=== PATIENT | female | born 1955 | race Caucasian/White ===

== ENCOUNTER 2017-07-15 13:05 | Inpatient (IN) | payer MEDICARE, MEDICAID ==
[2017-07-15] MEDS ORDERED: Metoclopramide 10 MG/2 ML SDV IVPUSH ONE ×2 (13:09→14:57)
[2017-07-15] MEDS ORDERED: HYDROmorphone 1 MG/ML Syringe IVPUSH ONE ×3 (13:13→18:26)
[2017-07-15] MEDS ORDERED: Sodium Chloride 0.9% 1,000 ML IV ONE (13:14)
--- NOTE | 2017-07-15 13:20 | EDM.PDOC ---
ED HPI GENERAL MEDICAL PROBLEM - General Chief Complaint: Abdominal Pain Stated Complaint: ABDOMINAL PAIN Time Seen by Provider: 07/15/17 13:05 Source of Information: Reports: Patient, EMS, Old Records History Limitations: Reports: No Limitations - History of Present Illness INITIAL COMMENTS - FREE TEXT/NARRATIVE: 61 yo female with a pHx of multiple bowel surgeries and who currently has a colostomy presents with acute onset about 0430h today of abdominal pain and vomiting. Feels some new bulges in her abdomen that weren't there before. No fever. No bleeding. Her last stool was a little on the hard side. Here via EMS. 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 gentamicin [Gentamicin] Allergy Severe anaphylaxis, Verified 07/15/17 13:42 resp. distress vancomycin Allergy Severe anaphylaxis Verified 07/15/17 13:42 amoxicillin [Amoxicillin] Allergy Intermediate generalized Verified 07/15/17 13: 42 rash ciprofloxacin Allergy Intermediate rash and Verified 07/15/17 13:42 swelling clarithromycin [From Biaxin] Allergy Intermediate generalized Verified 07/15/17 13:42 rash erythromycin base Allergy Intermediate Hives Verified 07/15/17 13:42 [Erythromycin Base] penicillin V [Penicillin V] Allergy Intermediate patchy-swollen Verified 13:42 skin pentazocine lactate Allergy Intermediate Hives Verified 07/15/17 13:42 [From Talwin] hyoscyamine sulfate Allergy Unknown Cannot Verified 07/15/17 13:42 [From Levsin] Remember Sulfa (Sulfonamide Allergy Unknown Cannot Verified 07/15/17 13:42 Antibiotics) Remember cyclobenzaprine HCl Allergy Cannot Verified 07/15/17 13:42 [From Flexeril] Remember ondansetron HCl Allergy Cannot Verified 07/15/17 13:42 [From Zofran (as Remember hydrochloride)] morphine AdvReac Intermediate Vomiting Verified 07/15/17 13:42 Home Meds: Home Meds Gabapentin [Neurontin] 1,200 mg PO BEDTIME 02/08/14 [History] Melatonin 20 mg PO BEDTIME PRN 02/08/14 [History] Ezetimibe [Zetia] 10 mg PO DAILY 12/21/14 [History] Sertraline HCl [Zoloft] 100 mg PO QPM 12/25/14 [History] Metoprolol Succinate 50 mg PO DAILY 02/16/15 [History] SitaGLIPtin [Januvia] 100 mg PO DAILY #30 tab 02/19/15 [Rx] Nitroglycerin [Nitrostat] 1 tab SL ASDIRECTED PRN 03/07/15 [History] Hydrocodone/Acetaminophen [Hydrocodon-Acetaminophn 10-325] 1 tab PO Q6HR PRN 11/04 [History] *Rapatha 1 injection IM ASDIRECTED 07/15/17 [History] Docusate Sodium 100 mg PO BID 07/15/17 [History] Hydroxychloroquine Sulfate 200 mg PO DAILY 07/15/17 [History] Pantoprazole Sodium 40 mg PO DAILY 07/15/17 [History] traZODone HCl [Trazodone HCl] 100 mg PO BEDTIME 07/15/17 [History] Past Medical History HEENT History: Reports: Impaired Vision Cardiovascular History: Reports: Afib, Angina, Arrhythmia, Blood Clots/VTE/DVT, CAD, High Cholesterol, Hypertension, GA, Other (See Below) Other Cardiovascular History: DVT cardiac arrest Mitral valve prolapse [place] TransiuminL ANGIOPLASTY Respiratory History: Reports: Asthma, Bronchitis, Recurrent, COPD, Intubation, Previous, Pneumothorax, SOB, Other (See Below) Other Respiratory History: pleursey Gastrointestinal History: Reports: Bowel Obstruction, Chronic Diarrhea, GI Bleed , Hemorrhoids, Hiatal Hernia, Jaundice, Other (See Below) Other Gastrointestinal History: chrohns disease, polyps Genitourinary History: Reports: Renal Calculus Other Genitourinary History: iliostomy 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: Reports: Dysfunctional Uterine Bleeding, Fibroids, , Spontaneous Musculoskeletal History: Reports: Back Pain, Chronic, Fracture, Fibromyalgia, Osteoarthritis, Osteoporosis, Other (See Below) Other Musculoskeletal History: bone spurs on feet Neurological History: Reports: Concussion, Headaches, Chronic, Head Trauma, Migraines, Seizure Psychiatric History: Reports: Anxiety, Depression, Panic Attack, PTSD Endocrine/Metabolic History: Reports: Diabetes, Type II, Obesity/BMI 30+, Osteoporosis Hematologic History: Reports: Anemia Oncologic (Cancer) History: Reports: Colon Dermatologic History: Reports: Cellulitis - Infectious Disease History Infectious Disease History: Reports: Chicken Pox - Past Surgical History GI Surgical History: Reports: Appendectomy, Colon, Colonoscopy, Colostomy, EGD, Hernia, Abdominal, Hernia, Inguinal, Hernia Repair/Other, Other (See Below) Female Surgical History: Reports: D&C, Hysterectomy, Other (See Below) Neurological Surgical History: Reports: Lumbar Spine Musculoskeletal Surgical History: Reports: Arthroscopic Knee, Shoulder Surgery, Other (See Below) Oncologic Surgical History: Reports: Other (See Below) Social & Family History - Family History Family Medical History: Unobtainable - Tobacco Use Smoking Status *Q: Current Every Day Smoker Years of Tobacco use: 40 Packs/Tins Daily: 0.5 Used Tobacco, but Quit: No Month/Year Tobacco Last Used: 02/11 Second Hand Smoke Exposure: Yes - Alcohol Use Days Per Week of Alcohol Use: 0 - Recreational Drug Use Recreational Drug Use: No ED ROS GENERAL - Review of Systems Review Of Systems: See Below Constitutional: Reports: No Symptoms HEENT: Reports: No Symptoms Respiratory: Reports: No Symptoms Cardiovascular: Reports: No Symptoms GI/Abdominal: Reports: Abdominal Pain, Decreased Appetite, Nausea, Vomiting. Denies: Black Stool, Bloody Stool, Diarrhea : Reports: No Symptoms Musculoskeletal: Reports: No Symptoms Skin: Reports: No Symptoms Neurological: Reports: No Symptoms ED EXAM, GI/ABD - Physical Exam Exam: See Below Exam Limited By: No Limitations General Appearance: Alert, WD/WN, Mild Distress Eyes: Bilateral: Normal Appearance Ears: Normal External Exam, Normal Canal, Hearing Grossly Normal, Normal TMs Nose: Normal Inspection, Normal Mucosa, No Blood Throat/Mouth: Normal Inspection, Normal Lips, Normal Oropharynx, Normal Voice, No Airway Compromise Head: Atraumatic, Normocephalic Neck: Normal Inspection, Supple, Non-Tender Respiratory/Chest: No Respiratory Distress, Lungs Clear, Normal Breath Sounds, No Accessory Muscle Use Cardiovascular: Regular Rate, Rhythm GI/Abdominal Exam: Distended, Guarding, Tender. No: Rigid, Rebound Back Exam: Normal Inspection. No: CVA Tenderness (R), CVA Tenderness (L) Extremities: Normal Inspection, Normal Range of Motion, Non-Tender, No Pedal Edema Neurological: Alert, Oriented, CN II-XII Intact, Normal Cognition, No Motor/ Sensory Deficits Psychiatric: Normal Affect, Normal Mood Skin Exam: Warm, Dry, Intact, Normal Color, No Rash Lymphatic: No Adenopathy Course - Vital Signs Text/Narrative:: Dr. Ward called @ 1451, will see in ER Partial relief with Dilaudid 2 mg IV and Reglan 10 mg IV Last Recorded V/S: Last Vital Signs Temp 36 C 07/15/17 14:48 Pulse 64 07/15/17 14:48 Resp 16 07/15/17 14:48 BP 171/74 H 07/15/17 14:48 Pulse Ox 97 07/15/17 14:48 - Orders/Labs/Meds Orders: Active Orders 24 hr Category Date Time Status UA W/MICROSCOPIC [URIN] Stat Lab 07/15/17 14:11 Ordered Iopamidol [Isovue-300 (61%)] Med 07/15/17 14:13 Active 100 ml IV . DIRECTED PRN Metoclopramide [Reglan] Med 07/15/17 14:57 Once 5 mg IVPUSH ONETIME ONE Sodium Chloride 0.9% [Normal Saline] 75 ml Med 07/15/17 14:15 Active IV ASDIRECTED Medication Orders Sodium Chloride (Normal Saline) 75 mls @ 3.2 mls/sec IV ASDIRECTED MARYBETH Last Admin: 07/15/17 14:32 Dose: 3 mls/sec Iopamidol (Isovue-300 (61%)) 100 ml IV . DIRECTED PRN PRN Reason: RADIOLOGY EXAM Stop: 07/16/17 14:14 Last Admin: 07/15/17 14:32 Dose: 100 ml Labs: Laboratory Tests 07/15/17 07/15/17 07/15/17 Range/Units 13:25 13:25 13:25 WBC 9.4 (4.5-11.0) K/uL RBC 4.97 (3.30-5.50) M/uL Hgb 15.0 (12.0-15.0) g/dL Hct 44.6 (36.0-48.0) % MCV 90 (80-98) fL MCH 30 (27-31) pg MCHC 34 (32-36) % Plt Count 290 (150-400) K/uL Sodium 142 (140-148) mmol/L Potassium 4.2 (3.6-5.2) mmol/L Chloride 102 (100-108) mmol/L Carbon Dioxide 31 (21-32) mmol/L Anion Gap 9.2 (5.0-14.0) mmol/L BUN 7 D (7-18) mg/dL Creatinine 0.8 (0.6-1.0) mg/dL Est Cr Clr Drug Dosing 72.72 mL/min Estimated GFR (MDRD) > 60 (>60) Glucose 197 H (74-106) mg/dL Calcium 9.5 (8.5-10.1) mg/dL Lipase 72 L (73-393) U/L Urine Color Urine Appearance Urine pH (4.5-8.0) Ur Specific [place] (1.008-1.030) Urine Protein (NEGATIVE) mg/dL Urine Glucose (UA) (NEGATIVE) mg/dL Urine Ketones (NEGATIVE) mg/dL Urine Occult Blood (NEGATIVE) Urine Nitrite (NEGATIVE) Urine Bilirubin (NEGATIVE) Urine Urobilinogen (NORMAL) mg/dL Ur Leukocyte Esterase (NEGATIVE) Urine RBC (0-5) Urine WBC (0-5) Ur Epithelial Cells Amorphous Sediment Urine Bacteria Urine Mucus 07/15/17 Range/Units 14:11 WBC (4.5-11.0) K/uL RBC (3.30-5.50) M/uL Hgb (12.0-15.0) g/dL Hct (36.0-48.0) % MCV (80-98) fL MCH (27-31) pg MCHC (32-36) % Plt Count (150-400) K/uL Sodium (140-148) mmol/L Potassium (3.6-5.2) mmol/L Chloride (100-108) mmol/L Carbon Dioxide (21-32) mmol/L Anion Gap (5.0-14.0) mmol/L BUN (7-18) mg/dL Creatinine (0.6-1.0) mg/dL Est Cr Clr Drug Dosing mL/min Estimated GFR (MDRD) (>60) Glucose (74-106) mg/dL Calcium (8.5-10.1) mg/dL Lipase (73-393) U/L Urine Color Yellow Urine Appearance Clear Urine pH 8.0 (4.5-8.0) Ur Specific [place] 1.015 (1.008-1.030) Urine Protein Negative (NEGATIVE) mg/dL Urine Glucose (UA) Normal (NEGATIVE) mg/dL Urine Ketones Negative (NEGATIVE) mg/dL Urine Occult Blood Negative (NEGATIVE) Urine Nitrite Negative (NEGATIVE) Urine Bilirubin Negative (NEGATIVE) Urine Urobilinogen Normal (NORMAL) mg/dL Ur Leukocyte Esterase Negative (NEGATIVE) Urine RBC 0-5 (0-5) Urine WBC 0-5 (0-5) Ur Epithelial Cells Not seen Amorphous Sediment Few Urine Bacteria Not seen Urine Mucus Not seen Meds: Medications Generic Name Dose Route Start Last Admin Trade Name Freq PRN Reason Stop Dose Admin Sodium Chloride 75 mls @ 3.2 mls/sec 07/15/17 14:15 07/15/17 14:32 Normal Saline IV 3 mls/sec ASDIRECTED MARYBETH Administration Iopamidol 100 ml 07/15/17 14:13 07/15/17 14:32 Isovue-300 (61%) IV 07/16/17 14:14 100 ml . DIRECTED PRN Administration RADIOLOGY EXAM Discontinued Medications Generic Name Dose Route Start Last Admin Trade Name [place] PRN Reason Stop Dose Admin Hydromorphone HCl 1 mg 07/15/17 13:13 07/15/17 13:32 Dilaudid IVPUSH 07/15/17 13:14 1 mg ONETIME ONE Administration Hydromorphone HCl 1 mg 07/15/17 13:29 07/15/17 13:39 Dilaudid IVPUSH 07/15/17 13:30 1 mg ONETIME ONE Administration Sodium Chloride 1,000 mls @ 1,000 mls/hr 07/15/17 13:14 07/15/17 13:20 Normal Saline IV 07/15/17 14:13 1,000 mls/hr .BOLUS ONE Administration Metoclopramide HCl 10 mg 07/15/17 13:09 07/15/17 13:31 Reglan IVPUSH 07/15/17 13:10 10 mg ONETIME ONE Administration - Radiology Interpretation Free Text/Narrative:: Nothing acute noted. CT Results Date: 07/15/17 CT Results Time: 14:50 Departure - Departure Time of Disposition: 15:30 Disposition: Refer to Observation Condition: Fair Clinical Impression: Abdominal pain Qualifiers: Abdominal location: epigastric Qualified Code(s): R10.13 - Epigastric pain Vomiting Qualifiers: Vomiting type: unspecified Vomiting Intractability: non-intractable Nausea presence: with nausea Qualified Code(s): R11.2 - Nausea with vomiting, unspecified - Discharge Information Referrals: PCP,None [Primary Care Provider] - Forms: ED Department Discharge - My Orders Last 24 Hours: My Active Orders 07/15/17 14:11 UA W/MICROSCOPIC [URIN] Stat 07/15/17 14:13 Iopamidol [Isovue-300 (61%)] 100 ml IV . DIRECTED PRN 07/15/17 14:15 Sodium Chloride 0.9% [Normal Saline] 75 ml IV ASDIRECTED 07/15/17 14:57 Metoclopramide [Reglan] 5 mg IVPUSH ONETIME ONE - Assessment/Plan Last 24 Hours: My Active Orders 07/15/17 14:11 UA W/MICROSCOPIC [URIN] Stat 07/15/17 14:13 Iopamidol [Isovue-300 (61%)] 100 ml IV . DIRECTED PRN 07/15/17 14:15 Sodium Chloride 0.9% [Normal Saline] 75 ml IV ASDIRECTED 07/15/17 14:57 Metoclopramide [Reglan] 5 mg IVPUSH ONETIME ONE
[2017-07-15] MEDS ORDERED: Iopamidol 612 MG/ML 100 ML Bottle IV PRN (14:13)
[2017-07-15] MEDS ORDERED: Sodium Chloride 0.9% 75 ML IV SCH (14:15)
--- NOTE | 2017-07-15 14:55 | CT ---
Abdomen Pelvis w Cont HISTORY: abdominal pain/vomiting-suspect obstruction Axial spiral enhanced CT scan of the abdomen and pelvis was obtained using IV contrast only. Coronal reconstructions were obtained. Auto dosage and iterative reconstruction techniques were employed. COMPARISON: 07/28/2015 FINDINGS: Heart size is within normal limits. Lung bases are clear. There is no pleural fluid. No foc al abnormality of the liver, spleen, gallbladder, increased, adrenal glands, or kidneys is identified . No renal or ureteral calculi are seen. There is no hydronephrosis or ureteral dilatation. No pelvic mass or abnormal fluid collections are seen. There is no free air or free fluid. I see no p elvic, retroperitoneal, or mesenteric adenopathy. Small bowel loops are nondistended. Subtotal colectomy changes are redemonstrated. Ileostomy is noted right lower quadrant. No complication is seen. Loop of small bowel herniated into the ileostomy site seen on the prior exam has reduced in the interval. I see no signs of small bowel obstruction. No ob vious lytic or blastic bony lesion can be seen. There are old anterior and posterior fusion changes L 4 through S1. Anterior abdominal wall graft material is noted. No complication is seen. IMPRESSION: 1. Negative for bowel obstruction. Subtotal colectomy changes are redemonstrated. Ileostomy is redemo nstrated right lower quadrant. Herniation of small bowel loop at the ileostomy site seen on the prior study of 07/28/2015 has reduced in the interval. 2. No other acute intra-abdominal or pelvic abnormality is identified. 3. Old anterior and posterior fusion changes and posterior unroofing procedure changes lower lumbar s pine appear stable. Findings were discussed with Dr. Norman in the emergency department at 1450 hours.
[2017-07-15] MEDS ORDERED: Famotidine 20 MG/2 ML SDV IVPUSH ONE (15:00)
[2017-07-15] MEDS ORDERED: Ondansetron 4 MG Tab.DIS PO PRN (18:09)
[2017-07-15] MEDS ORDERED: HYDROmorphone/Normal Saline 15 MG/30 ML PCA IV SCH (18:15)
--- NOTE | 2017-07-15 18:26 | PCM.HP ---
H&P History of Present Illness - General Date of Service: 07/15/17 Admit Problem/Dx: Admission Diagnosis/Problem Admission Diagnosis/Problem Abdominal pain - History of Present Illness Initial Comments - Free Text/Narative: The pain started this AM at 4:30 and has been progressive with a cramping type pain with N and V. Unable to hold down any food including liquid. She has had it before Has passed stool and passing urine. She does have a colostomy. Pain level is 9-10 cramping in nature. Onset of Symptoms: Reports: Today, Sudden Duration of Symptoms: Reports: Hour(s): Location: Reports: Abdomen Right Lower Abdomen Pain Score (Numeric/FACES): 9 - Related Data Allergies/Adverse Reactions: Allergies Allergy/AdvReac Type Severity Reaction Status Date / Time dicyclomine HCl [From Bentyl] Allergy Severe anaphylaxis Verified 07/15/17 22:24 flurbiprofen [From Ansaid] Allergy Severe anaphylaxis, Verified 07/15/17 22:24 tongue swelling. gentamicin [Gentamicin] Allergy Severe anaphylaxis, Verified 07/15/17 22:24 resp. distress vancomycin Allergy Severe anaphylaxis Verified 07/15/17 22:24 amoxicillin [Amoxicillin] Allergy Intermediate generalized Verified 07/15/17 22: 24 rash ciprofloxacin Allergy Intermediate rash and Verified 07/15/17 22:24 swelling clarithromycin [From Biaxin] Allergy Intermediate generalized Verified 07/15/17 22:24 rash erythromycin base Allergy Intermediate Hives Verified 07/15/17 22:24 [Erythromycin Base] penicillin V [Penicillin V] Allergy Intermediate patchy-swollen Verified 22:24 skin pentazocine lactate Allergy Intermediate Hives Verified 07/15/17 22:24 [From Talwin] hyoscyamine sulfate Allergy Unknown Cannot Verified 07/15/17 22:24 [From Levsin] Remember Sulfa (Sulfonamide Allergy Unknown Cannot Verified 07/15/17 22:24 Antibiotics) Remember cyclobenzaprine HCl Allergy Cannot Verified 07/15/17 22:24 [From Flexeril] Remember ondansetron HCl Allergy Cannot Verified 07/15/17 22:24 [From Zofran (as Remember hydrochloride)] morphine AdvReac Intermediate Vomiting Verified 07/15/17 22:24 Home Medications: Home Meds Gabapentin [Neurontin] 1,200 mg PO BEDTIME 02/08/14 [History] Melatonin 20 mg PO BEDTIME PRN 02/08/14 [History] Ezetimibe [Zetia] 10 mg PO DAILY 12/21/14 [History] Sertraline HCl [Zoloft] 100 mg PO QPM 12/25/14 [History] Metoprolol Succinate 50 mg PO DAILY 02/16/15 [History] SitaGLIPtin [Januvia] 100 mg PO DAILY #30 tab 02/19/15 [Rx] Nitroglycerin [Nitrostat] 1 tab SL ASDIRECTED PRN 03/07/15 [History] Hydrocodone/Acetaminophen [Hydrocodon-Acetaminophn 10-325] 1 tab PO Q6HR PRN 11/04 [History] *Rapatha 1 injection IM ASDIRECTED 07/15/17 [History] Docusate Sodium 100 mg PO BID 07/15/17 [History] Hydroxychloroquine Sulfate 200 mg PO DAILY 07/15/17 [History] Pantoprazole Sodium 40 mg PO DAILY 07/15/17 [History] traZODone HCl [Trazodone HCl] 100 mg PO BEDTIME 07/15/17 [History] Past Medical History HEENT History: Reports: Impaired Vision Cardiovascular History: Reports: Afib, Angina, Arrhythmia, Blood Clots/VTE/DVT, CAD, High Cholesterol, Hypertension, [place], Other (See Below) Other Cardiovascular History: DVT cardiac arrest Mitral valve prolapse [place] TransiuminL ANGIOPLASTY Respiratory History: Reports: Asthma, Bronchitis, Recurrent, COPD, Intubation, Previous, Pneumothorax, SOB, Other (See Below) Other Respiratory History: pleursey Gastrointestinal History: Reports: Bowel Obstruction, Chronic Diarrhea, GI Bleed , Hemorrhoids, Hiatal Hernia, Jaundice, Other (See Below) Other Gastrointestinal History: chrohns disease, polyps Genitourinary History: Reports: Renal Calculus Other Genitourinary History: iliostomy COGENERATION TECHNICIAN History: Reports: Dysfunctional Uterine Bleeding, Fibroids, , Spontaneous Musculoskeletal History: Reports: Back Pain, Chronic, Fracture, Fibromyalgia, Osteoarthritis, Osteoporosis, Other (See Below) Other Musculoskeletal History: bone spurs on feet Neurological History: Reports: Concussion, Headaches, Chronic, Head Trauma, Migraines, Seizure Psychiatric History: Reports: Anxiety, Depression, Panic Attack, PTSD Endocrine/Metabolic History: Reports: Diabetes, Type II, Obesity/BMI 30+, Osteoporosis Hematologic History: Reports: Anemia Oncologic (Cancer) History: Reports: Colon Dermatologic History: Reports: Cellulitis - Infectious Disease History Infectious Disease History: Reports: Chicken Pox - Past Surgical History GI Surgical History: Reports: Appendectomy, Colon, Colonoscopy, Colostomy, EGD, Hernia, Abdominal, Hernia, Inguinal, Hernia Repair/Other, Other (See Below) Female Surgical History: Reports: D&C, Hysterectomy, Other (See Below) Neurological Surgical History: Reports: Lumbar Spine Musculoskeletal Surgical History: Reports: Arthroscopic Knee, Shoulder Surgery, Other (See Below) Oncologic Surgical History: Reports: Other (See Below) Social & Family History - Family History Family Medical History: Unobtainable - Tobacco Use Smoking Status *Q: Current Every Day Smoker Years of Tobacco use: 40 Packs/Tins Daily: 0.5 Used Tobacco, but Quit: No Month/Year Tobacco Last Used: 02/11 Second Hand Smoke Exposure: Yes - Caffeine Use Caffeine Use: Reports: Coffee, Soda - Alcohol Use Days Per Week of Alcohol Use: 0 - Recreational Drug Use Recreational Drug Use: No H&P Review of Systems - Review of Systems: Review Of Systems: See Below General: Reports: Weakness, Diaphoresis HEENT: Reports: No Symptoms Pulmonary: Reports: No Symptoms Cardiovascular: Reports: No Symptoms Gastrointestinal: Reports: Abdominal Pain, Nausea, Vomiting Genitourinary: Reports: No Symptoms Musculoskeletal: Reports: No Symptoms Skin: Reports: No Symptoms Psychiatric: Reports: No Symptoms Neurological: Reports: No Symptoms Exam - Exam Exam: See Below - Vital Signs Vital Signs: Last Vital Signs Temp 96.8 F 07/15/17 14:48 Pulse 64 07/15/17 14:48 Resp 16 07/15/17 14:48 BP 171/74 H 07/15/17 14:48 Pulse Ox 97 07/15/17 14:48 Weight: 155 lb - Exam General: Alert, Oriented, 4 HEENT: PERRLA, Hearing Intact, Mucosa Moist & [place], Nares Patent, Normal Nasal Septum, Posterior Pharynx Clear, Conjunctiva Clear, EOMI, EACs Clear, TMs Clear Neck: Supple Lungs: Clear to Auscultation Cardiovascular: Regular Rate GI/Abdominal Exam: Guarding, Tender Back Exam: Vertebral Tenderness Extremities: Normal Inspection, Normal Range of Motion, Non-Tender, No Pedal Edema, Normal Capillary Refill Peripheral Pulses: 1+: Radial (L), Radial (R) Skin: Warm, Dry, Intact - Patient Data Lab Results Last 24 hrs: Laboratory Results - last 24 hr 07/15/17 07/15/17 07/15/17 Range/Units 13:25 13:25 13:25 WBC 9.4 (4.5-11.0) K/uL RBC 4.97 (3.30-5.50) M/uL Hgb 15.0 (12.0-15.0) g/dL Hct 44.6 (36.0-48.0) % MCV 90 (80-98) fL MCH 30 (27-31) pg MCHC 34 (32-36) % Plt Count 290 (150-400) K/uL Sodium 142 (140-148) mmol/L Potassium 4.2 (3.6-5.2) mmol/L Chloride 102 (100-108) mmol/L Carbon Dioxide 31 (21-32) mmol/L Anion Gap 9.2 (5.0-14.0) mmol/L BUN 7 D (7-18) mg/dL Creatinine 0.8 (0.6-1.0) mg/dL Est Cr Clr Drug Dosing 72.72 mL/min Estimated GFR (MDRD) > 60 (>60) Glucose 197 H (74-106) mg/dL Calcium 9.5 (8.5-10.1) mg/dL Lipase 72 L (73-393) U/L Urine Color Urine Appearance Urine pH (4.5-8.0) Ur Specific [place] (1.008-1.030) Urine Protein (NEGATIVE) mg/dL Urine Glucose (UA) (NEGATIVE) mg/dL Urine Ketones (NEGATIVE) mg/dL Urine Occult Blood (NEGATIVE) Urine Nitrite (NEGATIVE) Urine Bilirubin (NEGATIVE) Urine Urobilinogen (NORMAL) mg/dL Ur Leukocyte Esterase (NEGATIVE) Urine RBC (0-5) Urine WBC (0-5) Ur Epithelial Cells Amorphous Sediment Urine Bacteria Urine Mucus 07/15/17 Range/Units 14:11 WBC (4.5-11.0) K/uL RBC (3.30-5.50) M/uL Hgb (12.0-15.0) g/dL Hct (36.0-48.0) % MCV (80-98) fL MCH (27-31) pg MCHC (32-36) % Plt Count (150-400) K/uL Sodium (140-148) mmol/L Potassium (3.6-5.2) mmol/L Chloride (100-108) mmol/L Carbon Dioxide (21-32) mmol/L Anion Gap (5.0-14.0) mmol/L BUN (7-18) mg/dL Creatinine (0.6-1.0) mg/dL Est Cr Clr Drug Dosing mL/min Estimated GFR (MDRD) (>60) Glucose (74-106) mg/dL Calcium (8.5-10.1) mg/dL Lipase (73-393) U/L Urine Color Yellow Urine Appearance Clear Urine pH 8.0 (4.5-8.0) Ur Specific [place] 1.015 (1.008-1.030) Urine Protein Negative (NEGATIVE) mg/dL Urine Glucose (UA) Normal (NEGATIVE) mg/dL Urine Ketones Negative (NEGATIVE) mg/dL Urine Occult Blood Negative (NEGATIVE) Urine Nitrite Negative (NEGATIVE) Urine Bilirubin Negative (NEGATIVE) Urine Urobilinogen Normal (NORMAL) mg/dL Ur Leukocyte Esterase Negative (NEGATIVE) Urine RBC 0-5 (0-5) Urine WBC 0-5 (0-5) Ur Epithelial Cells Not seen Amorphous Sediment Few Urine Bacteria Not seen Urine Mucus Not seen Result Diagrams: 07/16/17 05:42 07/16/17 05:42 Problem List Initiated/Reviewed/Updated: Yes Orders Last 24hrs: Active Orders 24 hr Category Date Time Status Patient Status [ADT] Routine ADT 07/15/17 18:09 Ordered Ambulate [RC] QID Care 07/15/17 18:09 Ordered Height and Weight [RC] DAILY Care 07/15/17 18:09 Ordered Intake and Output [RC] QSHIFT Care 07/15/17 18:11 Ordered May Shower [RC] ASDIRECTED Care 07/15/17 18:09 Ordered Oxygen Therapy [RC] PRN Care 07/15/17 18:09 Ordered Up to Chair [RC] QID Care 07/15/17 18:09 Ordered VTE/DVT Education [RC] Per Unit Routine Care 07/15/17 18:09 Ordered Vital Signs [RC] Q4H Care 07/15/17 18:09 Ordered Clear Liquid Diet [DIET] Diet 07/16/17 Breakfast Ordered Abdomen 1V Flat [CR] AM Exams 07/16/17 05:11 Ordered BASIC METABOLIC PANEL,BMP [CHEM] AM Lab 07/16/17 05:11 Ordered CBC WITH AUTO DIFF [HEME] AM Lab 07/16/17 05:11 Ordered UA W/MICROSCOPIC [URIN] Stat Lab 07/15/17 14:11 Ordered HYDROmorphone/Normal Saline [Dilaudid REGISTERED N[employer]SE [employer]GICAL SERVICES 15 MG in NS Med 07/15/17 18:15 Ordered 30 ML] 15 mg IV ASDIRECTED Iopamidol [Isovue-300 (61%)] Med 07/15/17 14:13 Active 100 ml IV . DIRECTED PRN Nicotine [Habitrol] Med 07/16/17 09:00 Ordered 7 mg TRDERM DAILY Ondansetron [Zofran ODT] Med 07/15/17 18:09 Ordered 4 mg PO Q4H PRN Sodium Chloride 0.9% @ 125 MLS/HR (1000ml) Med 07/15/17 18:15 Ordered Sodium Chloride 0.9% [Normal Saline] 1,000 ml IV ASDIRECTED Sodium Chloride 0.9% [Normal Saline] 75 ml Med 07/15/17 14:15 Active IV ASDIRECTED Resuscitation Status Routine Resus Stat 07/15/17 18:09 Ordered Medication Orders Hydromorphone HCl (Dilaudid Switch Box Installer 15 Mg In Ns 30 Ml) 15 mg IV ASDIRECTED MARYBETH; Protocol Sodium Chloride (Normal Saline) 75 mls @ 3.2 mls/sec IV ASDIRECTED MARYBETH Last Admin: 07/15/17 14:32 Dose: 3 mls/sec Sodium Chloride (Normal Saline) 1,000 mls @ 125 mls/hr IV ASDIRECTED MARYBETH Iopamidol (Isovue-300 (61%)) 100 ml IV . DIRECTED PRN PRN Reason: RADIOLOGY EXAM Stop: 07/16/17 14:14 Last Admin: 07/15/17 14:32 Dose: 100 ml Nicotine (Habitrol) 7 mg TRDERM DAILY MARYBETH Ondansetron HCl (Zofran Odt) 4 mg PO Q4H PRN PRN Reason: Nausea able to take PO Assessment/Plan Comment:: Assessment/Plan: #1. Abdominal pain: Will admitted to the hospital regular floor and give Dilaudid for pain control. CT and flat plate has been negative. Will repeat the Abd X-Ray in the morning. I feel that this could e gastroenteritis for food. Will hold PO meds until able to hold down food and liquid. #2. DM II: Cont with Januvia #3. HTN: Continue with Metoprolol #4. ASHD with History of [place] #5. Depression: Continue with Sertraline #6. HLD: Continue with Zetia
[2017-07-15] MEDS ORDERED: Ondansetron 4 MG/2 ML SDV ONE (20:30)
[2017-07-15] MEDS: Sodium Chloride 0.9% 1,000 ML IV SCH (21:05)
[2017-07-15] MEDS: Ondansetron 4 MG/2 ML SDV IVPUSH PRN (21:13)
[2017-07-15] MEDS ORDERED: Melatonin 3 MG Tab PO PRN (22:40)
[2017-07-15] MEDS ORDERED: Acetaminophen 325 MG Tab PO PRN (22:43)
[2017-07-15] MEDS ORDERED: Gabapentin 300 MG Cap PO SCH (23:30)
[2017-07-15] MEDS ORDERED: Ezetimibe 10 MG Tab PO SCH (23:30)
[2017-07-15] MEDS ORDERED: Sertraline 50 MG Tab PO SCH (23:30)
[2017-07-15] MEDS ORDERED: Metoprolol Succinate 50 MG Tab.ER PO SCH (23:30)
[2017-07-15] MEDS ORDERED: Hydroxychloroquine 200 MG Tab PO SCH (23:30)
[2017-07-15] MEDS ORDERED: traZODone 50 MG Tab PO SCH (23:30)
[2017-07-16] MEDS: Sodium Chloride 0.9% 1,000 ML IV SCH (04:20)
[2017-07-16] MEDS: Ondansetron 4 MG/2 ML SDV IVPUSH PRN (07:23)
[2017-07-16] MEDS ORDERED: Pantoprazole 40 MG Tab.CR PO SCH (07:30)
[2017-07-16] MEDS ORDERED: Nicotine 7 MG/24 Hr Patch TRDERM SCH (09:00)
--- NOTE | 2017-07-16 09:06 | CR ---
Abdomen 1V Flat HISTORY: abd. pain FINDINGS: Bowel gas pattern is nonspecific. No obstruction is identified. No mass organomegaly can be seen. Right-sided ostomy is redemonstrated. There are old unroofing procedure changes with anterior and posterior fusion lower lumbar spine extending from L4 through S1. Wire coils consistent with mesh graft material are redemonstrated. Lung bases are clear. There is scattered atherosclerotic vascular calcification. IMPRESSION: Old postoperative changes. Otherwise nonspecific abdomen. Ostomy is noted on the right. N o significant interval change compared with 07/28/2015.
[2017-07-16] MEDS ORDERED: Naloxone 0.4 MG/ML SDV IV PRN (10:24)
[2017-07-16] MEDS ORDERED: fentaNYL 100 MCG/2 ML SDV ONE (12:36)
[2017-07-16] MEDS ORDERED: Midazolam 1 MG/ML 2 ML SDV ONE (12:37)
[2017-07-16] MEDS ORDERED: Propofol 200 MG/20 ML SDV ONE (12:37)
[2017-07-16 13:17] VITALS: BP 113/57
--- NOTE | 2017-07-16 17:19 | PCM.PN ---
- General Info Date of Service: 07/16/17 Functional Status: Reports: Pain Controlled - Review of Systems General: Reports: Weakness HEENT: Reports: No Symptoms Pulmonary: Reports: No Symptoms Cardiovascular: Reports: No Symptoms Gastrointestinal: Reports: Abdominal Pain, Nausea Genitourinary: Reports: No Symptoms Musculoskeletal: Reports: No Symptoms Skin: Reports: No Symptoms Psychiatric: Reports: No Symptoms - Patient Data Vitals - Most Recent: Last Vital Signs Temp 97.5 F 07/16/17 13:15 Pulse 66 07/16/17 13:15 Resp 14 07/16/17 13:15 BP 113/57 L 07/16/17 13:15 Pulse Ox 94 L 07/16/17 13:15 Weight - Most Recent: 155 lb I&O - Last 24 Hours: Intake & Output 07/16/17 07/16/17 07/16/17 06:59 14:59 22:59 Intake Total 1236 100 Output Total 550 Balance 686 100 Lab Results Last 24 Hours: Laboratory Results - last 24 hr 07/16/17 07/16/17 Range/Units 05:42 05:42 WBC 12.0 H (4.5-11.0) K/uL RBC 4.41 (3.30-5.50) M/uL Hgb 13.4 (12.0-15.0) g/dL Hct 40.1 (36.0-48.0) % MCV 91 (80-98) fL MCH 30 (27-31) pg MCHC 33 (32-36) % Plt Count 275 (150-400) K/uL Neut % (Auto) 65 (36-66) % Lymph % (Auto) 27 (24-44) % [place] % (Auto) 7 H (2-6) % Eos % (Auto) 1 L (2-4) % Baso % (Auto) 0 (0-1) % Sodium 140 (140-148) mmol/L Potassium 3.8 (3.6-5.2) mmol/L Chloride 101 (100-108) mmol/L Carbon Dioxide 30 (21-32) mmol/L Anion Gap 9.5 (5.0-14.0) mmol/L BUN 8 (7-18) mg/dL Creatinine 0.8 (0.6-1.0) mg/dL Est Cr Clr Drug Dosing 61.86 mL/min Estimated GFR (MDRD) > 60 (>60) Glucose 123 H (74-106) mg/dL Calcium 8.9 (8.5-10.1) mg/dL Med Orders - Current: Current Medications Acetaminophen (Tylenol) 650 mg PO Q4H PRN PRN Reason: Pain Alogliptin Benzoate (Alogliptin) 25 mg PO DAILY [facility] Last Admin: 07/16/17 08:56 Dose: Not Given Ezetimibe (Zetia) 10 mg PO BEDTIME MARYBETH Last Admin: 07/15/17 23:41 Dose: 10 mg Gabapentin (Neurontin) 1,200 mg PO BEDTIME MARYBETH Last Admin: 07/15/17 23:42 Dose: 1,200 mg Hydromorphone HCl (Dilaudid Security Control Room Officer 15 Mg In Ns 30 Ml) 15 mg IV ASDIRECTED [facility]; Protocol Last Admin: 07/15/17 21:05 Dose: 15 mg Hydroxychloroquine Sulfate (Plaquenil) 200 mg PO BEDTIME MARYBETH Last Admin: 07/15/17 23:42 Dose: 200 mg Sodium Chloride (Normal Saline) 1,000 mls @ 125 mls/hr IV ASDIRECTED [facility] Last Admin: 07/16/17 04:20 Dose: 125 mls/hr Melatonin (Melatonin) 9 mg PO BEDTIME PRN PRN Reason: Sleep Metoprolol Succinate (Toprol Xl) 50 mg PO BEDTIME [facility] Last Admin: 07/15/17 23:42 Dose: 50 mg Naloxone HCl (Narcan) 0.1 mg IV ASDIRECTED PRN PRN Reason: decreased respiratory rate Nicotine (Habitrol) 7 mg TRDERM DAILY [facility] Last Admin: 07/16/17 08:56 Dose: Not Given Ondansetron HCl (Zofran) 4 mg IVPUSH Q4H PRN PRN Reason: Nausea/Vomiting Last Admin: 07/16/17 07:23 Dose: 4 mg Pantoprazole Sodium (Protonix) 40 mg PO ACBREAKFAST [facility] Last Admin: 07/16/17 07:40 Dose: 40 mg Sertraline HCl (Zoloft) 100 mg PO BEDTIME [facility] Last Admin: 07/16/17 01:14 Dose: Not Given Trazodone HCl (Trazodone) 100 mg PO BEDTIME [facility] Last Admin: 07/15/17 23:42 Dose: 100 mg Discontinued Medications Famotidine (Pepcid) 20 mg IVPUSH ONETIME ONE Stop: 07/15/17 15:01 Last Admin: 07/15/17 15:10 Dose: 20 mg Fentanyl (Sublimaze) Confirm Administered Dose 100 mcg .ROUTE .STK-MED ONE Stop: 07/16/17 12:37 Hydromorphone HCl (Dilaudid) 1 mg IVPUSH ONETIME ONE Stop: 07/15/17 13:14 Last Admin: 07/15/17 13:32 Dose: 1 mg Hydromorphone HCl (Dilaudid) 1 mg IVPUSH ONETIME ONE Stop: 07/15/17 13:30 Last Admin: 07/15/17 13:39 Dose: 1 mg Hydromorphone HCl (Dilaudid) 1 mg IVPUSH ONETIME ONE Stop: 07/15/17 18:27 Last Admin: 07/15/17 18:36 Dose: 1 mg Sodium Chloride (Normal Saline) 1,000 mls @ 1,000 mls/hr IV .BOLUS ONE Stop: 07/15/17 14:13 Last Admin: 07/15/17 13:20 Dose: 1,000 mls/hr Sodium Chloride (Normal Saline) 75 mls @ 3.2 mls/sec IV ASDIRECTED MARYBETH Last Admin: 07/15/17 14:32 Dose: 3 mls/sec Iopamidol (Isovue-300 (61%)) 100 ml IV . DIRECTED PRN PRN Reason: RADIOLOGY EXAM Stop: 07/16/17 14:14 Last Admin: 07/15/17 14:32 Dose: 100 ml Metoclopramide HCl (Reglan) 10 mg IVPUSH ONETIME ONE Stop: 07/15/17 13:10 Last Admin: 07/15/17 13:31 Dose: 10 mg Metoclopramide HCl (Reglan) 5 mg IVPUSH ONETIME ONE Stop: 07/15/17 14:58 Last Admin: 07/15/17 15:09 Dose: 5 mg Midazolam HCl (Versed 1 Mg/Ml) Confirm Administered Dose 2 mg .ROUTE .STK-MED ONE Stop: 07/16/17 12:38 Ondansetron HCl (Zofran) Confirm Administered Dose 4 mg .ROUTE .STK-MED ONE Stop: 07/15/17 20:31 Last Admin: 07/15/17 22:13 Dose: Not Given Propofol (Diprivan 20 Ml) Confirm Administered Dose 200 mg .ROUTE .STK-MED ONE Stop: 07/16/17 12:38 - Exam General: Alert, Oriented Neck: Supple Lungs: Clear to Auscultation, Normal Respiratory Effort Cardiovascular: Regular Rate, Regular Rhythm GI/Abdominal Exam: Normal Bowel Sounds Extremities: Normal Inspection, Normal Range of Motion, Non-Tender, No Pedal Edema, Normal Capillary Refill Peripheral Pulses: 1+: Radial (L), Radial (R) Skin: Warm, Dry, Intact Psy/Mental Status: Alert, Normal Affect - Problem List Review Problem List Initiated/Reviewed/Updated: Yes - My Orders Last 24 Hours: My Active Orders 07/15/17 18:09 Patient Status [ADT] Routine Ambulate [RC] QID Height and Weight [RC] DAILY May Shower [RC] ASDIRECTED Oxygen Therapy [RC] PRN Up to Chair [RC] QID VTE/DVT Education [RC] Per Unit Routine Vital Signs [RC] Q4H Resuscitation Status Routine 07/15/17 18:11 Intake and Output [RC] QSHIFT 07/15/17 18:15 HYDROmorphone/Normal Saline [Dilaudid DIVERSIFIED CROPS SUPERVISOR 15 MG in NS 30 ML] 15 mg IV ASDIRECTED Sodium Chloride 0.9% [Normal Saline] 1,000 ml IV ASDIRECTED 07/15/17 20:30 Ondansetron [Zofran] 4 mg IVPUSH Q4H PRN 07/15/17 22:40 Melatonin 9 mg PO BEDTIME PRN 07/15/17 22:43 Acetaminophen [Tylenol] 650 mg PO Q4H PRN 07/15/17 23:30 Ezetimibe [Zetia] 10 mg PO BEDTIME Gabapentin [Neurontin] 1,200 mg PO BEDTIME Hydroxychloroquine [Plaquenil] 200 mg PO BEDTIME Metoprolol Succinate [Toprol XL] 50 mg PO BEDTIME Sertraline [Zoloft] 100 mg PO BEDTIME traZODone 100 mg PO BEDTIME 07/16/17 07:30 Pantoprazole [ProTONIX] 40 mg PO ACBREAKFAST 07/16/17 09:00 Alogliptin Benzoate [Alogliptin] 25 mg PO DAILY Nicotine [Habitrol] 7 mg TRDERM DAILY 07/16/17 10:24 Naloxone [Narcan] 0.1 mg IV ASDIRECTED PRN 07/16/17 Breakfast Clear Liquid Diet [DIET] 07/16/17 Dinner Regular Diet [DIET] - Plan Plan:: Assessment/Plan: #1. Abdominal pain: EGD was done which showed a HH and Thickening of the stomach wall. I feel the problem was gastroenteritis. #2. DM II: Cont with Januvia #3. HTN: Continue with Metoprolol #4. ASHD with History of [place] #5. Depression: Continue with Sertraline #6. HLD: Continue with Zetia Will discharge home today.
--- NOTE | 2017-07-16 17:25 | PCM.DCSUM1 ---
Discharge Summary - Hospital Course HPI Initial Comments: The pain started yesterday AM at 4:30 and has been progressive with a cramping type pain with N and V. Unable to hold down any food including liquid. She has had it before Has passed stool and passing urine. She does have a colostomy. Pain level was 9-10 cramping in nature. - Discharge Data Discharge Date: 07/16/17 Discharge Disposition: Home, Self-Care 01 Condition: Fair - Patient Summary/Data Hospital Course: She was admitted having cramping pain in the abd. An EGD was done with showed thickening of the stomach wall biopsy pending. Her pain is much improved. Will discharge home today. - Patient Instructions Diet: Heart Healthy Diet, Diabetic Diet Activity: As Tolerated - Discharge Plan Home Medications: Home Meds Gabapentin [Neurontin] 1,200 mg PO BEDTIME 02/08/14 [History] Melatonin 20 mg PO BEDTIME PRN 02/08/14 [History] Ezetimibe [Zetia] 10 mg PO DAILY 12/21/14 [History] Sertraline HCl [Zoloft] 100 mg PO QPM 12/25/14 [History] Metoprolol Succinate 50 mg PO DAILY 02/16/15 [History] SitaGLIPtin [Januvia] 100 mg PO DAILY #30 tab 02/19/15 [Rx] Nitroglycerin [Nitrostat] 1 tab SL ASDIRECTED PRN 03/07/15 [History] Hydrocodone/Acetaminophen [Hydrocodon-Acetaminophn 10-325] 1 tab PO Q6HR PRN 11/04 [History] *Rapatha 1 injection IM ASDIRECTED 07/15/17 [History] Docusate Sodium 100 mg PO BID 07/15/17 [History] Hydroxychloroquine Sulfate 200 mg PO DAILY 07/15/17 [History] Pantoprazole Sodium 40 mg PO DAILY 07/15/17 [History] traZODone HCl [Trazodone HCl] 100 mg PO BEDTIME 07/15/17 [History] Forms: ED Department Discharge Referrals: PCP,None [Ordering Only Provider] - - Patient Data Vitals - Most Recent: Last Vital Signs Temp 97.5 F 07/16/17 13:15 Pulse 66 07/16/17 13:15 Resp 14 07/16/17 13:15 BP 113/57 L 07/16/17 13:15 Pulse Ox 94 L 07/16/17 13:15 Weight - Most Recent: 155 lb I&O - Last 24 hours: Intake & Output 07/16/17 07/16/17 07/16/17 06:59 14:59 22:59 Intake Total 1236 100 Output Total 550 Balance 686 100 Lab Results - Last 24 hrs: Laboratory Results - last 24 hr 07/16/17 07/16/17 Range/Units 05:42 05:42 WBC 12.0 H (4.5-11.0) K/uL RBC 4.41 (3.30-5.50) M/uL Hgb 13.4 (12.0-15.0) g/dL Hct 40.1 (36.0-48.0) % MCV 91 (80-98) fL MCH 30 (27-31) pg MCHC 33 (32-36) % Plt Count 275 (150-400) K/uL Neut % (Auto) 65 (36-66) % Lymph % (Auto) 27 (24-44) % [place] % (Auto) 7 H (2-6) % Eos % (Auto) 1 L (2-4) % Baso % (Auto) 0 (0-1) % Sodium 140 (140-148) mmol/L Potassium 3.8 (3.6-5.2) mmol/L Chloride 101 (100-108) mmol/L Carbon Dioxide 30 (21-32) mmol/L Anion Gap 9.5 (5.0-14.0) mmol/L BUN 8 (7-18) mg/dL Creatinine 0.8 (0.6-1.0) mg/dL Est Cr Clr Drug Dosing 61.86 mL/min Estimated GFR (MDRD) > 60 (>60) Glucose 123 H (74-106) mg/dL Calcium 8.9 (8.5-10.1) mg/dL Med Orders - Current: Current Medications Acetaminophen (Tylenol) 650 mg PO Q4H PRN PRN Reason: Pain Alogliptin Benzoate (Alogliptin) 25 mg PO DAILY [facility] Last Admin: 07/16/17 08:56 Dose: Not Given Ezetimibe (Zetia) 10 mg PO BEDTIME [facility] Last Admin: 07/15/17 23:41 Dose: 10 mg Gabapentin (Neurontin) 1,200 mg PO BEDTIME [facility] Last Admin: 07/15/17 23:42 Dose: 1,200 mg Hydromorphone HCl (Dilaudid Hospice Nurse Practitioner 15 Mg In Ns 30 Ml) 15 mg IV ASDIRECTED [facility]; Protocol Last Admin: 07/15/17 21:05 Dose: 15 mg Hydroxychloroquine Sulfate (Plaquenil) 200 mg PO BEDTIME MARYBETH Last Admin: 07/15/17 23:42 Dose: 200 mg Sodium Chloride (Normal Saline) 1,000 mls @ 125 mls/hr IV ASDIRECTED [facility] Last Admin: 07/16/17 04:20 Dose: 125 mls/hr Melatonin (Melatonin) 9 mg PO BEDTIME PRN PRN Reason: Sleep Metoprolol Succinate (Toprol Xl) 50 mg PO BEDTIME [facility] Last Admin: 07/15/17 23:42 Dose: 50 mg Naloxone HCl (Narcan) 0.1 mg IV ASDIRECTED PRN PRN Reason: decreased respiratory rate Nicotine (Habitrol) 7 mg TRDERM DAILY [facility] Last Admin: 07/16/17 08:56 Dose: Not Given Ondansetron HCl (Zofran) 4 mg IVPUSH Q4H PRN PRN Reason: Nausea/Vomiting Last Admin: 07/16/17 07:23 Dose: 4 mg Pantoprazole Sodium (Protonix) 40 mg PO ACBREAKFAST [facility] Last Admin: 07/16/17 07:40 Dose: 40 mg Sertraline HCl (Zoloft) 100 mg PO BEDTIME [facility] Last Admin: 07/16/17 01:14 Dose: Not Given Trazodone HCl (Trazodone) 100 mg PO BEDTIME [facility] Last Admin: 07/15/17 23:42 Dose: 100 mg Discontinued Medications Famotidine (Pepcid) 20 mg IVPUSH ONETIME ONE Stop: 07/15/17 15:01 Last Admin: 07/15/17 15:10 Dose: 20 mg Fentanyl (Sublimaze) Confirm Administered Dose 100 mcg .ROUTE .STK-MED ONE Stop: 07/16/17 12:37 Hydromorphone HCl (Dilaudid) 1 mg IVPUSH ONETIME ONE Stop: 07/15/17 13:14 Last Admin: 07/15/17 13:32 Dose: 1 mg Hydromorphone HCl (Dilaudid) 1 mg IVPUSH ONETIME ONE Stop: 07/15/17 13:30 Last Admin: 07/15/17 13:39 Dose: 1 mg Hydromorphone HCl (Dilaudid) 1 mg IVPUSH ONETIME ONE Stop: 07/15/17 18:27 Last Admin: 07/15/17 18:36 Dose: 1 mg Sodium Chloride (Normal Saline) 1,000 mls @ 1,000 mls/hr IV .BOLUS ONE Stop: 07/15/17 14:13 Last Admin: 07/15/17 13:20 Dose: 1,000 mls/hr Sodium Chloride (Normal Saline) 75 mls @ 3.2 mls/sec IV ASDIRECTED [facility]ARYB[facility] Last Admin: 07/15/17 14:32 Dose: 3 mls/sec Iopamidol (Isovue-300 (61%)) 100 ml IV . DIRECTED PRN PRN Reason: RADIOLOGY EXAM Stop: 07/16/17 14:14 Last Admin: 07/15/17 14:32 Dose: 100 ml Metoclopramide HCl (Reglan) 10 mg IVPUSH ONETIME ONE Stop: 07/15/17 13:10 Last Admin: 07/15/17 13:31 Dose: 10 mg Metoclopramide HCl (Reglan) 5 mg IVPUSH ONETIME ONE Stop: 07/15/17 14:58 Last Admin: 07/15/17 15:09 Dose: 5 mg Midazolam HCl (Versed 1 Mg/Ml) Confirm Administered Dose 2 mg .ROUTE .STK-MED ONE Stop: 07/16/17 12:38 Ondansetron HCl (Zofran) Confirm Administered Dose 4 mg .ROUTE .STK-MED ONE Stop: 07/15/17 20:31 Last Admin: 07/15/17 22:13 Dose: Not Given Propofol (Diprivan 20 Ml) Confirm Administered Dose 200 mg .ROUTE .STK-MED ONE Stop: 07/16/17 12:38
--- NOTE | 2017-07-19 10:33 | PROC ---
DATE OF PROCEDURE: 07/16/2017 INDICATION: Audrey is a 61-year-old female, comes in because of abdominal pain. She was admitted to the ICU as an overflow, should have been on the regular medical floor last night, having cramping abdominal pain. She has had this before, but this she said was worse than it has been previously. The pain started at 0430 in the morning yesterday and continued throughout the day and finally came to the emergency room by ambulance and then was admitted. She does have a history of a colon resection with a colostomy that is evident. She was passing stool into the bag through the day, but she was vomiting, unable hold onto any liquids. The risks and benefits were explained to the patient for an esophageal gastroduodenoscopy. PROCEDURE: The Olympus 180 scope was placed into the pharynx, into the esophagus without difficulty and advanced under direct vision into the body of the stomach. The pylorus was identified and advanced into the first and second part of the duodenum. There was significant erythema noted in the duodenal bulb. The tube was brought back into the stomach and immediately noted a change in the mucosal architecture. Pictures were taken of this. Biopsy was also taken. There were no ulcerations noted in the duodenal bulb, nor in the stomach. Air was withdrawn from the stomach. The GE junction was identified. There was a hiatal hernia noted. The remainder of the esophagus was unremarkable. We got good observation of the vocal cords, they moved symmetrically, and no obvious pathology noted. The tube was removed, and the patient tolerated the procedure well. Anesthesia was given by nurse fresh meat grader. We used 2 mg of Versed, 100 mcg of fentanyl, and 120 mg of propofol. 1. Preop: Abdominal pain. 2. Postop: Duodenitis. 3. Gastric mucosal thickening. Biopsies pending for cytology. This does not appear to be malignant, however. 4. Hiatal hernia. I will speak with her once the biopsy report is completed. Mehrdad Ward MD /[id number]
== END 2017-07-16 18:16 | disposition home or self-care (01) | DRG 392 ==
LOC: JP.ED 13:05 → JP.ICU 18:09
PROVIDERS: ADMIT Internal Medicine; ATTEND Internal Medicine
PROC: 0DB68ZX Excision of Stomach, Via Natural or Artificial Opening Endoscopic, Diagnostic (ICD-10-PCS; principal; 2017-07-16)
DX: K52.9 Noninfective gastroenteritis and colitis, unspecified (principal); K50.90 Crohn's disease, unspecified, without complications; K44.9 Diaphragmatic hernia without obstruction or gangrene; Z93.3 Colostomy status; I10 Essential (primary) hypertension; F17.210 Nicotine dependence, cigarettes, uncomplicated; J44.9 Chronic obstructive pulmonary disease, unspecified; E11.9 Type 2 diabetes mellitus without complications; R11.2 Nausea with vomiting, unspecified; Z79.84 Long term (current) use of oral hypoglycemic drugs; E78.5 Hyperlipidemia, unspecified; I25.119 Atherosclerotic heart disease of native coronary artery with unspecified angina pectoris; Z86.718 Personal history of other venous thrombosis and embolism; Z86.74 Personal history of sudden cardiac arrest; M54.9 Dorsalgia, unspecified; G89.29 Other chronic pain; F41.9 Anxiety disorder, unspecified; F32.9 Major depressive disorder, single episode, unspecified; Z85.038 Personal history of other malignant neoplasm of large intestine; Z90.49 Acquired absence of other specified parts of digestive tract; I25.2 Old myocardial infarction; H54.7 Unspecified visual loss; Z88.1 Allergy status to other antibiotic agents; Z88.5 Allergy status to narcotic agent; Z88.0 Allergy status to penicillin; Z88.2 Allergy status to sulfonamides; Z88.8 Allergy status to other drugs, medicaments and biological substances
CPT/HCPCS: 36415; 74177 ×2; 80048; 81001; 83690; 85027; 96361; 96374; 96375; 99285; J1170 ×2; J2765 ×2; J7030; J7040; Q9967; 74018; 74018-26; 85025; 88305; 99283; A9270-GY; J2250; J2405; J2704; J3010; S0028

== ENCOUNTER 2017-07-17 11:00 | Emergency (ER) | payer MEDICARE, MEDICAID ==
[2017-07-17 11:19] VITALS: BP 201/94
[2017-07-17] MEDS ORDERED: Ondansetron 4 MG/2 ML SDV IVPUSH ONE ×2 (11:20→14:37)
[2017-07-17] MEDS ORDERED: Meperidine PF 100 MG/ML Syringe IVPUSH PRN (11:20)
[2017-07-17] MEDS ORDERED: Ketorolac 30 MG/ML SDV IVPUSH ONE (11:20)
[2017-07-17] MEDS ORDERED: Ondansetron 4 MG/2 ML SDV ONE (11:26)
--- NOTE | 2017-07-17 12:49 | EDM.PDOC ---
ED HPI GENERAL MEDICAL PROBLEM - General Chief Complaint: Abdominal Pain Stated Complaint: MEDICAL Time Seen by Provider: 07/17/17 11:25 Source of Information: Reports: Patient History Limitations: Reports: No Limitations - History of Present Illness INITIAL COMMENTS - FREE TEXT/NARRATIVE: 61-year-old female who has chronic dependence on opiates for pain control was released from the hospital yesterday after 2 days evaluation of abdominal pain, nausea and vomiting. There was no bowel obstruction, while in the hospital she 3 meals but continued to have [employer] narcotic pain control. She was discharged yesterday, felt somewhat better while at home but started getting nauseated again overnight and today has had persistent abdominal pain with vomiting. She is very hyperdramatic and insisting she needs something for pain right away. No fevers or chills. The output of her ileostomy is normal. She has no abdominal distention, no radiation of pain to the back. Severity: Moderate Associated Symptoms: Reports: Nausea/Vomiting. Denies: Chest Pain, Cough, Shortness of Breath - Related Data Allergies Allergy/AdvReac Type Severity Reaction Status Date / Time dicyclomine HCl [From Bentyl] Allergy Severe anaphylaxis Verified 07/17/17 11:06 flurbiprofen [From Ansaid] Allergy Severe anaphylaxis, Verified 07/17/17 11:06 tongue swelling. gentamicin [Gentamicin] Allergy Severe anaphylaxis, Verified 07/17/17 11:06 resp. distress vancomycin Allergy Severe anaphylaxis Verified 07/17/17 11:06 amoxicillin [Amoxicillin] Allergy Intermediate generalized Verified 07/17/17 11: 06 rash ciprofloxacin Allergy Intermediate rash and Verified 07/17/17 11:06 swelling clarithromycin [From Biaxin] Allergy Intermediate generalized Verified 07/17/17 11:06 rash erythromycin base Allergy Intermediate Hives Verified 07/17/17 11:06 [Erythromycin Base] penicillin V [Penicillin V] Allergy Intermediate patchy-swollen Verified 11:06 skin pentazocine lactate Allergy Intermediate Hives Verified 07/17/17 11:06 [From Talwin] hyoscyamine sulfate Allergy Unknown Cannot Verified 07/17/17 11:06 [From Levsin] Remember Sulfa (Sulfonamide Allergy Unknown Cannot Verified 07/17/17 11:06 Antibiotics) Remember cyclobenzaprine HCl Allergy Cannot Verified 07/17/17 11:06 [From Flexeril] Remember ondansetron HCl Allergy Cannot Verified 07/17/17 11:06 [From Zofran (as Remember hydrochloride)] morphine AdvReac Intermediate Vomiting Verified 07/17/17 11:06 Home Meds: Home Meds Gabapentin [Neurontin] 1,200 mg PO BEDTIME 02/08/14 [History] Melatonin 20 mg PO BEDTIME PRN 02/08/14 [History] Ezetimibe [Zetia] 10 mg PO DAILY 12/21/14 [History] Sertraline HCl [Zoloft] 100 mg PO QPM 12/25/14 [History] Metoprolol Succinate 50 mg PO DAILY 02/16/15 [History] SitaGLIPtin [Januvia] 100 mg PO DAILY #30 tab 02/19/15 [Rx] Nitroglycerin [Nitrostat] 1 tab SL ASDIRECTED PRN 03/07/15 [History] Hydrocodone/Acetaminophen [Hydrocodon-Acetaminophn 10-325] 1 tab PO Q6HR PRN 11/04 [History] *Rapatha 1 injection IM ASDIRECTED 07/15/17 [History] Docusate Sodium 100 mg PO BID 07/15/17 [History] Hydroxychloroquine Sulfate 200 mg PO DAILY 07/15/17 [History] Pantoprazole Sodium 40 mg PO DAILY 07/15/17 [History] traZODone HCl [Trazodone HCl] 100 mg PO BEDTIME 07/15/17 [History] Past Medical History HEENT History: Reports: Impaired Vision Cardiovascular History: Reports: Afib, Angina, Arrhythmia, Blood Clots/VTE/DVT, CAD, High Cholesterol, Hypertension, [place], Other (See Below) Other Cardiovascular History: DVT cardiac arrest Mitral valve prolapse [place] TransiuminL ANGIOPLASTY Respiratory History: Reports: Asthma, Bronchitis, Recurrent, COPD, Intubation, Previous, Pneumothorax, SOB, Other (See Below) Other Respiratory History: pleursey Gastrointestinal History: Reports: Bowel Obstruction, Chronic Diarrhea, GI Bleed , Hemorrhoids, Hiatal Hernia, Jaundice, Other (See Below) Other Gastrointestinal History: chrohns disease, polyps Genitourinary History: Reports: Renal Calculus Other Genitourinary History: iliostomy CHANNELER History: Reports: Dysfunctional Uterine Bleeding, Fibroids, , Spontaneous Musculoskeletal History: Reports: Back Pain, Chronic, Fracture, Fibromyalgia, Osteoarthritis, Osteoporosis, Other (See Below) Other Musculoskeletal History: bone spurs on feet Neurological History: Reports: Concussion, Headaches, Chronic, Head Trauma, Migraines, Seizure Psychiatric History: Reports: Anxiety, Depression, Panic Attack, PTSD Endocrine/Metabolic History: Reports: Diabetes, Type II, Obesity/BMI 30+, Osteoporosis Other Endocrine/Metabolic History: lupus Hematologic History: Reports: Anemia Oncologic (Cancer) History: Reports: Colon Dermatologic History: Reports: Cellulitis - Infectious Disease History Infectious Disease History: Reports: Chicken Pox - Past Surgical History GI Surgical History: Reports: Appendectomy, Colon, Colonoscopy, Colostomy, EGD, Hernia, Abdominal, Hernia, Inguinal, Hernia Repair/Other, Other (See Below) Female Surgical History: Reports: D&C, Hysterectomy, Other (See Below) Neurological Surgical History: Reports: Lumbar Spine Musculoskeletal Surgical History: Reports: Arthroscopic Knee, Shoulder Surgery, Other (See Below) Oncologic Surgical History: Reports: Other (See Below) Social & Family History - Family History Family Medical History: Unobtainable - Tobacco Use Smoking Status *Q: Current Every Day Smoker Years of Tobacco use: 40 Packs/Tins Daily: 0.5 Used Tobacco, but Quit: No Month/Year Tobacco Last Used: 02/11 Second Hand Smoke Exposure: Yes - Caffeine Use Caffeine Use: Reports: Coffee, Soda - Alcohol Use Days Per Week of Alcohol Use: 0 - Recreational Drug Use Recreational Drug Use: No ED ROS GENERAL - Review of Systems Review Of Systems: See Below Constitutional: Reports: Malaise. Denies: Fever HEENT: Reports: No Symptoms Respiratory: Reports: Shortness of Breath (She does have chronic COPD but no active or current shortness of breath) Cardiovascular: Denies: Chest Pain GI/Abdominal: Reports: Abdominal Pain, Nausea, Vomiting. Denies: Diarrhea : Reports: No Symptoms Musculoskeletal: Reports: Back Pain (Chronic back pain) Neurological: Denies: Headache ED EXAM, GI/ABD - Physical Exam Exam: See Below Exam Limited By: No Limitations General Appearance: Alert, Moderate Distress Eyes: Bilateral: Normal Appearance (No jaundice, normal hydration) Respiratory/Chest: No Respiratory Distress, Lungs Clear Cardiovascular: Regular Rate, Rhythm GI/Abdominal Exam: Normal Bowel Sounds, Tender (Diffusely tender to palpation, no focal tenderness) Course - Vital Signs Last Recorded V/S: Last Vital Signs Temp 97.9 F 07/17/17 11:17 Pulse 51 L 07/17/17 11:17 Resp 14 07/17/17 12:02 BP 201/94 H 07/17/17 11:17 Pulse Ox 96 07/17/17 12:02 - Orders/Labs/Meds Orders: Active Orders 24 hr Category Date Time Status Abdomen 2V AP Flat Upright [CR] Stat Exams 07/17/17 11:41 Taken Meds: Medications Discontinued Medications Generic Name Dose Route Start Last Admin Trade Name Gissel PRN Reason Stop Dose Admin Ketorolac Tromethamine 30 mg 07/17/17 11:20 07/17/17 11:28 Toradol IVPUSH 07/17/17 11:21 30 mg ONETIME ONE Administration Meperidine HCl 100 mg 07/17/17 11:20 07/17/17 11:28 Demerol IVPUSH 100 mg ONETIME PRN Administration Abdominal Pain Meperidine HCl 25 mg 07/17/17 14:37 Demerol IVPUSH ONETIME PRN Abdominal Pain Meperidine HCl 25 mg 07/17/17 14:46 07/17/17 14:47 Demerol IVPUSH 07/17/17 14:47 25 mg ONETIME ONE Administration Ondansetron HCl 8 mg 07/17/17 11:20 07/17/17 11:25 Zofran IVPUSH 07/17/17 11:21 8 mg ONETIME ONE Administration Ondansetron HCl Confirm 07/17/17 11:26 Zofran Administered 07/17/17 11:27 Dose 4 mg .ROUTE .STK-MED ONE Ondansetron HCl 4 mg 07/17/17 14:37 07/17/17 14:43 Zofran IVPUSH 07/17/17 14:38 4 mg ONETIME ONE Administration - Re-Assessments/Exams Free Text/Narrative Re-Assessment/Exam: 07/17/17 12:48 Because of her large evaluation over the past 48 hours including an EGD and her significant workup, I called Dr. Hollis Ward her primary physician and he recommended just treating symptoms with 8 mg of IV Zofran, 100 mg of IV Demerol and 30 mg of IV Toradol. Within 30 minutes of the medication the patient was sleeping soundly. I did do a two-view abdominal x-ray to rule out free air because of the procedure yesterday, this was stable from previous x-rays without acute findings or evidence of obstruction or perforation. 07/17/17 13:57 After the patient awoke she was still having some abdominal discomfort. I discussed the situation with her primary provider and he asked her to continue her regular medications for another 24-48 hours and call if not improving satisfactorily. 07/17/17 14:39 Prior to being discharged the patient asked for a "patient advocate". She insisted she needed more treatment. She was given 4 more milligrams of IV Zofran , 25 mg of IV Demerol and was discharged with 5 additional doses of sublingual Zofran. Departure - Departure Time of Disposition: 15:14 Disposition: Home, Self-Care 01 Condition: Good Clinical Impression: Abdominal pain Qualifiers: Abdominal location: upper abdomen, unspecified Qualified Code(s): R10.10 - Upper abdominal pain, unspecified - Discharge Information Instructions: Abdominal Pain, Adult, [id number] Referrals: Mehrdad Ward Sr, MD [Primary Care Provider] - Forms: ED Department Discharge Care Plan Goals: Rest today, stick with just small amounts of liquids frequently to maintain hydration and continue with your regular medications. Called Dr. Ward if not improving satisfactorily over the next 1-2 days. - My Orders Last 24 Hours: My Active Orders 07/17/17 11:41 Abdomen 2V AP Flat Upright [CR] Stat - Assessment/Plan Last 24 Hours: My Active Orders 07/17/17 11:41 Abdomen 2V AP Flat Upright [CR] Stat
[2017-07-17] MEDS ORDERED: Meperidine PF 25 MG/ML Syringe IVPUSH PRN (14:37)
[2017-07-17] MEDS ORDERED: Meperidine PF 25 MG/ML Syringe IVPUSH ONE (14:46)
--- NOTE | 2017-07-19 09:24 | CR ---
Abdomen 2V AP Flat Upright CLINICAL HISTORY: Abdominal pain FINDINGS: Vision has had the previous abdominal surgery. There is a right abdominal ostomy site. Ther e are some scattered air-filled loops of small bowel. No free air is identified. IMPRESSION: Scattered air-filled loops of small bowel in a nonacute pattern Right abdominal ostomy site
== END 2017-07-17 15:15 | disposition home or self-care (01) ==
LOC: JP.ED 11:00
DX: R10.10 Upper abdominal pain, unspecified (principal); I48.91 Unspecified atrial fibrillation; I25.10 Atherosclerotic heart disease of native coronary artery without angina pectoris; E78.00 Pure hypercholesterolemia, unspecified; I10 Essential (primary) hypertension; I25.2 Old myocardial infarction; E11.9 Type 2 diabetes mellitus without complications; E66.9 Obesity, unspecified; F17.210 Nicotine dependence, cigarettes, uncomplicated; Z88.8 Allergy status to other drugs, medicaments and biological substances; Z88.0 Allergy status to penicillin; Z88.1 Allergy status to other antibiotic agents; Z88.5 Allergy status to narcotic agent; Z79.899 Other long term (current) drug therapy; Z87.442 Personal history of urinary calculi
CPT/HCPCS: 74019; 96374; 96375; 96376; 99283; 99284; J1885; J2175; J2405

== ENCOUNTER 2017-07-22 05:33 | Inpatient (IN) | payer MEDICARE, MEDICAID ==
[~2017-07-22 05:33] MED LIST: Sodium Chloride 0.9% 10 ML Syringe FLUSH PRN
[2017-07-22] MEDS ORDERED: Dextrose 5%-Lactated Ringers 1,000 ML IV SCH (06:20)
[2017-07-22] MEDS ORDERED: Linezolid 600 MG in Premix Bag 1 BAG IV ONE (06:40)
[2017-07-22] MEDS ORDERED: Ropivacaine 35 ML, Dexamethasone 8 MG, EPINEPHrine 0.4 MG, Sodium Chloride 0.9% 42.6 ML NERVRT SCH ×4 (07:30)
[2017-07-22] MEDS ORDERED: Ketamine 500 MG/5 ML MDV IV SCH (07:30)
[2017-07-22] MEDS ORDERED: Naloxone 0.4 MG/ML SDV IV PRN (08:09)
[2017-07-22] MEDS ORDERED: 50% Dextrose in Water 50 ML Syringe IVPUSH PRN (08:10)
[2017-07-22] MEDS ORDERED: Glucagon,Human Recombinant 1 MG Vial IM PRN (08:10)
[2017-07-22] MEDS ORDERED: Glucose Gel 15 GM in 37.5 GM Tube PO PRN (08:10)
[2017-07-22] MEDS ORDERED: Nitroglycerin 0.4 MG Tab.SL SL PRN (08:13)
[2017-07-22] MEDS ORDERED: Melatonin 3 MG Tab PO PRN (08:15)
[2017-07-22] MEDS: HYDROmorphone/Normal Saline 15 MG/30 ML PCA IV PRN (08:24)
[2017-07-22] MEDS ORDERED: Barium Sulfate 98% Powder for Susp 340 GM Bottle PO SCH (08:45)
[2017-07-22] MEDS: Ezetimibe 10 MG Tab PO SCH (12:10)
[2017-07-22] MEDS: Metoprolol Succinate 50 MG Tab.ER PO SCH (12:10)
[2017-07-22] MEDS: Pantoprazole 40 MG Tab.CR PO SCH (12:12)
[2017-07-22] MEDS: Hydroxychloroquine 200 MG Tab PO SCH (12:12)
[2017-07-22] MEDS: Docusate Sodium 100 MG Cap PO SCH ×2 (12:12→21:19)
[2017-07-22] MEDS: Sertraline 50 MG Tab PO SCH (12:12)
[2017-07-22] MEDS: Potassium Chloride 20 MEQ, Lidocaine 1% 2 ML in Sodium Chloride 0.9% 100 ML IV SCH ×4 (14:05→22:21)
--- NOTE | 2017-07-22 15:10 | CR ---
UGI w Small Bowel wo Air CLINICAL HISTORY: Abdominal pain, previous partial colectomy FINDINGS: Patient swallowed thin barium without difficulty. The esophagus had a normal contour. Gastr ic configuration and mucosal pattern is thought to be normal. Duodenal bulb has a normal appearance. The there were 2 duodenal diverticula the larger measures approximately 3 x 4 cm Small bowel follow-through: After the upper GI patient was given additional barium was given. The ser ial flat plates of the abdomen were obtained out to 4 hours. The small bowel configuration is normal. The there was filling of the right colon at 4 hours. The there was no barium within the colostomy ba g at that point. Impression: There are 2 duodenal diverticula Small bowel otherwise have a normal configuration Moderately slow transit through the small bowel Follow-up KUB recommended tomorrow .
--- NOTE | 2017-07-22 15:47 | PCM.CONS ---
H&P History of Present Illness - General Date of Service: 07/22/17 Admit Problem/Dx: Source of Information: Patient, Old Records, RN Notes Reviewed History Limitations: Reports: No Limitations - History of Present Illness Initial Comments - Free Text/Narative: Ms. Clayton is a 61-year-old woman who I been asked to see by Dr. Tobin for further suggestions concerning review current medical management. She had been scheduled for hernia repair today, when seen by Dr. Tobin reported recent history of nausea vomiting and abdominal pain. She has had several previous abdominal surgeries and was hospitalized over the weekend by Dr. Ward for similar symptoms. She does also have a history of Crohn's disease, felt to be currently active. Upper GI x-ray with small bowel follow-through has been obtained and has shown no significant abnormalities or evidence of bowel obstruction. Middle Abdomen Pain Score (Numeric/FACES): 5 - Related Data Allergies/Adverse Reactions: Allergies Allergy/AdvReac Type Severity Reaction Status Date / Time dicyclomine HCl [From Bentyl] Allergy Severe anaphylaxis Verified 07/22/17 06:42 flurbiprofen [From Ansaid] Allergy Severe anaphylaxis, Verified 07/22/17 06:42 tongue swelling. gentamicin [Gentamicin] Allergy Severe anaphylaxis, Verified 07/22/17 06:42 resp. distress vancomycin Allergy Severe anaphylaxis Verified 07/22/17 06:42 amoxicillin [Amoxicillin] Allergy Intermediate generalized Verified 07/22/17 06: 42 rash ciprofloxacin Allergy Intermediate rash and Verified 07/22/17 06:42 swelling clarithromycin [From Biaxin] Allergy Intermediate generalized Verified 07/22/17 06:42 rash erythromycin base Allergy Intermediate Hives Verified 07/22/17 06:42 [Erythromycin Base] penicillin V [Penicillin V] Allergy Intermediate patchy-swollen Verified 06:42 skin pentazocine lactate Allergy Intermediate Hives Verified 07/22/17 06:42 [From Talwin] hyoscyamine sulfate Allergy Unknown Cannot Verified 07/22/17 06:42 [From Levsin] Remember Sulfa (Sulfonamide Allergy Unknown Cannot Verified 07/22/17 06:42 Antibiotics) Remember cyclobenzaprine HCl Allergy Cannot Verified 07/22/17 06:42 [From Flexeril] Remember NSAIDS (Non-Steroidal Allergy Cannot Verified 07/22/17 06:42 Anti-Inflamma Remember ondansetron HCl Allergy Cannot Verified 07/22/17 06:42 [From Zofran (as Remember hydrochloride)] morphine AdvReac Intermediate Vomiting Verified 07/22/17 06:42 cough syrup Allergy Cannot Uncoded 07/22/17 06:42 Remember Home Medications: Home Meds Melatonin 20 mg PO BEDTIME PRN 02/08/14 [History] Ezetimibe [Zetia] 10 mg PO DAILY 12/21/14 [History] Sertraline HCl [Zoloft] 100 mg PO QPM 12/25/14 [History] Metoprolol Succinate 50 mg PO DAILY 02/16/15 [History] SitaGLIPtin [Januvia] 100 mg PO DAILY #30 tab 02/19/15 [Rx] Nitroglycerin [Nitrostat] 0.3 mg SL ASDIRECTED PRN 03/07/15 [History] Hydrocodone/Acetaminophen [Hydrocodon-Acetaminophn 10-325] 1 - 2 tab PO Q6HR PRN 07/28/15 [History] *Rapatha 1 injection IM ASDIRECTED 07/15/17 [History] Docusate Sodium 100 mg PO BID PRN 07/15/17 [History] Hydroxychloroquine Sulfate 200 mg PO DAILY 07/15/17 [History] Pantoprazole Sodium 40 mg PO DAILY 07/15/17 [History] traZODone HCl [Trazodone HCl] 150 - 200 mg PO BEDTIME 07/15/17 [History] Gabapentin [Neurontin] 1,600 mg PO BEDTIME 07/22/17 [History] Past Medical History HEENT History: Reports: Impaired Vision Cardiovascular History: Reports: Afib, Angina, Arrhythmia, Blood Clots/VTE/DVT, CAD, High Cholesterol, Hypertension, ND, Other (See Below) Other Cardiovascular History: DVT cardiac arrest Mitral valve prolapse [place] TransiuminL ANGIOPLASTY Respiratory History: Reports: Asthma, Bronchitis, Recurrent, COPD, Intubation, Previous, Pneumothorax, SOB, Other (See Below) Other Respiratory History: pleursey Gastrointestinal History: Reports: Bowel Obstruction, Chronic Diarrhea, GI Bleed , Hemorrhoids, Hiatal Hernia, Jaundice, Other (See Below) Other Gastrointestinal History: chrohns disease, polyps Genitourinary History: Reports: Renal Calculus Other Genitourinary History: iliostomy 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: Dysfunctional Uterine Bleeding, Fibroids, , Spontaneous Musculoskeletal History: Reports: Back Pain, Chronic, Fracture, Fibromyalgia, Osteoarthritis, Osteoporosis, Other (See Below) Other Musculoskeletal History: bone spurs on feet Neurological History: Reports: Concussion, Headaches, Chronic, Head Trauma, Migraines, Seizure Psychiatric History: Reports: Anxiety, Depression, Panic Attack, PTSD Endocrine/Metabolic History: Reports: Diabetes, Type II, Obesity/BMI 30+, Osteoporosis Other Endocrine/Metabolic History: lupus Hematologic History: Reports: Anemia Immunologic History: Reports: Other (See Below) Other Immunologic History: Lupus Oncologic (Cancer) History: Reports: Colon Dermatologic History: Reports: Cellulitis - Infectious Disease History Infectious Disease History: Reports: Chicken Pox, Shingles - Past Surgical History HEENT Surgical History: Reports: Tonsillectomy GI Surgical History: Reports: Appendectomy, Colon, Colonoscopy, Colostomy, EGD, Hernia, Abdominal, Hernia, Inguinal, Hernia Repair/Other, Other (See Below) Female Surgical History: Reports: D&C, Hysterectomy, Other (See Below) Other Female Surgeries/Procedures: fistula, "tear in my bladder" after procedure Neurological Surgical History: Reports: Lumbar Spine Musculoskeletal Surgical History: Reports: Arthroscopic Knee, Shoulder Surgery, Other (See Below) Other Musculoskeletal Surgeries/Procedures:: Spinal fusion Oncologic Surgical History: Reports: Other (See Below) Other Oncologic Surgeries/Procedures: left colol resection for colon mass Social & Family History - Family History Family Medical History: Unobtainable - Tobacco Use Smoking Status *Q: Current Every Day Smoker Years of Tobacco use: 35 Packs/Tins Daily: 1 Used Tobacco, but Quit: No Month/Year Tobacco Last Used: July Second Hand Smoke Exposure: Yes - Caffeine Use Caffeine Use: Reports: Coffee - Alcohol Use Days Per Week of Alcohol Use: 0 - Recreational Drug Use Recreational Drug Use: No H&P Review of Systems - Review of Systems: Review Of Systems: See Below General: Denies: Fever, Chills Pulmonary: Reports: No Symptoms Cardiovascular: Reports: No Symptoms Gastrointestinal: Reports: Abdominal Pain, Decreased Appetite, Distension, Nausea, Vomiting. Denies: Black Stool, Bloody Stool, Constipation, Diarrhea, Difficulty Swallowing Genitourinary: Reports: No Symptoms Musculoskeletal: Reports: Back Pain Exam - Exam Exam: See Below - Vital Signs Vital Signs: Last Vital Signs Temp 98.1 F 07/22/17 05:51 Pulse 73 07/22/17 12:10 Resp 18 07/22/17 05:51 BP 109/61 07/22/17 12:10 Pulse Ox 93 L 07/22/17 14:25 Weight: 134 lb - Exam General: Alert, Oriented, Cooperative Neck: Supple, Trachea Midline, +2 Carotid Pulse wo Bruit Lungs: Clear to Auscultation, Normal Respiratory Effort Cardiovascular: Regular Rate, Regular Rhythm, Normal S1, Normal S2. No: Systolic Murmur, Diastolic Murmur GI/Abdominal Exam: Soft, No Organomegaly, Tender. No: Distended, Guarding, Rigid, Rebound Extremities: Non-Tender, No Pedal Edema Skin: Warm, Dry, Intact - Patient Data Lab Results Last 24 hrs: Laboratory Results - last 24 hr 07/22/17 07/22/17 07/22/17 Range/Units 06:00 06:00 08:15 WBC 12.2 H (4.5-11.0) K/uL RBC 5.29 (3.30-5.50) M/uL Hgb 16.1 H D (12.0-15.0) g/dL Hct 45.9 (36.0-48.0) % MCV 87 (80-98) fL MCH 30 (27-31) pg MCHC 35 (32-36) % Plt Count 82 L (150-400) K/uL Sodium 136 L (140-148) mmol/L Potassium 3.2 L (3.6-5.2) mmol/L Chloride 94 L (100-108) mmol/L Carbon Dioxide 29 (21-32) mmol/L Anion Gap 16.2 H (5.0-14.0) mmol/L BUN 21 H D (7-18) mg/dL Creatinine 1.0 (0.6-1.0) mg/dL Est Cr Clr Drug Dosing 49.49 mL/min Estimated GFR (MDRD) 57 L (>60) Glucose 168 H (74-106) mg/dL Hemoglobin A1c 6.5 H (4.5-6.2) % Calcium 9.4 (8.5-10.1) mg/dL Phosphorus 3.1 (2.5-4.9) mg/dL Magnesium 2.0 (1.8-2.4) mg/dL Ferritin 372 (8-388) ng/ml Total Bilirubin 0.8 D (0.2-1.0) mg/dL AST 23 (15-37) U/L ALT 27 (12-78) U/L Alkaline Phosphatase 77 (46-116) U/L Total Protein 7.5 (6.4-8.2) g/dL Albumin 4.1 (3.4-5.0) g/dL Globulin 3.4 (2.3-3.5) g/dL Albumin/Globulin Ratio 1.2 (1.2-2.2) Result Diagrams: 07/22/17 06:00 07/22/17 06:00 Consult PN Assessment/Plan Procedures: Procedures AIRWAY INHALATION TREATMENT (02/17/15) ANTITHROMBIN III ACTIVITY (05/04/13) ASSAY OF AMYLASE (02/17/15) ASSAY OF CK (CPK) (10/27/13) ASSAY OF LACTIC ACID (07/30/15) ASSAY OF LIPASE (07/15/17) ASSAY OF MAGNESIUM (02/17/15) ASSAY OF NATRIURETIC PEPTIDE (10/06/13) ASSAY OF PHOSPHORUS (02/17/15) ASSAY OF TROPONIN QUANT (07/30/15) BETA-2 GLYCOPROTEIN ANTIBODY (05/04/13) BLOOD TYPING SEROLOGIC ABO (10/06/13) BLOOD TYPING SEROLOGIC RH(D) (10/06/13) C-REACTIVE PROTEIN (07/28/15) CARCINOEMBRYONIC ANTIGEN (03/23/13) CARDIOLIPIN ANTIBODY EA IG (05/04/13) CARDIOVASCULAR STRESS TEST (03/11/15) CHEST X-RAY 1 VIEW FRONTAL (10/27/13) CHEST X-RAY 2VW FRONTAL&LATL (02/06/14) CLOT FACTOR IX PTC/CHRSTMAS (05/04/13) CLOT INHIBIT PROT C ACTIVITY (05/04/13) CLOT INHIBIT PROT S FREE (05/04/13) COLONOSCOPY AND BIOPSY (02/23/13) COMPLETE CBC AUTOMATED (07/15/17) COMPLETE CBC W/AUTO DIFF WBC (07/15/17) COMPREHEN METABOLIC PANEL (08/06/15) CT ABD & PELV W/CONTRAST (07/15/17) CT ABD & PELVIS W/O CONTRAST (02/17/15) CT ABDOMEN W/O DYE (05/18/13) CULTR BACTERIA EXCEPT BLOOD (04/05/13) CULTURE AEROBIC IDENTIFY (04/05/13) CULTURE OTHR SPECIMN AEROBIC (04/05/13) CULTURE SCREEN ONLY (02/17/15) ECHO EXAM OF ABDOMEN (07/19/17) EGD BIOPSY SINGLE/MULTIPLE (02/17/15) ELECTROCARDIOGRAM TRACING (10/27/13) EMERGENCY DEPT VISIT (07/17/17) EMERGENCY DEPT VISIT (07/17/17) EMERGENCY DEPT VISIT (07/15/17) EMERGENCY DEPT VISIT (08/06/15) EMERGENCY DEPT VISIT (07/28/15) EMERGENCY DEPT VISIT (02/17/15) EMERGENCY DEPT VISIT (02/17/15) EMERGENCY DEPT VISIT (05/29/14) EMERGENCY DEPT VISIT (05/29/14) EMERGENCY DEPT VISIT (05/09/14) EMERGENCY DEPT VISIT (07/09/13) EMERGENCY DEPT VISIT (07/09/13) EMERGENCY DEPT VISIT (06/06/13) EMERGENCY DEPT VISIT (06/06/13) EMERGENCY DEPT VISIT (05/18/13) EMERGENCY DEPT VISIT (05/17/13) EMERGENCY DEPT VISIT (04/05/13) EXTREMITY STUDY (12/21/14) F2 GENE (05/04/13) F5 GENE (05/04/13) FACTOR INHIBITOR TEST (05/04/13) FIBRIN DEGRADATION QUANT (10/27/13) GLUCOSE BLOOD TEST (02/17/15) GLYCOSYLATED HEMOGLOBIN TEST (02/17/15) HT MUSCLE IMAGE SPECT MULT (03/11/15) HYDRATE IV INFUSION ADD-ON (07/15/17) IIV4 VACC NO PRSV 0.5 ML IM (02/12/14) INJECTION FOR BLADDER X-RAY (10/25/13) LIPID PANEL (05/18/13) MEASURE BLOOD OXYGEN LEVEL (02/17/15) METABOLIC PANEL TOTAL CA (07/15/17) MICROBE SUSCEPTIBLE ANNA (06/21/15) PPSV23 VACC 2 YRS+ SUBQ/IM (07/09/13) PROTHROMBIN TEST (05/04/13) PROTHROMBIN TIME (10/06/13) RBC ANTIBODY SCREEN (10/06/13) REAGENT STRIP/BLOOD GLUCOSE (02/12/14) ROUTINE VENIPUNCTURE (07/15/17) SHANTE VIPER VENOM DILUTED (05/04/13) SMEAR GRAM STAIN (04/05/13) THER/PROPH/DIAG INJ IV PUSH (07/17/17) THER/PROPH/DIAG INJ SC/IM (02/17/15) THER/PROPH/DIAG IV INF ADDON (07/09/13) THER/PROPH/DIAG IV INF INIT (05/09/14) THROMBIN TIME PLASMA (05/04/13) THROMBOPLASTIN TIME PARTIAL (05/04/13) THROMBOPLASTIN TIME PARTIAL (05/04/13) TISSUE EXAM BY PATHOLOGIST (12/25/14) TISSUE EXAM BY PATHOLOGIST (10/06/13) TISSUE EXAM BY PATHOLOGIST (04/05/13) TX/PRO/DX INJ NEW DRUG ADDON (07/17/17) TX/PRO/DX INJ SAME DRUG TREE MARKER (07/17/17) URINALYSIS AUTO W/SCOPE (07/15/17) URINE BACTERIA CULTURE (06/21/15) URINE CULTURE/COLONY COUNT (08/06/15) US URINE CAPACITY MEASURE (07/09/13) X-RAY EXAM ABDOMEN 1 VIEW (07/15/17) X-RAY EXAM ABDOMEN 2 VIEWS (07/17/17) X-RAY EXAM OF ABDOMEN (10/27/13) X-RAY EXAM SERIES ABDOMEN (07/28/15) Problem List Initiated/Reviewed/Updated: Yes Plan: ASSESSMENT AND RECOMMENDATIONS ABDOMINAL PAIN ASSOCIATED WITH NAUSEA AND VOMITING-symptoms present over the past week, upper GI x-ray with small bowel follow-through shows no evidence of significant obstruction. No evidence of active Crohn's disease. -Ongoing care and management per Dr. Tobin HISTORY OF CORONARY ARTERY DISEASE-she's not had regular follow-up with cardiology, per her report she did have cardiac angiogram 4-5 years ago, did not require intervention at that time. TYPE 2 DIABETES MELLITUS-glucose control thus far during hospitalization appears to be good. -Continue genu via as ordered -Continue low-dose sliding scale NovoLog -Continue 4 times a day glucometers COPD-denies current symptoms are exacerbation -Nebulized albuterol as needed -Encourage nicotinic cessation Requesting Provider: AJITH Date Consult Requested: 07/22/17 Reason for Consult: Medical management Patient History Reviewed: Yes
[2017-07-22] MEDS: Dextrose 5%-Lactated Ringers 1,000 ML IV SCH (16:01)
[2017-07-22] MEDS ORDERED: Ondansetron 4 MG/2 ML SDV IVPUSH PRN (17:42)
[2017-07-22] MEDS: Gabapentin 400 MG Cap PO SCH (21:18)
[2017-07-22] MEDS: traZODone 50 MG Tab PO SCH (21:19)
[2017-07-23] MEDS: Dextrose 5%-Lactated Ringers 1,000 ML IV SCH ×2 (00:07→08:22)
[2017-07-23] MEDS: Pantoprazole 40 MG Tab.CR PO SCH (08:12)
[2017-07-23] MEDS: Metoprolol Succinate 50 MG Tab.ER PO SCH (08:13)
[2017-07-23] MEDS: Sertraline 50 MG Tab PO SCH ×2 (08:13→08:16)
[2017-07-23] MEDS: Docusate Sodium 100 MG Cap PO SCH ×2 (08:14→20:44)
[2017-07-23] MEDS: Ezetimibe 10 MG Tab PO SCH (08:14)
[2017-07-23] MEDS: Hydroxychloroquine 200 MG Tab PO SCH ×2 (08:14→08:16)
--- NOTE | 2017-07-23 09:55 | PCM.PN ---
- General Info Date of Service: 07/23/17 Admission Dx/Problem (Free Text): recurrent incisional hernia Subjective Update: Patient reports that she is uncomfortable/having abdominal pain. Most uncomfortable at mid abdomen. She states that she has been up ambulating and tolerating her diet. Functional Status: Reports: Tolerating Diet, Ambulating, Urinating - Review of Systems General: Reports: No Symptoms HEENT: Reports: No Symptoms Pulmonary: Reports: No Symptoms Cardiovascular: Reports: No Symptoms Gastrointestinal: Reports: Abdominal Pain (throughout, worst at incisional hernia area), Nausea Genitourinary: Reports: No Symptoms Musculoskeletal: Reports: Back Pain (due to falls at home) Neurological: Reports: No Symptoms Psychiatric: Reports: No Symptoms - Patient Data Vitals - Most Recent: Last Vital Signs Temp 36.7 C 07/23/17 08:38 Pulse 74 07/23/17 08:38 Resp 18 07/23/17 08:38 BP 126/59 L 07/23/17 08:38 Pulse Ox 93 L 07/23/17 08:38 Weight - Most Recent: 60.781 kg I&O - Last 24 Hours: Intake & Output 07/22/17 07/23/17 07/23/17 22:59 06:59 14:59 Intake Total 1024 1360 Balance 1024 1360 Lab Results Last 24 Hours: Laboratory Results - last 24 hr 07/23/17 Range/Units 04:34 Sodium 141 (140-148) mmol/L Potassium 3.3 L (3.6-5.2) mmol/L Chloride 103 (100-108) mmol/L Carbon Dioxide 31 (21-32) mmol/L Anion Gap 10.3 (5.0-14.0) mmol/L BUN 12 (7-18) mg/dL Creatinine 0.6 (0.6-1.0) mg/dL Est Cr Clr Drug Dosing 82.48 mL/min Estimated GFR (MDRD) > 60 (>60) Glucose 141 H (74-106) mg/dL Calcium 8.1 L (8.5-10.1) mg/dL Phosphorus 3.6 (2.5-4.9) mg/dL Magnesium 1.6 L (1.8-2.4) mg/dL Med Orders - Current: Current Medications Alogliptin Benzoate (Alogliptin) 25 mg PO DAILY MARYBETH Last Admin: 07/23/17 08:13 Dose: 25 mg Dextrose (Glutose 15) 15 gm PO ASDIRECTED PRN PRN Reason: HYPOGLYCEMIA Dextrose/Water (Dextrose 50% In Water) 50 ml IVPUSH ASDIRECTED PRN PRN Reason: HYPOGLYCEMIA Docusate Sodium (Colace) 100 mg PO BID [facility] Last Admin: 07/23/17 08:14 Dose: 100 mg Ezetimibe (Zetia) 10 mg PO DAILY [facility] Last Admin: 07/23/17 08:14 Dose: 10 mg Gabapentin (Neurontin) 1,200 mg PO BEDTIME [facility] Last Admin: 07/22/17 21:18 Dose: 1,200 mg Glucagon (Glucagen) 1 mg IM ASDIRECTED PRN PRN Reason: HYPOGLYCEMIA Hydromorphone HCl (Dilaudid Cream Beater 15 Mg In Ns 30 Ml) 0 mg IV ASDIRECTED PRN; Protocol PRN Reason: BUILDINGS PAINTER PAIN CONTROL Last Admin: 07/22/17 08:24 Dose: 15 mg Hydroxychloroquine Sulfate (Plaquenil) 200 mg PO DAILY [facility] Last Admin: 07/23/17 08:16 Dose: Not Given Dextrose/Lactated Ringer's (Dextrose 5%-Lactated Ringers) 1,000 mls @ 125 mls/ hr IV ASDIRECTED [facility] Last Admin: 07/23/17 08:22 Dose: 125 mls/hr Insulin Aspart (Novolog) 0 unit SUBCUT QID PRN; Protocol PRN Reason: LOW CORRECTIONAL DOSE Melatonin (Melatonin) 21 mg PO BEDTIME PRN PRN Reason: SLEEP Metoprolol Succinate (Toprol Xl) 50 mg PO DAILY [facility] Last Admin: 07/23/17 08:13 Dose: 50 mg Naloxone HCl (Narcan) 0.1 mg IV ASDIRECTED PRN PRN Reason: decreased respiratory rate Nitroglycerin (Nitrostat) 0.4 mg SL ASDIRECTED PRN PRN Reason: Chest Pain Ondansetron HCl (Zofran) 4 mg IVPUSH Q4H PRN PRN Reason: Nausea/Vomiting Last Admin: 07/22/17 18:20 Dose: 4 mg Pantoprazole Sodium (Protonix) 40 mg PO ACBREAKFAST [facility] Last Admin: 07/23/17 08:12 Dose: 40 mg Sertraline HCl (Zoloft) 100 mg PO DAILY [facility] Last Admin: 07/23/17 08:16 Dose: Not Given Trazodone HCl (Trazodone) 100 mg PO BEDTIME [facility] Last Admin: 07/22/17 21:19 Dose: 100 mg Discontinued Medications Barium Sulfate (E-Z-Hd) 680 gm PO . DIRECTED [facility] Stop: 07/22/17 09:30 Last Admin: 07/22/17 10:00 Dose: 340 gm Dextrose/Lactated Ringer's (Dextrose 5%-Lactated Ringers) 1,000 mls @ 100 mls/ hr IV ASDIRECTED [facility] Last Admin: 07/22/17 07:16 Dose: 100 mls/hr Potassium Chloride 20 meq/Lidocaine HCl 2 ml/ Sodium Chloride 112 mls @ 56 mls/ hr IV Q2H [facility] Stop: 07/22/17 19:59 Last Admin: 07/22/17 22:21 Dose: 56 mls/hr - Exam General: Alert, Oriented, Cooperative, No Acute Distress HEENT: Pupils Equal, Pupils Reactive Neck: Supple, Trachea Midline Lungs: Clear to Auscultation, Normal Respiratory Effort Cardiovascular: Regular Rate, Regular Rhythm GI/Abdominal Exam: Normal Bowel Sounds, Soft, No Distention, Tender (throughout entire abdomen with palpation), Other (ileostomy bag with minimal output) (Female) Exam: Deferred Back Exam: Normal Inspection Extremities: Normal Inspection, No Pedal Edema Skin: Warm, Dry, Intact Wound/Incisions: Other (pre-surgical) Neurological: No New Focal Deficit Psy/Mental Status: Alert, Normal Affect, Normal Mood - Problem List & Annotations (1) Abdominal pain SNOMED Code(s): 36974645 Code(s): R10.9 - UNSPECIFIED ABDOMINAL PAIN Status: Acute Current Visit: No Qualifiers: Abdominal location: upper abdomen, unspecified Qualified Code(s): R10.10 - Upper abdominal pain, unspecified - Problem List Review Problem List Initiated/Reviewed/Updated: Yes - Assessment Assessment:: -Abdominal Pain -Recurrent incisional hernia - Plan Plan:: -Advance diet to regular today. -Continue BUILDINGS PAINTER for pain control. -
[2017-07-23] MEDS ORDERED: Dextrose 5%-Lactated Ringers 1,000 ML IV SCH (10:15)
--- NOTE | 2017-07-23 10:43 | CR ---
Abdomen 1V Flat CLINICAL HISTORY: Previous small bowel follow-through FINDINGS: The bowel gas pattern is nonobstructive. No abnormal masses are noted. There is barium in t he right colon as well as in the colostomy bag in the right abdomen. The small bowel has emptied IMPRESSION: Please transit of contrast through the small bowel
[2017-07-23] MEDS: HYDROmorphone/Normal Saline 15 MG/30 ML PCA IV PRN (11:55)
[2017-07-23] MEDS: fentaNYL 25 MCG/HR Transdermal Patch TRDERM SCH (19:15)
[2017-07-23] MEDS: Acetaminophen/HYDROcodone 325-10 MG Tab PO PRN ×2 (20:43→22:10)
[2017-07-23] MEDS: traZODone 50 MG Tab PO SCH (20:44)
[2017-07-23] MEDS: Gabapentin 400 MG Cap PO SCH (20:44)
[2017-07-24] MEDS: Acetaminophen/HYDROcodone 325-10 MG Tab PO PRN ×3 (07:49→21:00)
[2017-07-24] MEDS: Pantoprazole 40 MG Tab.CR PO SCH (07:52)
[2017-07-24] MEDS ORDERED: CHECK FENTANYL PATCH SCH (09:00)
[2017-07-24] MEDS: Docusate Sodium 100 MG Cap PO SCH ×2 (09:01→21:02)
[2017-07-24] MEDS: Hydroxychloroquine 200 MG Tab PO SCH (09:01)
[2017-07-24] MEDS: CHECK FENTANYL PATCH SCH ×2 (09:01→21:14)
[2017-07-24] MEDS: Sertraline 50 MG Tab PO SCH (09:02)
[2017-07-24] MEDS: Ezetimibe 10 MG Tab PO SCH (09:02)
[2017-07-24] MEDS: Metoprolol Succinate 50 MG Tab.ER PO SCH (09:03)
[2017-07-24] MEDS: Insulin Aspart 100 Units/ML 3 ML Pen SUBCUT PRN ×2 (11:50→21:09)
[2017-07-24] MEDS: traMADol 50 MG Tab PO PRN (12:35)
[2017-07-24] MEDS: Gabapentin 400 MG Cap PO SCH (21:02)
[2017-07-24] MEDS: traZODone 50 MG Tab PO SCH (21:03)
[2017-07-25] MEDS: Acetaminophen/HYDROcodone 325-10 MG Tab PO PRN ×3 (07:44→19:09)
[2017-07-25] MEDS ORDERED: Sodium Chloride 0.9% 10 ML Syringe FLUSH PRN (07:54)
[2017-07-25] MEDS: Pantoprazole 40 MG Tab.CR PO SCH (08:20)
[2017-07-25] MEDS: Docusate Sodium 100 MG Cap PO SCH ×2 (08:20→20:55)
[2017-07-25] MEDS: Metoprolol Succinate 50 MG Tab.ER PO SCH (08:22)
[2017-07-25] MEDS: Hydroxychloroquine 200 MG Tab PO SCH (08:22)
[2017-07-25] MEDS: Ezetimibe 10 MG Tab PO SCH (08:23)
[2017-07-25] MEDS: Sertraline 50 MG Tab PO SCH (08:24)
[2017-07-25] MEDS: CHECK FENTANYL PATCH SCH ×2 (08:25→20:59)
[2017-07-25] MEDS: Potassium Chloride 20 MEQ Tab.ER PO SCH ×3 (09:24→16:36)
[2017-07-25] MEDS: Insulin Aspart 100 Units/ML 3 ML Pen SUBCUT PRN (11:40)
[2017-07-25] MEDS: Gabapentin 400 MG Cap PO SCH (20:55)
[2017-07-25] MEDS: traZODone 50 MG Tab PO SCH (20:55)
[2017-07-26] MEDS: Acetaminophen/HYDROcodone 325-10 MG Tab PO PRN (01:27)
[2017-07-26] MEDS: HYDROmorphone/Normal Saline 15 MG/30 ML PCA IV PRN (05:58)
[2017-07-26] MEDS ORDERED: Dextrose 5%-Lactated Ringers 1,000 ML IV SCH (06:00)
[2017-07-26] MEDS ORDERED: Naloxone 0.4 MG/ML SDV IV PRN (06:00)
[2017-07-26] MEDS ORDERED: Propofol 200 MG/20 ML SDV ONE (07:09)
[2017-07-26] MEDS ORDERED: Dexamethasone 4 MG/ML SDV ONE (07:09)
[2017-07-26] MEDS ORDERED: fentaNYL 250 MCG/5 ML SDV ONE ×2 (07:09→10:13)
[2017-07-26] MEDS ORDERED: Neostigmine Methylsulfate 1 MG/ML 5 ML Syringe ONE (07:09)
[2017-07-26] MEDS ORDERED: Glycopyrrolate 0.2 MG/ML 5 ML MDV ONE (07:09)
[2017-07-26] MEDS ORDERED: Ondansetron 4 MG/2 ML SDV ONE (07:09)
[2017-07-26] MEDS ORDERED: Rocuronium 50 MG/5 ML Vial ONE (07:09)
[2017-07-26] MEDS ORDERED: Metoprolol Succinate 50 MG Tab.ER PO ONE (08:00)
[2017-07-26] MEDS ORDERED: Clindamycin Phosphate 900 MG in Sodium Chloride 0.9% 100 ML IV ONE (08:30)
--- NOTE | 2017-07-26 09:05 | PN ---
DATE OF SERVICE: 07/24/2017 The patient has been somewhat confused and agitated at night. Otherwise, she has been stable. We will leave the IV out at this point, due to nighttime confusion. We will continue to feed the patient today and plan repair of the incisional hernia on Wednesday. Yves Tobin MD /[id number]
[2017-07-26] MEDS ORDERED: Meropenem 500 MG SDV ONE (09:22)
[2017-07-26] MEDS ORDERED: Ropivacaine 30 ML, Dexamethasone 8 MG, EPINEPHrine 0.4 MG, Sodium Chloride 0.9% 47.6 ML NERVRT SCH ×4 (09:30)
[2017-07-26] MEDS ORDERED: Ketamine 500 MG/5 ML MDV IV SCH (09:30)
[2017-07-26] MEDS: Pantoprazole 40 MG Tab.CR PO SCH (09:33)
[2017-07-26] MEDS ORDERED: Linezolid 200 MG/100 ML Bag IRR ONE (10:35)
[2017-07-26] MEDS ORDERED: Cyclobenzaprine 10 MG Tab PO PRN (11:26)
[2017-07-26] MEDS ORDERED: hydrOXYzine HCl 100 MG/2 ML SDV IM PRN (11:26)
[2017-07-26] MEDS: Magnesium Sulfate/Water 2 GM in Premix Bag 1 BAG IV SCH ×2 (12:09→19:00)
[2017-07-26] MEDS: Insulin Aspart 100 Units/ML 3 ML Pen SUBCUT PRN ×3 (12:14→21:00)
[2017-07-26] MEDS: Hydroxychloroquine 200 MG Tab PO SCH (12:18)
[2017-07-26] MEDS: Sertraline 50 MG Tab PO SCH (12:19)
[2017-07-26] MEDS: CHECK FENTANYL PATCH SCH ×2 (12:20→21:00)
[2017-07-26] MEDS: Docusate Sodium 100 MG Cap PO SCH ×2 (12:20→21:00)
[2017-07-26] MEDS: Ezetimibe 10 MG Tab PO SCH (12:20)
[2017-07-26] MEDS: Potassium Phosphates 15 MMOLE in Sodium Chloride 0.9% 250 ML IV SCH (15:07)
[2017-07-26] MEDS: fentaNYL 25 MCG/HR Transdermal Patch TRDERM SCH (19:00)
[2017-07-26] MEDS: traMADol 50 MG Tab PO PRN (20:40)
[2017-07-26] MEDS: traZODone 50 MG Tab PO SCH (21:00)
[2017-07-26] MEDS: Gabapentin 400 MG Cap PO SCH (21:00)
[2017-07-27] MEDS: Magnesium Sulfate/Water 2 GM in Premix Bag 1 BAG IV SCH ×5 (00:01→23:23)
[2017-07-27] MEDS: HYDROmorphone/Normal Saline 15 MG/30 ML PCA IV PRN ×2 (00:24→20:51)
[2017-07-27] MEDS ORDERED: Dextrose 5%-Lactated Ringers 1,000 ML IV SCH (07:22)
[2017-07-27] MEDS: Pantoprazole 40 MG Tab.CR PO SCH (08:45)
[2017-07-27] MEDS: CHECK FENTANYL PATCH SCH ×2 (08:46→20:18)
[2017-07-27] MEDS: Hydroxychloroquine 200 MG Tab PO SCH (08:46)
[2017-07-27] MEDS: Docusate Sodium 100 MG Cap PO SCH ×2 (08:46→20:18)
[2017-07-27] MEDS: Ezetimibe 10 MG Tab PO SCH (08:47)
[2017-07-27] MEDS: Metoprolol Succinate 50 MG Tab.ER PO SCH (08:47)
[2017-07-27] MEDS: Sertraline 50 MG Tab PO SCH (08:47)
[2017-07-27] MEDS: Insulin Aspart 100 Units/ML 3 ML Pen SUBCUT PRN ×3 (09:30→21:54)
--- NOTE | 2017-07-27 09:56 | PN ---
DATE OF SERVICE: 07/27/2017 SUBJECTIVE: Audrey's pain is controlled. She has been up ambulating. Vital signs have been stable. Oral intake 1240. Urine output is 1070. She has had 100 mL out of her ostomy in the past 24 hours. REVIEW OF SYSTEMS: Remainder of review of systems negative for any pertinent positives and negatives. OBJECTIVE: GENERAL: Audrey Clayton is a 61-year-old female, alert, orientated, ambulating well. VITAL SIGNS: TPR is 97.4, 77, 18, blood pressure 139/53. HEENT: Negative. NECK: Supple. HEART: Regular rate and rhythm. LUNGS: Clear. ABDOMEN: Dressings dry and intact. Abdominal binder is on. Colostomy intact. EXTREMITIES: Without peripheral edema. ASSESSMENT: Open repair of recurrent incisional hernia. PLAN: 1. Decrease IV rate to 40 mL per hour. 2. Continue BRANCH DIRECTOR for pain control. 3. We will evaluate p.r.n. or in a.m. Tamera Holm PA-C /[id number]
[2017-07-27] MEDS: Potassium Phosphates 15 MMOLE in Sodium Chloride 0.9% 250 ML IV SCH (10:08)
[2017-07-27] MEDS: Calcium Carbonate 500 MG Tab.Chew PO PRN ×2 (10:09→21:56)
--- NOTE | 2017-07-27 10:25 | PN ---
DATE OF SERVICE: 07/25/2017 SUBJECTIVE: The patient has been afebrile with stable vital signs. No major problems were noted overnight. Her emotional status appears to be settling down somewhat. She also still complains of some discomfort in the area around the recurrent hernia in the upper abdomen. PLAN: The plan will be to proceed with repair of that tomorrow. We will start an IV in the morning, and preoperative antibiotics will be given. Potassium is marginally low, and we will give her some KCl orally today and recheck that in the morning and plan for surgical intervention tomorrow. Yves Tobin MD /[id number]
[2017-07-27] MEDS: Gabapentin 400 MG Cap PO SCH (20:18)
[2017-07-27] MEDS: traZODone 50 MG Tab PO SCH (20:18)
[2017-07-27] MEDS ORDERED: Melatonin 3 MG Tab PO SCH (21:00)
[2017-07-28] MEDS: Magnesium Sulfate/Water 2 GM in Premix Bag 1 BAG IV SCH (06:24)
[2017-07-28] MEDS ORDERED: Acetaminophen/HYDROcodone 325-5 MG Tab PO PRN (07:39)
[2017-07-28] MEDS: Ezetimibe 10 MG Tab PO SCH (08:31)
[2017-07-28] MEDS: Acetaminophen/HYDROcodone 325-10 MG Tab PO PRN ×2 (08:31→13:26)
[2017-07-28] MEDS: Metoprolol Succinate 50 MG Tab.ER PO SCH (08:32)
[2017-07-28] MEDS: Hydroxychloroquine 200 MG Tab PO SCH (08:32)
[2017-07-28] MEDS: Pantoprazole 40 MG Tab.CR PO SCH (08:33)
[2017-07-28] MEDS: Docusate Sodium 100 MG Cap PO SCH (08:33)
[2017-07-28] MEDS: Sertraline 50 MG Tab PO SCH (08:33)
[2017-07-28] MEDS: CHECK FENTANYL PATCH SCH (08:34)
[2017-07-28] MEDS ORDERED: Magnesium Hydroxide 400 MG/5 ML Susp 30 ML Cup PO SCH (09:00)
[2017-07-28 10:55] VITALS: BP 131/57
--- NOTE | 2017-07-28 16:52 | PN ---
DATE OF SERVICE: 07/28/2017 SUBJECTIVE: Audrey reports her pain is controlled. She has been up, ambulating. She does report peripheral edema. She is passing some flatus into her ileostomy, has had no stool. REVIEW OF SYSTEMS: Remainder of review of systems is negative for any pertinent positives and negatives. OBJECTIVE: GENERAL: Audrey Clayton is a 61-year-old female. She is alert and orientated. VITAL SIGNS: TPR 98.2, 68, 18, blood pressure 131/57. HEENT: Negative. NECK: Supple. HEART: Regular rate and rhythm. LUNGS: Clear. ABDOMEN: Soft, nontender. There is quite a bit of gas in the ileostomy bag. EXTREMITIES: Reveal 1+ peripheral edema. ASSESSMENT: Open repair of recurrent incisional hernia, 07/23/2017. PLAN: 1. DC DAIRY PRODUCTS MAKER and continuous pulse ox. 2. [place] 5/325 mg 1 to 2 every 4 hours p.r.n. pain. 3. Dulcolax 2 tabs b.i.d. 4. Knee-high JOHN stockings. 5. We will evaluate p.r.n. or in a.m. Tamera Holm PA-C /[id number]
--- NOTE | 2017-07-29 21:15 | DISCH ---
FINAL DIAGNOSES: 1. Abdominal pain associated with recurrent incarcerated incisional hernia. 2. Deformed xiphoid process. 3. Low serum magnesium. 4. History of Crohn disease, status post total abdominal colectomy with ileostomy. 5. Type 2 diabetes mellitus. OPERATIVE PROCEDURES: This was done on 07/26/2017, would be open repair of recurrent incarcerated incisional hernia with mesh, with partial xiphoid cartilage excision. HOSPITAL COURSE: In summary, this is a 61-year-old presenting with progressively worsening abdominal pain. She was admitted initially with a workup including a CT scan of the abdomen and pelvis, which did not show any acute major intra-abdominal problems. Eventually, it became clear that her primary problem was that of a painful and recurrent incarcerated hernia located in the epigastric area. On 07/26/2017, this was repaired with a mesh. During the course of the dissection, the patient was noted to have quite a bit of deformity at the end of the xiphoid cartilage with an anterior angulation, which would likely result in quite a bit of chronic pain. This was therefore excised. Postoperatively, the patient progressed satisfactorily to moving her bowels and will be discharged home. DISCHARGE MEDICATIONS: She will continue her usual home medications. Additional 50 of [place] 10/325 are written. FOLLOWUP: To follow up with Dr. Tobin in [facility] on 08/04/2017.
--- NOTE | 2017-07-31 20:20 | OR ---
DATE OF PROCEDURE: 07/26/2017 PREOPERATIVE DIAGNOSIS: Recurrent incarcerated incisional hernia. POSTOPERATIVE DIAGNOSIS: 1. Recurrent incarcerated incisional hernia. 2. Deformed tip of xiphoid cartilage. OPERATIVE PROCEDURE: 1. Open repair of recurrent incarcerated incisional hernia with mesh ([id number]). 2. Partial removal of the xiphoid cartilage ([id number]). ANESTHESIA: General. INDICATION FOR PROCEDURE: The patient presents with a painful recurrent hernia located above the previously placed mesh in the epigastrium. Plan is to proceed with open repair of this with mesh. Potential risks including bleeding, infection, recurrence of the hernia, problems with mesh becoming infected and injury to underlying viscera and such were all reviewed, and the patient wishes to proceed. DETAILS OF PROCEDURE: The patient was taken to the operating room and placed in a supine position. After general endotracheal anesthesia was induced, bilateral transversus abdominis plane blocks were placed using ultrasound guidance into the subcostal region bilaterally using standard solution. Following this, the abdomen had been prepped and draped, and an upper midline incision was reused and this was carried down through the skin and subcutaneous tissue down the level of the previously placed mesh. It was obvious there was recurrence of the hernia, which contained some incarcerated omentum and preperitoneal fat. This was gradually dissected free from the surrounding soft tissues and then placed back into the abdomen. During the course of dissection, the patient was noted to have a quite deformed peritoneal xiphoid cartilage at this point quite a bit anteriorly and was felt to likely be quite symptomatic postoperatively. Given this, this was then divided down to the point that the level was flush with the surrounding costochondritis. Prolene mesh was then selected and cut such that it would fit over the defect with a significant amount of overlap. This was then sutured to the underside of the previously placed mesh with horizontal sutures of 0 Vicryl stitch on each side underneath the fascia and finally in the area underlying the xiphoid process. Once this was completed, the area was irrigated with antibiotic-containing saline solution. The peritoneal fascia that was overlying was then closed with a running #1 Vicryl stitch, subcutaneous tissue with 4-0 Vicryl stitch and the skin with dodie. Dressing was applied. The patient was taken to the recovery room in satisfactory condition. Yves Tobin MD /[id number]
== END 2017-07-28 16:20 | disposition home or self-care (01) | DRG 354 ==
LOC: JP.MS 05:33 → JP.SDS 05:34 → JP.2SS 07:35 → EDSTATUS 09:00 → JP.2SS 07-27 20:40
PROVIDERS: ADMIT Surgery; ATTEND Surgery
PROC: 0WUF0JZ Supplement Abdominal Wall with Synthetic Substitute, Open Approach (ICD-10-PCS; principal; 2017-07-26)
PROC: 0WB80ZX Excision of Chest Wall, Open Approach, Diagnostic (ICD-10-PCS; 2017-07-26)
DX: K43.0 Incisional hernia with obstruction, without gangrene (principal); K50.90 Crohn's disease, unspecified, without complications; M94.8X8 Other specified disorders of cartilage, other site; E87.6 Hypokalemia; I10 Essential (primary) hypertension; E11.9 Type 2 diabetes mellitus without complications; J44.9 Chronic obstructive pulmonary disease, unspecified; F17.210 Nicotine dependence, cigarettes, uncomplicated; M32.9 Systemic lupus erythematosus, unspecified; I25.10 Atherosclerotic heart disease of native coronary artery without angina pectoris; M54.9 Dorsalgia, unspecified; G89.29 Other chronic pain; M19.90 Unspecified osteoarthritis, unspecified site; Z85.038 Personal history of other malignant neoplasm of large intestine; Z79.891 Long term (current) use of opiate analgesic; Z93.2 Ileostomy status; F32.9 Major depressive disorder, single episode, unspecified; F41.9 Anxiety disorder, unspecified; E78.00 Pure hypercholesterolemia, unspecified; I25.2 Old myocardial infarction; Z86.718 Personal history of other venous thrombosis and embolism; H54.7 Unspecified visual loss; Z86.74 Personal history of sudden cardiac arrest; Z88.1 Allergy status to other antibiotic agents; Z88.0 Allergy status to penicillin; Z88.2 Allergy status to sulfonamides; Z88.8 Allergy status to other drugs, medicaments and biological substances; Z79.84 Long term (current) use of oral hypoglycemic drugs
CPT/HCPCS: 36415; 74018; 74018-26; 74245; 74245-26; 80048; 80053; 82728; 82962; 83036; 83735; 84100; 85027; 88302; 88304; 88311; 94667; 94762; A9270-GY; C1781; J0171; J1100; J1170; J2020; J2185; J2405; J2704; J2710; J2795; J3010; J3475; J3480; J3490; J7030; J7042; J7050; S0077

== ENCOUNTER → 2018-08-03 | Outpatient (CLI) | payer MEDICARE, MEDICAID ==
[2018-08-03 09:43] VITALS: BP 114/84; PULSE 80
[2018-08-03] MEDS: Aminophylline 250 MG/10 ML SDV IVPUSH ONE (10:38)
--- NOTE | 2018-08-03 14:37 | CRLNM ---
MYOCARDIAL PERFUSION SCAN 08/03/2018 CLINICAL HISTORY: 62-year-old female. Angina pectoris. Type 2 diabetes. COPD. Hyperlipidemia. Hypertension. 165 pounds. TECHNIQUE: (Resting SPECT and stress gated SPECT with wall motion and ejection fraction, both in supine position) Stress: Pharmacologic - Lexiscan (0.4 mg) (IV) Dose (Stress/Rest): 28.8 mCi/10.0 mCi Tc-99m Tetrofosmin (IV) Comparison: 03/11/2015 (report) FINDINGS: There is good uptake of activity by the left ventricle. No left ventricular enlargement is noted. There is mild soft tissue attenuation. There is a small area of mild reversibility in the base and mid inferior wall. This is consistent with mild ischemia. No other significant fixed or reversible defects are identified. The gated images demonstrate a normal left ventricular ejection fraction of approximately 65 percent. No regional wall motion abnormalities are identified. Compared to the report of the 03/11/2015 study, the current small area of mild ischemia in the base and mid inferior wall is new. IMPRESSION: 1.There is a small area of mild ischemia in the base and mid inferior wall. 2.Normal left ventricular ejection fraction of approximately 65 percent. SHUBHAM WALTON M.D. Transcribed: 2:31 p.m. [email or web address] PT/Dictated by: Shubham Walton MD @ 08/03/2018 2:25:00 PM (Electronically Signed)
--- NOTE | 2018-08-04 08:55 | STRESS ---
DATE OF SERVICE: 08/03/2018 INDICATION: Audrey is a 62-year-old female, who comes in for a Lexiscan stress test. The risks and benefits were explained for her to have the stress test. She has been having angina pains, responsive to nitroglycerin, taking several nitroglycerin a day often, increased with activity. She has a very strong family history of atherosclerotic heart disease as well. TECHNIQUE: The standard protocol was followed for Lexiscan. 0.5 mg in 5 mL was given IV push followed by saline flush, followed by [facility] nuclear medicine. The standard protocol was followed. The electrocardiogram showed no significant ST-segment or T-wave changes. The standing and hyperventilation electrocardiogram showed no changes as well. The Lexiscan was given, followed by push, followed by the Cardiolite. The patient was monitored throughout the entire period. She did have flushing in her face and feeling weak and ashen, and at the end of the test, we did give her theophylline. This reversed the symptoms that she was experiencing. There were ST-segment changes noted in the septal and lateral aspect on the cardiogram with flattening of the ST-segment. Also noted flattening in the inferior leads. Initial blood pressure was 114/84 with a heart rate of 76. At one minute recovery, blood pressure 146/89. At the end of the test, the blood pressure was 138/77 with a heart rate of 95. The accuracy of this test will be determined by the nuclear medicine portion. PREOPERATIVE DIAGNOSIS: Angina. POSTOPERATIVE DIAGNOSIS: Minor evidence of ST-segment flattening throughout the limb leads, as well as the inferior leads. The nuclear medicine evaluation will be of help, and we will speak with her once that is reported. Mehrdad Ward MD /[id number]
== END | disposition home or self-care (01) ==
LOC: JP.ACU 08:05
PROVIDERS: ATTEND Internal Medicine
DX: I20.9 Angina pectoris, unspecified (principal); I21.19 ST elevation (STEMI) myocardial infarction involving other coronary artery of inferior wall
CPT/HCPCS: 78452; 93017; A9500; J0280; J2785

== ENCOUNTER 2020-09-04 12:50 | Inpatient (IN) | payer MEDICARE, MEDICAID ==
[2020-09-04] MEDS ORDERED: Sodium Chloride 0.9% 1,000 ML IV ONE (13:18)
[2020-09-04 13:39] LABS: HEMOGLOBIN A1C 11.2 % (4.5-6.2)
[2020-09-04] MEDS: Sodium Chloride 0.9% 1,000 ML IV SCH ×2 (14:36→22:42)
--- NOTE | 2020-09-04 14:49 | CRLCR ---
INDICATION: Shortness of breath TECHNIQUE: Chest 2 views. COMPARISON: CT abdomen pelvis July 28, 2015 FINDINGS: Cardiovascular and mediastinum: Heart size and vasculature are normal in caliber and appearance. Mediastinum is within normal limits. Lungs and pleural spaces: There is the 2.8 x 1.0 cm oblong density adjacent to the left lateral heart base, seen only on the frontal projection. No sign of pleural effusion. No pneumothorax. Bones and soft tissues: Moderate multilevel degenerative changes in the spine. Mild dextroscoliosis. IMPRESSION: No sign of acute disease. Questionable pericardial fat pad versus pulmonary nodule at the left lung base. Recommend nonemergent chest CT for further evaluation. Dictated by Dulce Hu MD @ 09/04/2020 2:16:37 PM (Electronically Signed)
--- NOTE | 2020-09-04 17:08 | PCM.HP.2 ---
H&P History of Present Illness - General Date of Service: 09/04/20 Admit Problem/Dx: Admission Diagnosis/Problem Admission Diagnosis/Problem Hypotension Source of Information: Patient, Old Records History Limitations: Reports: No Limitations - History of Present Illness Initial Comments - Free Text/Narative: Audrey is a 64-year-old female who came into the office last evening with blood pressure 200/115. Her blood sugar was 375 and said she hadn't eaten for over 8 hours. She was supposed to be taking insulin but stopped taking it because she was having trouble swallowing. She was confused about taking her medicine. She was also not taking her blood sugars. I asked her to come back the next day and to bring all of her medicine and her blood sugar monitor and she brought only a slip of paper listing her medicines. Her blood sugar was 298 and said she had taken Lantus before she came in. She has no short acting insulin. Her blood pressure today at the office was 74/58 with a heart rate of 101 I felt admission was imperative. She is unsure what medicine she took for hypertension today. Onset of Symptoms: Reports: Gradual Duration of Symptoms: Reports: Week(s): - Related Data Allergies/Adverse Reactions: Allergies Allergy/AdvReac Type Severity Reaction Status Date / Time dicyclomine HCl [From Bentyl] Allergy Severe anaphylaxis Verified 08/03/18 09:44 flurbiprofen [From Ansaid] Allergy Severe anaphylaxis, Verified 08/03/18 09:44 tongue swelling. gentamicin [Gentamicin] Allergy Severe anaphylaxis, Verified 08/03/18 09:44 resp. distress vancomycin Allergy Severe anaphylaxis Verified 08/03/18 09:44 amoxicillin [Amoxicillin] Allergy Intermediate generalized Verified 08/03/18 09:44 rash ciprofloxacin Allergy Intermediate rash and Verified 08/03/18 09:44 swelling clarithromycin [From Biaxin] Allergy Intermediate generalized Verified 08/03/18 09:44 rash erythromycin base Allergy Intermediate Hives Verified 08/03/18 09:44 [Erythromycin Base] penicillin V [Penicillin V] Allergy Intermediate patchy-swollen Verified 08/03/18 09:44 skin pentazocine lactate Allergy Intermediate Hives Verified 08/03/18 09:44 [From Talwin] hyoscyamine sulfate Allergy Unknown Cannot Verified 08/03/18 09:44 [From Levsin] Remember Sulfa (Sulfonamide Allergy Unknown Cannot Verified 08/03/18 09:44 Antibiotics) Remember cyclobenzaprine HCl Allergy Cannot Verified 08/03/18 09:44 [From Flexeril] Remember NSAIDS (Non-Steroidal Allergy Cannot Verified 08/03/18 09:44 Anti-Inflamma Remember ondansetron HCl Allergy Cannot Verified 08/03/18 09:44 [From Zofran (as Remember hydrochloride)] morphine AdvReac Intermediate Vomiting Verified 08/03/18 09:44 cough syrup Allergy Cannot Uncoded 08/03/18 09:44 Remember Home Medications: Home Meds Melatonin 20 mg PO BEDTIME PRN 02/08/14 [History] Ezetimibe [Zetia] 10 mg PO DAILY 12/21/14 [History] Metoprolol Succinate 50 mg PO DAILY 02/16/15 [History] Nitroglycerin [Nitrostat] 0.4 mg SL ASDIRECTED PRN 03/07/15 [History] Pantoprazole Sodium 40 mg PO DAILY 07/15/17 [History] traZODone HCl [Trazodone HCl] 200 mg PO BEDTIME 07/15/17 [History] Gabapentin [Neurontin] 400 mg PO QID 07/22/17 [History] Insulin Glargine,Hum.Rec.Anlog [Lantus Solostar] 18 - 20 unit SQ DAILY 07/29/18 [History] Insulin Lispro [Humalog Kwikpen U-100] 10 - 20 unit SQ TID 07/29/18 [History] Mirtazapine 15 mg PO QPM 07/29/18 [History] Dapagliflozin Propanediol [Farxiga] 10 mg PO DAILY 09/04/20 [History] Past Medical History HEENT History: Reports: Impaired Vision Cardiovascular History: Reports: Afib, Angina, Arrhythmia, Blood Clots/VTE/DVT, CAD, High Cholesterol, Hypertension, CA, Other (See Below) Other Cardiovascular History: DVT cardiac arrest Mitral valve prolapse [place] TransiuminL ANGIOPLASTY Respiratory History: Reports: Asthma, Bronchitis, Recurrent, COPD, Intubation, Previous, Pneumothorax, SOB, Other (See Below) Other Respiratory History: pleursey Gastrointestinal History: Reports: Bowel Obstruction, Chronic Diarrhea, GI Bleed, Hemorrhoids, Hiatal Hernia, Jaundice, Other (See Below) Other Gastrointestinal History: chrohns disease, polyps Genitourinary History: Reports: Renal Calculus Other Genitourinary History: ileostomy 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: Reports: Dysfunctional Uterine Bleeding, Fibroids, , Spontaneous Musculoskeletal History: Reports: Back Pain, Chronic, Fracture, Fibromyalgia, Osteoarthritis, Osteoporosis, Other (See Below) Other Musculoskeletal History: bone spurs on feet Neurological History: Reports: Concussion, Headaches, Chronic, Head Trauma, Migraines, Seizure Psychiatric History: Reports: Anxiety, Depression, Panic Attack, PTSD Endocrine/Metabolic History: Reports: Diabetes, Type II, Obesity/BMI 30+, Osteoporosis Other Endocrine/Metabolic History: lupus Hematologic History: Reports: Anemia Immunologic History: Reports: Other (See Below) Other Immunologic History: Lupus Oncologic (Cancer) History: Reports: Colon Dermatologic History: Reports: Cellulitis - Infectious Disease History Infectious Disease History: Reports: Chicken Pox, Shingles - Past Surgical History HEENT Surgical History: Reports: Tonsillectomy Other HEENT Surgeries/Procedures: oral surgery GI Surgical History: Reports: Appendectomy, Colon, Colonoscopy, Colostomy, EGD, Hernia, Abdominal, Hernia, Inguinal, Hernia Repair/Other, Other (See Below) Other GI Surgeries/Procedures: 8 abdomenal surgeries, ileostomy Female Surgical History: Reports: D&C, Hysterectomy, Other (See Below) Other Female Surgeries/Procedures: fistula, "tear in my bladder" after procedure Neurological Surgical History: Reports: Lumbar Spine Musculoskeletal Surgical History: Reports: Arthroscopic Knee, Shoulder Surgery, Other (See Below) Other Musculoskeletal Surgeries/Procedures:: Spinal fusion Oncologic Surgical History: Reports: Other (See Below) Other Oncologic Surgeries/Procedures: left colol resection for colon mass Social & Family History - Family History Family Medical History: Unobtainable - Tobacco Use Tobacco Use Status *Q: Current Every Day Tobacco User Years of Tobacco use: 45 Packs/Tins Daily: 1 Second Hand Smoke Exposure: No - Caffeine Use Caffeine Use: Reports: Coffee, Soda - Recreational Drug Use Recreational Drug Use: No H&P Review of Systems - Review of Systems: Review Of Systems: See Below General: Reports: Weakness HEENT: Reports: No Symptoms Pulmonary: Reports: No Symptoms Cardiovascular: Reports: No Symptoms Gastrointestinal: Reports: No Symptoms Genitourinary: Reports: No Symptoms Musculoskeletal: Reports: Back Pain Skin: Reports: No Symptoms Psychiatric: Reports: Anxiety Neurological: Reports: No Symptoms Hematologic/Lymphatic: Reports: No Symptoms Exam - Exam Exam: See Below - Vital Signs Vital Signs: Last Vital Signs Temp Pulse 97 09/04/20 13:32 Resp 18 09/04/20 13:32 BP 97/70 09/04/20 13:34 Pulse Ox 97 09/04/20 13:32 Weight: 348 lb 5.286 oz - Exam General: Alert, Oriented, 4 HEENT: PERRLA, Hearing Intact, Mucosa Moist & [place], Nares Patent, Normal Nasal Septum, Posterior Pharynx Clear, Conjunctiva Clear, EOMI, EACs Clear, TMs Clear Neck: Supple, Trachea Midline, 2 Lungs: Clear to Auscultation, Normal Respiratory Effort Cardiovascular: Regular Rate, Regular Rhythm GI/Abdominal Exam: Normal Bowel Sounds, Soft, Non-Tender, No Organomegaly, No Distention, No Abnormal Bruit, No Mass, Pelvis Stable Extremities: Normal Inspection, Normal Range of Motion, Non-Tender, No Pedal Edema, Normal Capillary Refill Peripheral Pulses: 1+: Radial (L), Radial (R) Skin: Warm Neurological: Cranial Nerves Intact, Reflexes Equal Bilateral Neuro Extensive - Mental Status: Alert - Patient Data Lab Results Last 24 hrs: Laboratory Results - last 24 hr 09/04/20 09/04/20 09/04/20 Range/Units 13:12 13:12 13:12 WBC 8.6 (4.5-11.0) K/uL RBC 4.97 (3.30-5.50) M/uL Hgb 14.8 (12.0-15.0) g/dL Hct 43.2 (36.0-48.0) % MCV 87 (80-98) fL MCH 30 (27-31) pg MCHC 34 (32-36) % Plt Count 317 (150-400) K/uL Neut % (Auto) 69.8 H (36-66) % Lymph % (Auto) 22.6 L (24-44) % [place] % (Auto) 6.4 H (2-6) % Eos % (Auto) 0.6 L (2-4) % Baso % (Auto) 0.6 (0-1) % Sodium 136 L (140-148) mmol/L Potassium 4.7 (3.6-5.2) mmol/L Chloride 95 L (100-108) mmol/L Carbon Dioxide 28 (21-32) mmol/L Anion Gap 17.7 H (5.0-14.0) mmol/L BUN 22 H D (7-18) mg/dL Creatinine 1.8 H D (0.6-1.0) mg/dL Est Cr Clr Drug Dosing 26.46 mL/min Estimated GFR (MDRD) 28 L (>60) Glucose 302 H (74-106) mg/dL POC Glucose (74-106) mg/dL Hemoglobin A1c 11.2 H (4.5-6.2) % Calcium 9.4 (8.5-10.1) mg/dL Total Bilirubin 0.5 (0.2-1.0) mg/dL AST 43 H D (15-37) U/L ALT 48 D (12-78) U/L Alkaline Phosphatase 119 H (46-116) U/L Total Protein 7.1 (6.4-8.2) g/dL Albumin 4.0 (3.4-5.0) g/dL Globulin 3.1 (2.3-3.5) g/dL Albumin/Globulin Ratio 1.3 (1.2-2.2) /16/ Range/Units 16:23 WBC (4.5-11.0) K/uL RBC (3.30-5.50) M/uL Hgb (12.0-15.0) g/dL Hct (36.0-48.0) % MCV (80-98) fL MCH (27-31) pg MCHC (32-36) % Plt Count (150-400) K/uL Neut % (Auto) (36-66) % Lymph % (Auto) (24-44) % [place] % (Auto) (2-6) % Eos % (Auto) (2-4) % Baso % (Auto) (0-1) % Sodium (140-148) mmol/L Potassium (3.6-5.2) mmol/L Chloride (100-108) mmol/L Carbon Dioxide (21-32) mmol/L Anion Gap (5.0-14.0) mmol/L BUN (7-18) mg/dL Creatinine (0.6-1.0) mg/dL Est Cr Clr Drug Dosing mL/min Estimated GFR (MDRD) (>60) Glucose (74-106) mg/dL POC Glucose 159 H (74-106) mg/dL Hemoglobin A1c (4.5-6.2) % Calcium (8.5-10.1) mg/dL Total Bilirubin (0.2-1.0) mg/dL AST (15-37) U/L ALT (12-78) U/L Alkaline Phosphatase (46-116) U/L Total Protein (6.4-8.2) g/dL Albumin (3.4-5.0) g/dL Globulin (2.3-3.5) g/dL Albumin/Globulin Ratio (1.2-2.2) Result Diagrams: 09/04/20 13:12 09/04/20 13:12 Sepsis Event Note - Evaluation Sepsis Screening Result: No Definite Risk - Focused Exam Vital Signs: Vital Signs Pulse Resp BP Pulse Ox 09/04/20 13:34 97/70 09/04/20 13:32 97 18 87/53 L 97 Problem List Initiated/Reviewed/Updated: Yes Orders Last 24hrs: Active Orders 24 hr Category Date Time Status Patient Status [ADT] Routine ADT 09/04/20 13:13 Active Diabetes Education [RC] Click to Edit Care 09/04/20 14:49 Active Notify Provider [RC] PRN Care 09/04/20 14:49 Active Consistent Carbohydrate Diet [DIET] Diet 09/04/20 Dinner Active Chest wo Cont [CT] Routine Exams 09/04/20 16:05 Ordered GLUCOSE POC LAB TO COLLECT JPM [POC] QIDACANDBED Lab 09/04/20 21:00 Ordered GLUCOSE POC LAB TO COLLECT JPM [POC] QIDACANDBED Lab 09/05/20 07:30 Ordered GLUCOSE POC LAB TO COLLECT JPM [POC] QIDACANDBED Lab 09/05/20 11:30 Ordered GLUCOSE POC LAB TO COLLECT JPM [POC] QIDACANDBED Lab 09/05/20 16:30 Ordered GLUCOSE POC LAB TO COLLECT JPM [POC] QIDACANDBED Lab 09/05/20 21:00 Ordered GLUCOSE POC LAB TO COLLECT JPM [POC] QIDACANDBED Lab 09/06/20 07:30 Ordered GLUCOSE POC LAB TO COLLECT JPM [POC] QIDACANDBED Lab 09/06/20 11:30 Ordered GLUCOSE POC LAB TO COLLECT JPM [POC] QIDACANDBED Lab 09/06/20 16:30 Ordered GLUCOSE POC LAB TO COLLECT JPM [POC] QIDACANDBED Lab 09/06/20 21:00 Ordered GLUCOSE POC LAB TO COLLECT JPM [POC] QIDACANDBED Lab 09/07/20 07:30 Ordered GLUCOSE POC LAB TO COLLECT JPM [POC] QIDACANDBED Lab 09/07/20 11:30 Ordered GLUCOSE POC LAB TO COLLECT JPM [POC] QIDACANDBED Lab 09/07/20 16:30 Ordered GLUCOSE POC LAB TO COLLECT JPM [POC] QIDACANDBED Lab 09/07/20 21:00 Ordered GLUCOSE POC LAB TO COLLECT JPM [POC] QIDACANDBED Lab 09/08/20 07:30 Ordered GLUCOSE POC LAB TO COLLECT JPM [POC] QIDACANDBED Lab 09/08/20 11:30 Ordered GLUCOSE POC LAB TO COLLECT JPM [POC] QIDACANDBED Lab 09/08/20 16:30 Ordered GLUCOSE POC LAB TO COLLECT JPM [POC] QIDACANDBED Lab 09/08/20 21:00 Ordered GLUCOSE POC LAB TO COLLECT JPM [POC] QIDACANDBED Lab 09/09/20 07:30 Ordered GLUCOSE POC LAB TO COLLECT JPM [POC] QIDACANDBED Lab 09/09/20 11:30 Ordered GLUCOSE POC LAB TO COLLECT JPM [POC] QIDACANDBED Lab 09/09/20 16:30 Ordered GLUCOSE POC LAB TO COLLECT JPM [POC] QIDACANDBED Lab 09/09/20 21:00 Ordered GLUCOSE POC LAB TO COLLECT JPM [POC] QIDACANDBED Lab 09/10/20 07:30 Ordered GLUCOSE POC LAB TO COLLECT JPM [POC] QIDACANDBED Lab 09/10/20 11:30 Ordered UA W/MICROSCOPIC [URIN] Routine Lab 09/04/20 13:13 Ordered Insulin Lispro [HumaLOG] Med 09/04/20 17:00 Active See Protocol SUBCUT QIDACANDBED Sodium Chloride 0.9% [Normal Saline] 1,000 ml Med 09/04/20 13:15 Active IV ASDIRECTED Medication Orders Sodium Chloride (Normal Saline) 1,000 mls @ 125 mls/hr IV ASDIRECTED MARYBETH Last Admin: 09/04/20 14:36 Dose: 125 mls/hr Documented by: SKADTRA Insulin Human Lispro (Insulin Lispro 100 Unit/Ml 3 Ml Kwikpen) 0 unit SUBCUT QIDACANDBED [facility]; Protocol Assessment/Plan Comment:: Assessment/plan: #1. Hypotension/dehydration. She does have a history of hypertension I question her ability to handle her medicine without assistance at home since she was elevated yesterday and excessively low today whether she took extra medicine or not is in question she's probably dehydrated. Her blood pressure medicine needs to be adjusted and she needs education on taking medicine and she will need home care. #2. Diabetes type 2 she is poor control with a blood sugar of 300-400 she needs diabetic education. She also needs to know how to start her glucometer and needs instruction on proper diet. I will order diabetic education and she will need continued care to adjust her blood sugar. #3. She does have chronic back pain but not her acute problem presently. #4. COPD: This is a chronic condition secondary to her nicotine addiction #5. Atherosclerotic heart disease: This is stable at the present time. history of myocardial infarction 2000 #6. History of Crohn's disease with colostomy in place: #7. GERD: #8. Degenerative joint disease #9. Nicotine addiction: #10. Allergies: Ibuprofen, erythromycin, Talwin, vancomycin, amoxicillin, Biaxin, Cipro, metformin, morphine, penicillin, Bentyl. #11. History of mitral valve prolapse: #12. Surgical history: Tonsillectomy, appendectomy, hysterectomy, lumbar spine surgery, thrombosis lower leg, carpal tunnel, colorectal resection with colostomy, percutaneous transluminal angioplasty, coagulation of subclavian artery, repositioning of colostomy with repair from a pericolostomy hernia, closure of rectovaginal fistula, diagnostic laparotomy with repair of recurrent incisional hernia with mesh and umbilical hernia repair and replacement of Vicryl mesh for extensive intra-abdominal adhesions 2014. - Mortality Measure Prognosis:: Good
[2020-09-04] MEDS: Insulin Lispro 100 Unit/ML 3 ML KwikPen SUBCUT SCH ×2 (18:08→21:21)
[2020-09-04] MEDS ORDERED: 50% Dextrose in Water 50 ML Syringe IVPUSH PRN (18:23)
[2020-09-04] MEDS ORDERED: Nitroglycerin 0.4 MG Tab.SL SL PRN (18:23)
[2020-09-04] MEDS ORDERED: Glucagon,Human Recombinant 1 MG Vial IM PRN (18:23)
[2020-09-04] MEDS ORDERED: Gabapentin 400 MG Cap PO ONE (19:15)
[2020-09-04] MEDS: Mirtazapine 15 MG Tab PO SCH ×2 (19:28→21:21)
[2020-09-04] MEDS: traZODone 50 MG Tab PO SCH ×2 (19:28→21:21)
[2020-09-04] MEDS: Melatonin 3 MG Tab PO PRN ×2 (19:28→21:21)
[2020-09-04] MEDS ORDERED: Insulin Lispro 100 Unit/ML 3 ML KwikPen SUBCUT SCH (21:00)
[2020-09-05] MEDS ORDERED: Gabapentin 400 MG Cap ONE (03:51)
[2020-09-05] MEDS: Gabapentin 400 MG Cap PO SCH ×5 (03:52→21:47)
[2020-09-05] MEDS: Sodium Chloride 0.9% 1,000 ML IV SCH ×2 (06:42→14:47)
[2020-09-05] MEDS: Insulin Lispro 100 Unit/ML 3 ML KwikPen SUBCUT SCH ×4 (08:46→21:47)
[2020-09-05] MEDS: Insulin Glargine,Human Rec. Analog 100 Units/ML 3 ML Pen SUBCUT SCH (08:46)
[2020-09-05] MEDS: Ezetimibe 10 MG Tab PO SCH (08:47)
[2020-09-05] MEDS: Pantoprazole 40 MG Tab.CR PO SCH (08:48)
[2020-09-05] MEDS ORDERED: Metoprolol Succinate 50 MG Tab.ER PO SCH (09:00)
[2020-09-05] MEDS ORDERED: Empagliflozin 10 MG Tab PO SCH (10:00)
[2020-09-05] MEDS: Cyclobenzaprine 10 MG Tab PO PRN ×2 (10:10→20:42)
[2020-09-05] MEDS: Empagliflozin 10 MG Tab PO SCH (12:40)
--- NOTE | 2020-09-05 13:59 | CT ---
Chest wo Cont CLINICAL HISTORY: Pulmonary nodule TECHNIQUE: Transverse scans were obtained from the thoracic inlet to the lung bases without contrast. Auto dosage reduction in intervertebral reconstruction techniques were employed COMPARISONS: Plain images 09/05/2019 FINDINGS: There is a small groundglass opacity in the right apex anteriorly. There is a bilobed groundglass opacity in the right upper lobe measuring 1.0 x 2.3 cm. There are a few scattered punctate calcifications. Density described on the recent chest x-ray is cardiac fat pad. There appear to be some low-attenuation nodules in the left lobe of the thyroid versus streak artifact. There are a few small nonspecific lymph nodes in the mediastinum. No pleural effusion is seen. There is a irregular asymmetric density in the lateral aspect of the right breast. This may represent some normal breast parenchyma. IMPRESSION: 2 small groundglass opacities are seen in the right upper lobe. This should be followed using Fleischner Society criteria. Asymmetric density in the lateral aspect of the right breast uncertain chronology. There are no available mammograms to correlate with. If patient has not had a recent mammogram, it should be considered. Nodular density described on recent chest x-ray in the left lung base is cardiac fat pad. FLEISCHNER CRITERIA (2017) Incidental Pulmonary Nodule Follow-up SUB-SOLID NODULES: Nodule size <6 mm -single ground-glass, part solid: no routine follow-up -multiple: CT at 3-6 months. If stable, consider CT at 2 and 4 years Nodule size ?6 mm -single ground-glass: CT at 6-12 months to confirm persistence, then CT every 2 years until 5 years -single part solid: CT at 3-6 months to confirm persistence. If unchanged and solid component remains <6 mm, annual CT should be performed for 5 years -multiple: CT at 3-6 months. Subsequent management based on the most suspicious nodule(s) Implications for Patient Care 1. These guidelines apply to incidental nodules, which can be managed according to the specific recommendations. 2. These guidelines do not apply to patients younger than 35 years, immunocompromised patients, or patients with cancer. 3. For lung cancer screening, adherence to the existing [employer] Lung CT Screening Reporting and Data System (Lung-RADS) guidelines is recommended.
[2020-09-05] MEDS ORDERED: Mirtazapine 15 MG Tab PO SCH (17:00)
[2020-09-05] MEDS: traZODone 50 MG Tab PO SCH (20:39)
[2020-09-05] MEDS: Mirtazapine 15 MG Tab PO SCH (20:40)
--- NOTE | 2020-09-05 21:05 | PCM.PN ---
- General Info Date of Service: 09/05/20 Functional Status: Reports: Pain Controlled - Review of Systems General: Reports: Weakness, Fatigue HEENT: Reports: No Symptoms Pulmonary: Reports: No Symptoms Cardiovascular: Reports: No Symptoms Gastrointestinal: Reports: Other (abdominal tenderness) Genitourinary: Reports: No Symptoms Musculoskeletal: Reports: Back Pain Skin: Reports: No Symptoms Neurological: Reports: No Symptoms - Patient Data Vitals - Most Recent: Last Vital Signs Temp 96.3 F L 09/05/20 19:00 Pulse 83 09/05/20 19:00 Resp 16 09/05/20 19:00 BP 161/67 H 09/05/20 19:00 Pulse Ox 97 09/05/20 19:00 Weight - Most Recent: 158 lb 0.014 oz I&O - Last 24 Hours: Intake & Output 09/05/20 09/05/20 09/05/20 06:59 14:59 22:59 Intake Total 2344 500 1100 Output Total 800 Balance 2344 -300 1100 Lab Results Last 24 Hours: Laboratory Results - last 24 hr 09/05/20 09/05/20 09/05/20 Range/Units 07:40 10:01 11:27 Sodium 141 (140-148) mmol/L Potassium 4.0 (3.6-5.2) mmol/L Chloride 106 (100-108) mmol/L Carbon Dioxide 26 (21-32) mmol/L Anion Gap 9.4 (5.0-14.0) mmol/L BUN 16 (7-18) mg/dL Creatinine 0.8 D (0.6-1.0) mg/dL Est Cr Clr Drug Dosing 59.54 mL/min Estimated GFR (MDRD) > 60 (>60) Glucose 234 H (74-106) mg/dL POC Glucose 247 H 187 H (74-106) mg/dL Calcium 7.9 L D (8.5-10.1) mg/dL 09/05/20 Range/Units 17:24 Sodium (140-148) mmol/L Potassium (3.6-5.2) mmol/L Chloride (100-108) mmol/L Carbon Dioxide (21-32) mmol/L Anion Gap (5.0-14.0) mmol/L BUN (7-18) mg/dL Creatinine (0.6-1.0) mg/dL Est Cr Clr Drug Dosing mL/min Estimated GFR (MDRD) (>60) Glucose (74-106) mg/dL POC Glucose 116 H (74-106) mg/dL Calcium (8.5-10.1) mg/dL Med Orders - Current: Current Medications Cyclobenzaprine HCl (Cyclobenzaprine 10 Mg Tab) 10 mg PO Q8H PRN PRN Reason: Spasms Last Admin: 09/05/20 20:42 Dose: 10 mg Documented by: Dextrose/Water (50% Dextrose In Water 50 Ml Syringe) 50 ml IVPUSH ASDIRECTED PRN PRN Reason: Hypoglycemia Ezetimibe (Ezetimibe 10 Mg Tab) 10 mg PO DAILY [facility] Last Admin: 09/05/20 08:47 Dose: 10 mg Documented by: Gabapentin (Gabapentin 400 Mg Cap) 400 mg PO QID [facility] Last Admin: 09/05/20 15:07 Dose: 400 mg Documented by: Glucagon (Glucagon,Human Recombinant 1 Mg Vial) 1 mg IM ASDIRECTED PRN PRN Reason: Hypoglycemia Insulin Glargine (Insulin Glargine,Human Rec. Analog 100 Units/Ml 3 Ml Pen) 18 - 20 units SUBCUT DAILY [facility] Last Admin: 09/05/20 08:46 Dose: 20 units Documented by: Insulin Human Lispro (Insulin Lispro 100 Unit/Ml 3 Ml Kwikpen) 0 unit SUBCUT QIDACANDBED [facility]; Protocol Last Admin: 09/05/20 17:35 Dose: Not Given Documented by: Melatonin (Melatonin 3 Mg Tab) 12 mg PO BEDTIME PRN PRN Reason: Other Last Admin: 09/04/20 21:21 Dose: 12 mg Documented by: Metoprolol Succinate (Metoprolol Succinate 50 Mg Tab.Er) 50 mg PO DAILY [facility] Last Admin: 09/05/20 08:48 Dose: 50 mg Documented by: Mirtazapine (Mirtazapine 15 Mg Tab) 15 mg PO DAILY@1999 [facility] Last Admin: 09/05/20 20:40 Dose: 15 mg Documented by: Nitroglycerin (Nitroglycerin 0.4 Mg Tab.Sl) 0.4 mg SL ASDIRECTED PRN PRN Reason: Chest Pain Pantoprazole Sodium (Pantoprazole 40 Mg Tab.Cr) 40 mg PO ACBREAKFAST [facility] Last Admin: 09/05/20 08:48 Dose: 40 mg Documented by: Trazodone HCl (Trazodone 50 Mg Tab) 200 mg PO BEDTIME [facility] Last Admin: 09/05/20 20:39 Dose: 200 mg Documented by: Discontinued Medications Gabapentin (Gabapentin 400 Mg Cap) 400 mg PO ONETIME ONE Stop: 09/04/20 19:16 Last Admin: 09/04/20 19:28 Dose: 400 mg Documented by: Gabapentin (Gabapentin 400 Mg Cap) Confirm Administered Dose 400 mg .ROUTE .STK- MED ONE Stop: 09/05/20 03:52 Last Admin: 09/05/20 03:59 Dose: Not Given Documented by: Sodium Chloride (Normal Saline) 1,000 mls @ 125 mls/hr IV ASDIRECTED [facility] Last Admin: 09/05/20 14:47 Dose: 125 mls/hr Documented by: Sodium Chloride (Normal Saline) 1,000 mls @ 999 mls/hr IV .BOLUS ONE Stop: 09/04/20 14:18 Last Admin: 09/04/20 14:28 Dose: 999 mls/hr Documented by: Insulin Human Lispro (Insulin Lispro 100 Unit/Ml 3 Ml Kwikpen) 10 - 20 unit SUBCUT TID [facility] Mirtazapine (Mirtazapine 15 Mg Tab) 15 mg PO QPM [facility]ARYB[facility] - Exam General: Alert, Oriented, Cooperative, Mild Distress HEENT: Pupils Equal, Pupils Reactive, EOMI, Mucous Membr. Moist/[place] Neck: Supple Lungs: Clear to Auscultation, Normal Respiratory Effort Cardiovascular: Regular Rate, Regular Rhythm GI/Abdominal Exam: Soft, Tender Back Exam: Paraspinal Tenderness Peripheral Pulses: 1+: Radial (L), Radial (R) Skin: Warm, Dry, Intact Psy/Mental Status: Alert, Anxious - Patient Data Lab Results Last 24 hrs: Laboratory Results - last 24 hr 09/05/20 09/05/20 09/05/20 Range/Units 07:40 10:01 11:27 Sodium 141 (140-148) mmol/L Potassium 4.0 (3.6-5.2) mmol/L Chloride 106 (100-108) mmol/L Carbon Dioxide 26 (21-32) mmol/L Anion Gap 9.4 (5.0-14.0) mmol/L BUN 16 (7-18) mg/dL Creatinine 0.8 D (0.6-1.0) mg/dL Est Cr Clr Drug Dosing 59.54 mL/min Estimated GFR (MDRD) > 60 (>60) Glucose 234 H (74-106) mg/dL POC Glucose 247 H 187 H (74-106) mg/dL Calcium 7.9 L D (8.5-10.1) mg/dL 09/05/20 Range/Units 17:24 Sodium (140-148) mmol/L Potassium (3.6-5.2) mmol/L Chloride (100-108) mmol/L Carbon Dioxide (21-32) mmol/L Anion Gap (5.0-14.0) mmol/L BUN (7-18) mg/dL Creatinine (0.6-1.0) mg/dL Est Cr Clr Drug Dosing mL/min Estimated GFR (MDRD) (>60) Glucose (74-106) mg/dL POC Glucose 116 H (74-106) mg/dL Calcium (8.5-10.1) mg/dL Result Diagrams: 09/04/20 13:12 09/05/20 10:01 Sepsis Event Note - Evaluation Sepsis Screening Result: No Definite Risk - Focused Exam Vital Signs: Vital Signs Temp Pulse Resp BP Pulse Ox 09/05/20 19:00 96.3 F L 83 16 161/67 H 97 09/05/20 15:14 97.3 F 72 16 128/78 97 09/05/20 11:28 97.9 F 79 16 154/85 H 95 - Problem List Review Problem List Initiated/Reviewed/Updated: Yes - My Orders Last 24 Hours: My Active Orders 09/04/20 21:00 traZODone 200 mg PO BEDTIME 09/05/20 06:00 Gabapentin [Neurontin] 400 mg PO QID 09/05/20 07:30 Pantoprazole [ProTONIX] 40 mg PO ACBREAKFAST 09/05/20 09:00 Ezetimibe [Zetia] 10 mg PO DAILY Insulin Glarg,Human.Rec.Analog [LantUS Solostar] 18 - 20 units SUBCUT DAILY Metoprolol Succinate [Toprol XL] 50 mg PO DAILY 09/05/20 09:59 Cyclobenzaprine [Flexeril] 10 mg PO Q8H PRN 09/05/20 12:00 Empagliflozin [Jardiance] 25 mg PO DAILY 09/05/20 16:17 Convert IV to Saline Lock [OM.PC] Routine 09/05/20 21:00 GLUCOSE POC LAB TO COLLECT JPM [POC] QIDACANDBED 09/06/20 07:30 GLUCOSE POC LAB TO COLLECT JPM [POC] QIDACANDBED 09/06/20 11:30 GLUCOSE POC LAB TO COLLECT JPM [POC] QIDACANDBED 09/06/20 16:30 GLUCOSE POC LAB TO COLLECT JPM [POC] QIDACANDBED 09/06/20 21:00 GLUCOSE POC LAB TO COLLECT JPM [POC] QIDACANDBED 09/07/20 07:30 GLUCOSE POC LAB TO COLLECT JPM [POC] QIDACANDBED 09/07/20 11:30 GLUCOSE POC LAB TO COLLECT JPM [POC] QIDACANDBED 09/07/20 16:30 GLUCOSE POC LAB TO COLLECT JPM [POC] QIDACANDBED 09/07/20 21:00 GLUCOSE POC LAB TO COLLECT JPM [POC] QIDACANDBED 09/08/20 07:30 GLUCOSE POC LAB TO COLLECT JPM [POC] QIDACANDBED 09/08/20 11:30 GLUCOSE POC LAB TO COLLECT JPM [POC] QIDACANDBED 09/08/20 16:30 GLUCOSE POC LAB TO COLLECT JPM [POC] QIDACANDBED 09/08/20 21:00 GLUCOSE POC LAB TO COLLECT JPM [POC] QIDACANDBED 09/09/20 07:30 GLUCOSE POC LAB TO COLLECT JPM [POC] QIDACANDBED 09/09/20 11:30 GLUCOSE POC LAB TO COLLECT JPM [POC] QIDACANDBED 09/09/20 16:30 GLUCOSE POC LAB TO COLLECT JPM [POC] QIDACANDBED 09/09/20 21:00 GLUCOSE POC LAB TO COLLECT JPM [POC] QIDACANDBED 09/10/20 07:30 GLUCOSE POC LAB TO COLLECT JPM [POC] QIDACANDBED 09/10/20 11:30 GLUCOSE POC LAB TO COLLECT JPM [POC] QIDACANDBED - Plan Plan:: Assessment/plan: #1. Hypotension/dehydration. Her blood pressure has improved and she is taking the medication now as directed. This morning her blood pressure was 128/78 this afternoon is 161/67. She is no longer dehydrated and the creatinine has dropped down to 0.8. This evening I have stopped the IV fluids as she is drinking fluids well.. #2. Diabetes type 2 she is poor control. She did have diabetic education today and it was felt that she did not understand how to check her blood sugar or take insulin and she is not compliant. I feel that she definitely needs home care for instruction on how to control her diabetes. She also needs instruction on how to properly take her medicines. Her hemoglobin A1c is greater than 11 certainly this is not good control. #3. She does have chronic back pain but not her acute problem presently. #4. COPD: This is a chronic condition secondary to her nicotine addiction #5. Atherosclerotic heart disease: This is stable at the present time. history of myocardial infarction 2000 #6. History of Crohn's disease with colostomy in place: #7. GERD: #8. Degenerative joint disease #9. Nicotine addiction: #10. Allergies: Ibuprofen, erythromycin, Talwin, vancomycin, amoxicillin, Biaxin, Cipro, metformin, morphine, penicillin, Bentyl. #11. History of mitral valve prolapse: #12. Lung lesions: She does need follow-up on her lung lesions will follow the guidelines. He will discuss this with the radiologist tomorrow #13. Surgical history: Tonsillectomy, appendectomy, hysterectomy, lumbar spine surgery, thrombosis lower leg, carpal tunnel, colorectal resection with colostomy, percutaneous transluminal angioplasty, coagulation of subclavian artery, repositioning of colostomy with repair from a pericolostomy hernia, closure of rectovaginal fistula, diagnostic laparotomy with repair of recurrent incisional hernia with mesh and umbilical hernia repair and replacement of Vicryl mesh for extensive intra-abdominal adhesions 2014. I will try to get her home tomorrow depending on her understanding of her general care and will speak with the certified adaptive physical educator and make sure that she has follow-up.
[2020-09-06] MEDS: Gabapentin 400 MG Cap PO SCH ×4 (06:00→21:02)
[2020-09-06] MEDS: Pantoprazole 40 MG Tab.CR PO SCH (07:15)
[2020-09-06] MEDS: Ezetimibe 10 MG Tab PO SCH (09:15)
[2020-09-06] MEDS: Empagliflozin 10 MG Tab PO SCH (09:15)
[2020-09-06] MEDS: Insulin Glargine,Human Rec. Analog 100 Units/ML 3 ML Pen SUBCUT SCH (09:19)
[2020-09-06] MEDS: Metoprolol Succinate 50 MG Tab.ER PO SCH (09:23)
[2020-09-06] MEDS: Insulin Lispro 100 Unit/ML 3 ML KwikPen SUBCUT SCH ×4 (09:25→21:00)
[2020-09-06] MEDS: Cyclobenzaprine 10 MG Tab PO PRN ×2 (09:29→17:59)
--- NOTE | 2020-09-06 18:30 | PCM.PN ---
- General Info Date of Service: 09/06/20 Subjective Update: Janie has confusion of her meds and blood sugar control - Review of Systems General: Reports: Weakness HEENT: Reports: No Symptoms Pulmonary: Reports: No Symptoms Cardiovascular: Reports: No Symptoms Gastrointestinal: Reports: Abdominal Pain Genitourinary: Reports: No Symptoms Musculoskeletal: Reports: Back Pain Skin: Reports: No Symptoms Neurological: Reports: No Symptoms Psychiatric: Reports: Anxiety - Patient Data Vitals - Most Recent: Last Vital Signs Temp 96.4 F L 09/06/20 15:00 Pulse 71 09/06/20 15:00 Resp 16 09/06/20 15:00 BP 158/73 H 09/06/20 15:00 Pulse Ox 97 09/06/20 15:00 Weight - Most Recent: 158 lb 0.014 oz I&O - Last 24 Hours: Intake & Output 09/06/20 09/06/20 09/06/20 06:59 14:59 22:59 Intake Total 200 260 Output Total 1000 Balance 200 260 -1000 Lab Results Last 24 Hours: Laboratory Results - last 24 hr 09/05/20 09/06/20 09/06/20 Range/Units 21:02 07:22 11:24 POC Glucose 151 H 127 H 138 H (74-106) mg/dL 09/06/20 Range/Units 16:35 POC Glucose 176 H (74-106) mg/dL Med Orders - Current: Current Medications Cyclobenzaprine HCl (Cyclobenzaprine 10 Mg Tab) 10 mg PO Q8H PRN PRN Reason: Spasms Last Admin: 09/06/20 17:59 Dose: 10 mg Documented by: Dextrose/Water (50% Dextrose In Water 50 Ml Syringe) 50 ml IVPUSH ASDIRECTED PRN PRN Reason: Hypoglycemia Ezetimibe (Ezetimibe 10 Mg Tab) 10 mg PO DAILY [facility] Last Admin: 09/06/20 09:15 Dose: 10 mg Documented by: Gabapentin (Gabapentin 400 Mg Cap) 400 mg PO QID [facility] Last Admin: 09/06/20 15:15 Dose: 400 mg Documented by: Glucagon (Glucagon,Human Recombinant 1 Mg Vial) 1 mg IM ASDIRECTED PRN PRN Reason: Hypoglycemia Insulin Glargine (Insulin Glargine,Human Rec. Analog 100 Units/Ml 3 Ml Pen) 18 - 20 units SUBCUT DAILY [facility] Last Admin: 09/06/20 09:19 Dose: 20 units Documented by: Insulin Human Lispro (Insulin Lispro 100 Unit/Ml 3 Ml Kwikpen) 0 unit SUBCUT QIDACANDBED [facility]; Protocol Last Admin: 09/06/20 17:58 Dose: 1 units Documented by: Melatonin (Melatonin 3 Mg Tab) 12 mg PO BEDTIME PRN PRN Reason: Other Last Admin: 09/04/20 21:21 Dose: 12 mg Documented by: Metoprolol Succinate (Metoprolol Succinate 50 Mg Tab.Er) 100 mg PO DAILY [facility] Last Admin: 09/06/20 09:23 Dose: 100 mg Documented by: Mirtazapine (Mirtazapine 15 Mg Tab) 15 mg PO DAILY@1999 [facility] Last Admin: 09/05/20 20:40 Dose: 15 mg Documented by: Nitroglycerin (Nitroglycerin 0.4 Mg Tab.Sl) 0.4 mg SL ASDIRECTED PRN PRN Reason: Chest Pain Pantoprazole Sodium (Pantoprazole 40 Mg Tab.Cr) 40 mg PO ACBREAKFAST [facility] Last Admin: 09/06/20 07:15 Dose: 40 mg Documented by: Trazodone HCl (Trazodone 50 Mg Tab) 200 mg PO BEDTIME [facility] Last Admin: 09/05/20 20:39 Dose: 200 mg Documented by: Discontinued Medications Gabapentin (Gabapentin 400 Mg Cap) 400 mg PO ONETIME ONE Stop: 09/04/20 19:16 Last Admin: 09/04/20 19:28 Dose: 400 mg Documented by: Gabapentin (Gabapentin 400 Mg Cap) Confirm Administered Dose 400 mg .ROUTE .STK- MED ONE Stop: 09/05/20 03:52 Last Admin: 09/05/20 03:59 Dose: Not Given Documented by: Sodium Chloride (Normal Saline) 1,000 mls @ 125 mls/hr IV ASDIRECTED [facility] Last Admin: 09/05/20 14:47 Dose: 125 mls/hr Documented by: Sodium Chloride (Normal Saline) 1,000 mls @ 999 mls/hr IV .BOLUS ONE Stop: 09/04/20 14:18 Last Admin: 09/04/20 14:28 Dose: 999 mls/hr Documented by: Insulin Human Lispro (Insulin Lispro 100 Unit/Ml 3 Ml Kwikpen) 10 - 20 unit SUBCUT TID [facility] Metoprolol Succinate (Metoprolol Succinate 50 Mg Tab.Er) 50 mg PO DAILY [facility] Last Admin: 09/05/20 08:48 Dose: 50 mg Documented by: Mirtazapine (Mirtazapine 15 Mg Tab) 15 mg PO QPM [facility] - Exam General: Alert, Oriented HEENT: Pupils Equal, Pupils Reactive, EOMI, Mucous Membr. Moist/[place] Neck: Supple Lungs: Clear to Auscultation, Normal Respiratory Effort Cardiovascular: Regular Rate, Regular Rhythm GI/Abdominal Exam: Tender Back Exam: Vertebral Tenderness Extremities: Normal Inspection, No Pedal Edema Peripheral Pulses: 1+: Radial (L), Radial (R) Skin: Warm, Dry, Intact Psy/Mental Status: Alert, Normal Affect, Normal Mood - Patient Data Lab Results Last 24 hrs: Laboratory Results - last 24 hr 09/05/20 09/06/20 09/06/20 Range/Units 21:02 07:22 11:24 POC Glucose 151 H 127 H 138 H (74-106) mg/dL 09/06/20 Range/Units 16:35 POC Glucose 176 H (74-106) mg/dL Result Diagrams: 09/04/20 13:12 09/05/20 10:01 Sepsis Event Note - Evaluation Sepsis Screening Result: No Definite Risk - Focused Exam Vital Signs: Vital Signs Temp Pulse Pulse Resp BP BP Pulse Ox 09/06/20 15:00 96.4 F L 71 16 158/73 H 97 09/06/20 11:45 96.1 F L 71 18 160/68 H 71 L 09/06/20 09:23 72 155/73 H 09/06/20 08:59 96.1 F L 72 18 155/73 H 95 - Problem List Review Problem List Initiated/Reviewed/Updated: Yes - My Orders Last 24 Hours: My Active Orders 09/06/20 09:00 Metoprolol Succinate [Toprol XL] 100 mg PO DAILY 09/06/20 21:00 GLUCOSE POC LAB TO COLLECT JPM [POC] QIDACANDBED 09/07/20 07:30 GLUCOSE POC LAB TO COLLECT JPM [POC] QIDACANDBED 09/07/20 11:30 GLUCOSE POC LAB TO COLLECT JPM [POC] QIDACANDBED 09/07/20 16:30 GLUCOSE POC LAB TO COLLECT JPM [POC] QIDACANDBED 09/07/20 21:00 GLUCOSE POC LAB TO COLLECT JPM [POC] QIDACANDBED 09/08/20 07:30 GLUCOSE POC LAB TO COLLECT JPM [POC] QIDACANDBED 09/08/20 11:30 GLUCOSE POC LAB TO COLLECT JPM [POC] QIDACANDBED 09/08/20 16:30 GLUCOSE POC LAB TO COLLECT JPM [POC] QIDACANDBED 09/08/20 21:00 GLUCOSE POC LAB TO COLLECT JPM [POC] QIDACANDBED 09/09/20 07:30 GLUCOSE POC LAB TO COLLECT JPM [POC] QIDACANDBED 09/09/20 11:30 GLUCOSE POC LAB TO COLLECT JPM [POC] QIDACANDBED 09/09/20 16:30 GLUCOSE POC LAB TO COLLECT JPM [POC] QIDACANDBED 09/09/20 21:00 GLUCOSE POC LAB TO COLLECT JPM [POC] QIDACANDBED 09/10/20 07:30 GLUCOSE POC LAB TO COLLECT JPM [POC] QIDACANDBED 09/10/20 11:30 GLUCOSE POC LAB TO COLLECT JPM [POC] QIDACANDBED - Plan Plan:: Assessment/plan: #1. Hypertension: When she came in she had overdosed on meds for BP as her BP was low. She is not safe handling her own medication without help. She needs to be in an assisted living facility. #2. Diabetes type 2 she is poor control with a blood sugar of 300-400 she needs diabetic care for proper care. Again living in a shelter is essential. #3. She does have chronic back pain but not her acute problem presently. #4. COPD: This is a chronic condition secondary to her nicotine addiction #5. Atherosclerotic heart disease: This is stable at the present time. history of myocardial infarction 2000 #6. History of Crohn's disease with colostomy in place: #7. GERD: #8. Degenerative joint disease #9. Nicotine addiction: #10. Allergies: Ibuprofen, erythromycin, Talwin, vancomycin, amoxicillin, Biaxin, Cipro, metformin, morphine, penicillin, Bentyl. #11. History of mitral valve prolapse: #12. Lung lump: Need to repeat the CT in 3 months. #13: Surgical history: Tonsillectomy, appendectomy, hysterectomy, lumbar spine surgery, thrombosis lower leg, carpal tunnel, colorectal resection with colostomy, percutaneous transluminal angioplasty, coagulation of subclavian artery, repositioning of colostomy with repair from a pericolostomy hernia, closure of rectovaginal fistula, diagnostic laparotomy with repair of recurrent incisional hernia with mesh and umbilical hernia repair and replacement of Vicryl mesh for extensive intra-abdominal adhesions 2014. Home as soon as safe for her care.
[2020-09-06] MEDS: Mirtazapine 15 MG Tab PO SCH (21:01)
[2020-09-06] MEDS: traZODone 50 MG Tab PO SCH (21:01)
[2020-09-07] MEDS: Gabapentin 400 MG Cap PO SCH ×2 (05:45→10:34)
[2020-09-07] MEDS: Cyclobenzaprine 10 MG Tab PO PRN (08:35)
[2020-09-07] MEDS: Empagliflozin 10 MG Tab PO SCH (08:36)
[2020-09-07] MEDS: Pantoprazole 40 MG Tab.CR PO SCH (08:36)
[2020-09-07] MEDS: Metoprolol Succinate 50 MG Tab.ER PO SCH (08:37)
[2020-09-07] MEDS: Ezetimibe 10 MG Tab PO SCH (08:38)
[2020-09-07] MEDS: Insulin Glargine,Human Rec. Analog 100 Units/ML 3 ML Pen SUBCUT SCH (08:39)
[2020-09-07] MEDS: Insulin Lispro 100 Unit/ML 3 ML KwikPen SUBCUT SCH ×2 (08:39→12:38)
[2020-09-07 12:13] VITALS: BP 148/86; PULSE 73
--- NOTE | 2020-09-07 22:28 | PCM.PN ---
- General Info Date of Service: 09/07/20 Subjective Update: She is feeling better and wanting to go home. She feels like she can follow instructions and knows now now to check her blood sugar. Functional Status: Reports: Pain Controlled - Review of Systems General: Reports: Weakness HEENT: Reports: No Symptoms Pulmonary: Reports: No Symptoms Cardiovascular: Reports: No Symptoms Gastrointestinal: Reports: Abdominal Pain Genitourinary: Reports: No Symptoms Musculoskeletal: Reports: No Symptoms Skin: Reports: No Symptoms Neurological: Reports: No Symptoms Psychiatric: Reports: No Symptoms - Patient Data Vitals - Most Recent: Last Vital Signs Temp 96.7 F L 09/07/20 07:00 Pulse 73 09/07/20 12:11 Resp 16 09/07/20 12:11 BP 148/86 H 09/07/20 12:11 Pulse Ox 99 09/07/20 12:11 Weight - Most Recent: 158 lb 0.014 oz I&O - Last 24 Hours: Intake & Output 09/07/20 09/07/20 09/07/20 06:59 14:59 22:59 Intake Total 600 Balance 600 Lab Results Last 24 Hours: Laboratory Results - last 24 hr 09/07/20 09/07/20 09/07/20 Range/Units 07:24 07:35 07:35 WBC 6.2 (4.5-11.0) K/uL RBC 5.03 (3.30-5.50) M/uL Hgb 15.1 H (12.0-15.0) g/dL Hct 43.1 (36.0-48.0) % MCV 86 (80-98) fL MCH 30 (27-31) pg MCHC 35 (32-36) % Plt Count 247 (150-400) K/uL Neut % (Auto) 53.1 (36-66) % Lymph % (Auto) 38.2 (24-44) % [place] % (Auto) 6.5 H (2-6) % Eos % (Auto) 1.9 L (2-4) % Baso % (Auto) 0.3 (0-1) % Sodium 139 L (140-148) mmol/L Potassium 3.8 (3.6-5.2) mmol/L Chloride 100 (100-108) mmol/L Carbon Dioxide 25 (21-32) mmol/L Anion Gap 17.8 H (5.0-14.0) mmol/L BUN 17 (7-18) mg/dL Creatinine 0.7 (0.6-1.0) mg/dL Est Cr Clr Drug Dosing 68.02 mL/min Estimated GFR (MDRD) > 60 (>60) Glucose 121 H (74-106) mg/dL POC Glucose 115 H (74-106) mg/dL Calcium 9.5 D (8.5-10.1) mg/dL 09/07/20 Range/Units 11:53 WBC (4.5-11.0) K/uL RBC (3.30-5.50) M/uL Hgb (12.0-15.0) g/dL Hct (36.0-48.0) % MCV (80-98) fL MCH (27-31) pg MCHC (32-36) % Plt Count (150-400) K/uL Neut % (Auto) (36-66) % Lymph % (Auto) (24-44) % [place] % (Auto) (2-6) % Eos % (Auto) (2-4) % Baso % (Auto) (0-1) % Sodium (140-148) mmol/L Potassium (3.6-5.2) mmol/L Chloride (100-108) mmol/L Carbon Dioxide (21-32) mmol/L Anion Gap (5.0-14.0) mmol/L BUN (7-18) mg/dL Creatinine (0.6-1.0) mg/dL Est Cr Clr Drug Dosing mL/min Estimated GFR (MDRD) (>60) Glucose (74-106) mg/dL POC Glucose 236 H (74-106) mg/dL Calcium (8.5-10.1) mg/dL Med Orders - Current: Current Medications Discontinued Medications Cyclobenzaprine HCl (Cyclobenzaprine 10 Mg Tab) 10 mg PO Q8H PRN PRN Reason: Spasms Last Admin: 09/07/20 08:35 Dose: 10 mg Documented by: Dextrose/Water (50% Dextrose In Water 50 Ml Syringe) 50 ml IVPUSH ASDIRECTED PRN PRN Reason: Hypoglycemia Ezetimibe (Ezetimibe 10 Mg Tab) 10 mg PO DAILY [facility] Last Admin: 09/07/20 08:38 Dose: 10 mg Documented by: Gabapentin (Gabapentin 400 Mg Cap) 400 mg PO QID [facility] Last Admin: 09/07/20 10:34 Dose: 400 mg Documented by: Gabapentin (Gabapentin 400 Mg Cap) 400 mg PO ONETIME ONE Stop: 09/04/20 19:16 Last Admin: 09/04/20 19:28 Dose: 400 mg Documented by: Gabapentin (Gabapentin 400 Mg Cap) Confirm Administered Dose 400 mg .ROUTE .STK- MED ONE Stop: 09/05/20 03:52 Last Admin: 09/05/20 03:59 Dose: Not Given Documented by: Glucagon (Glucagon,Human Recombinant 1 Mg Vial) 1 mg IM ASDIRECTED PRN PRN Reason: Hypoglycemia Sodium Chloride (Normal Saline) 1,000 mls @ 125 mls/hr IV ASDIRECTED [facility] Last Admin: 09/05/20 14:47 Dose: 125 mls/hr Documented by: Sodium Chloride (Normal Saline) 1,000 mls @ 999 mls/hr IV .BOLUS ONE Stop: 09/04/20 14:18 Last Admin: 09/04/20 14:28 Dose: 999 mls/hr Documented by: Insulin Glargine (Insulin Glargine,Human Rec. Analog 100 Units/Ml 3 Ml Pen) 18 - 20 units SUBCUT DAILY [facility] Last Admin: 09/07/20 08:39 Dose: 20 units Documented by: Insulin Human Lispro (Insulin Lispro 100 Unit/Ml 3 Ml Kwikpen) 0 unit SUBCUT QIDACANDBED [facility]; Protocol Last Admin: 09/07/20 12:38 Dose: 2 units Documented by: Insulin Human Lispro (Insulin Lispro 100 Unit/Ml 3 Ml Kwikpen) 10 - 20 unit SUBCUT TID [facility] Melatonin (Melatonin 3 Mg Tab) 12 mg PO BEDTIME PRN PRN Reason: Other Last Admin: 09/04/20 21:21 Dose: 12 mg Documented by: Metoprolol Succinate (Metoprolol Succinate 50 Mg Tab.Er) 50 mg PO DAILY [facility] Last Admin: 09/05/20 08:48 Dose: 50 mg Documented by: Metoprolol Succinate (Metoprolol Succinate 50 Mg Tab.Er) 100 mg PO DAILY [facility] Last Admin: 09/07/20 08:37 Dose: 100 mg Documented by: Mirtazapine (Mirtazapine 15 Mg Tab) 15 mg PO QPM [facility] Mirtazapine (Mirtazapine 15 Mg Tab) 15 mg PO DAILY@1999 [facility] Last Admin: 09/06/20 21:01 Dose: 15 mg Documented by: Nitroglycerin (Nitroglycerin 0.4 Mg Tab.Sl) 0.4 mg SL ASDIRECTED PRN PRN Reason: Chest Pain Pantoprazole Sodium (Pantoprazole 40 Mg Tab.Cr) 40 mg PO ACBREAKFAST [facility] Last Admin: 09/07/20 08:36 Dose: 40 mg Documented by: Trazodone HCl (Trazodone 50 Mg Tab) 200 mg PO BEDTIME [facility] Last Admin: 09/06/20 21:01 Dose: 200 mg Documented by: - Exam General: Alert, Oriented HEENT: Pupils Equal, Pupils Reactive, EOMI, Mucous Membr. Moist/[place] Neck: Supple Lungs: Clear to Auscultation, Normal Respiratory Effort Cardiovascular: Regular Rate, Regular Rhythm GI/Abdominal Exam: Tender Back Exam: Vertebral Tenderness Extremities: Normal Inspection, Normal Range of Motion, Non-Tender, No Pedal Edema, Normal Capillary Refill Skin: Warm, Dry, Intact Psy/Mental Status: Alert, Normal Affect, Normal Mood - Patient Data Lab Results Last 24 hrs: Laboratory Results - last 24 hr 09/07/20 09/07/20 09/07/20 Range/Units 07:24 07:35 07:35 WBC 6.2 (4.5-11.0) K/uL RBC 5.03 (3.30-5.50) M/uL Hgb 15.1 H (12.0-15.0) g/dL Hct 43.1 (36.0-48.0) % MCV 86 (80-98) fL MCH 30 (27-31) pg MCHC 35 (32-36) % Plt Count 247 (150-400) K/uL Neut % (Auto) 53.1 (36-66) % Lymph % (Auto) 38.2 (24-44) % [place] % (Auto) 6.5 H (2-6) % Eos % (Auto) 1.9 L (2-4) % Baso % (Auto) 0.3 (0-1) % Sodium 139 L (140-148) mmol/L Potassium 3.8 (3.6-5.2) mmol/L Chloride 100 (100-108) mmol/L Carbon Dioxide 25 (21-32) mmol/L Anion Gap 17.8 H (5.0-14.0) mmol/L BUN 17 (7-18) mg/dL Creatinine 0.7 (0.6-1.0) mg/dL Est Cr Clr Drug Dosing 68.02 mL/min Estimated GFR (MDRD) > 60 (>60) Glucose 121 H (74-106) mg/dL POC Glucose 115 H (74-106) mg/dL Calcium 9.5 D (8.5-10.1) mg/dL 09/07/20 Range/Units 11:53 WBC (4.5-11.0) K/uL RBC (3.30-5.50) M/uL Hgb (12.0-15.0) g/dL Hct (36.0-48.0) % MCV (80-98) fL MCH (27-31) pg MCHC (32-36) % Plt Count (150-400) K/uL Neut % (Auto) (36-66) % Lymph % (Auto) (24-44) % [place] % (Auto) (2-6) % Eos % (Auto) (2-4) % Baso % (Auto) (0-1) % Sodium (140-148) mmol/L Potassium (3.6-5.2) mmol/L Chloride (100-108) mmol/L Carbon Dioxide (21-32) mmol/L Anion Gap (5.0-14.0) mmol/L BUN (7-18) mg/dL Creatinine (0.6-1.0) mg/dL Est Cr Clr Drug Dosing mL/min Estimated GFR (MDRD) (>60) Glucose (74-106) mg/dL POC Glucose 236 H (74-106) mg/dL Calcium (8.5-10.1) mg/dL Result Diagrams: 09/07/20 07:35 09/07/20 07:35 Sepsis Event Note - Evaluation Sepsis Screening Result: No Definite Risk - Focused Exam Vital Signs: Vital Signs Pulse Resp BP Pulse Ox 09/07/20 12:11 73 16 148/86 H 99 09/07/20 12:09 69 16 162/76 H 98 - Problem List Review Problem List Initiated/Reviewed/Updated: Yes - Plan Plan:: Assessment/plan: #1. Hypertension: When she came in she had overdosed on meds for BP as her BP was low. She is not safe handling her own medication without help. She needs to be in an assisted living facility ideally. She is unable to get that arranged presently. BP before discharge was 148/86 pulse of 73. #2. Diabetes type 2 she is poor control with a blood sugar 143 to236 today before discharge. Again living in a senior care is essential. #3. She does have chronic back pain but not her acute problem presently. #4. COPD: This is a chronic condition secondary to her nicotine addiction. She needs to stop her smoking. #5. Atherosclerotic heart disease: This is stable at the present time. history of myocardial infarction 2000 #6. History of Crohn's disease with colostomy in place: #7. GERD: #8. Degenerative joint disease #9. Nicotine addiction: She is to start a nicotine patch. #10. Allergies: Ibuprofen, erythromycin, Talwin, vancomycin, amoxicillin, Biaxin, Cipro, metformin, morphine, penicillin, Bentyl. #11. History of mitral valve prolapse: #12. Lung lump: Need to repeat the CT in 3 months. #13: Surgical history: Tonsillectomy, appendectomy, hysterectomy, lumbar spine surgery, thrombosis lower leg, carpal tunnel, colorectal resection with colostomy, percutaneous transluminal angioplasty, coagulation of subclavian artery, repositioning of colostomy with repair from a pericolostomy hernia, closure of rectovaginal fistula, diagnostic laparotomy with repair of recurrent incisional hernia with mesh and umbilical hernia repair and replacement of Vicryl mesh for extensive intra-abdominal adhesions 2015. Home today and will see in the office in 2 days and to bring her blood sugar reading.
--- NOTE | 2020-09-07 22:33 | PCM.DCSUM1 ---
Discharge Summary - Hospital Course Brief History: Audrey is a 64-year-old female who came into the office the day before admission with blood pressure 200/115. Her blood sugar was 375 and said she hadn't eaten for over 8 hours. She was supposed to be taking insulin but stopped taking it because she was having trouble swallowing. She was confused about taking her medicine. She was also not taking her blood sugars. I asked her to come back the next day and to bring all of her medicine and her blood sugar monitor and she brought only a slip of paper listing her medicines. Her blood sugar was 298 and said she had taken Lantus before she came in. She has no short acting insulin. Her blood pressure the day if adnussuib was 74/58 with a heart rate of 101 I felt admission was imperative. She was unsure what medicine she took for hypertension. Diagnosis: Stroke: No - Discharge Data Discharge Date: 09/07/20 Discharge Disposition: Home, Self-Care 01 Condition: Fair - Referral to Home Health Primary Care Physician: Mehrdad Ward Sr, MD - Patient Summary/Data Hospital Course: She was seen by the environmental services assistant and instruction given but felt she is not safe to manage her own medicine for blood pressure or DM. She was dehydrated upon admission and was rehydrated with creatine coming down to below 1 at 0.8. Arrangements have been make to assist her with home cares and follow through on possible assist living when possible. - Patient Instructions Diet: Diabetic Diet Activity: As Tolerated - Discharge Plan *PRESCRIPTION DRUG MONITORING PROGRAM REVIEWED*: No *COPY OF PRESCRIPTION DRUG MONITORING REPORT IN PATIENT CAYLA: No Home Medications: Home Meds Melatonin 20 mg PO BEDTIME PRN 02/08/14 [History] Ezetimibe [Zetia] 10 mg PO DAILY 12/21/14 [History] Nitroglycerin [Nitrostat] 0.4 mg SL ASDIRECTED PRN 03/07/15 [History] Pantoprazole Sodium 40 mg PO DAILY 07/15/17 [History] traZODone HCl [Trazodone HCl] 200 mg PO BEDTIME 07/15/17 [History] Gabapentin [Neurontin] 400 mg PO QID 07/22/17 [History] Insulin Glargine,Hum.Rec.Anlog [Lantus Solostar] 18 - 20 unit SQ DAILY 07/29/18 [History] Mirtazapine 15 mg PO QPM 07/29/18 [History] Dapagliflozin Propanediol [Farxiga] 10 mg PO DAILY 09/04/20 [History] Cyclobenzaprine HCl 10 mg PO TID PRN 09/05/20 [History] Cyclobenzaprine [Flexeril] 10 mg PO Q8H PRN tablet 09/07/20 [Rx] Metoprolol Succinate 100 mg PO DAILY #0 09/07/20 [Rx] Referrals: Tiffany Cobb RN [Registered Nurse] - 09/17/20 1:00 pm (Please arrive 15 minutes before your appointment time. Bring blood sugar log book and glucose meter with to your appointment.) - Discharge Summary/Plan Comment DC Time >30 min.: Yes Discharge Summary/Plan Comment: Assessment/plan: #1. Hypertension: When she came in she had overdosed on meds for BP as her BP was low. She is not safe handling her own medication without help. She needs to be in an assisted living facility ideally. She is unable to get that arranged presently. BP before discharge was 148/86 pulse of 73. I have increased her metoprolol and will follow in the office and adjust her medicine to get good control of her BP. #2. Diabetes type 2 she is poor control with a blood sugar 143 to236 today before discharge. Again living in a longterm is essential. I feel she is not safe taking short acting insulin and will send her home on 20 units of Lantus. She is also to see a DM educator. #3. She does have chronic back pain but not her acute problem presently. #4. COPD: This is a chronic condition secondary to her nicotine addiction. She needs to stop her smoking. #5. Atherosclerotic heart disease: This is stable at the present time. history of myocardial infarction 2000 #6. History of Crohn's disease with colostomy in place: #7. GERD: #8. Degenerative joint disease #9. Nicotine addiction: She is to start a nicotine patch. #10. Allergies: Ibuprofen, erythromycin, Talwin, vancomycin, amoxicillin, Biaxin, Cipro, metformin, morphine, penicillin, Bentyl. #11. History of mitral valve prolapse: #12. Lung lump: Need to repeat the CT in 3 months. #13: Surgical history: Tonsillectomy, appendectomy, hysterectomy, lumbar spine surgery, thrombosis lower leg, carpal tunnel, colorectal resection with colostomy, percutaneous transluminal angioplasty, coagulation of subclavian artery, repositioning of colostomy with repair from a pericolostomy hernia, closure of rectovaginal fistula, diagnostic laparotomy with repair of recurrent incisional hernia with mesh and umbilical hernia repair and replacement of Vicryl mesh for extensive intra-abdominal adhesions 2014. Home today and will see in the office in 2 days and to bring her blood sugar r becca. - General Info Date of Service: 09/07/20 - Review of Systems General: Reports: Weakness HEENT: Reports: No Symptoms Pulmonary: Reports: No Symptoms Cardiovascular: Reports: No Symptoms Gastrointestinal: Reports: No Symptoms Genitourinary: Reports: No Symptoms Musculoskeletal: Reports: Back Pain Skin: Reports: No Symptoms Neurological: Reports: No Symptoms Psychiatric: Reports: Anxiety - Patient Data Vitals - Most Recent: Last Vital Signs Temp 96.7 F L 09/07/20 07:00 Pulse 73 09/07/20 12:11 Resp 16 09/07/20 12:11 BP 148/86 H 09/07/20 12:11 Pulse Ox 99 09/07/20 12:11 Weight - Most Recent: 158 lb 0.014 oz I&O - Last 24 hours: Intake & Output 09/07/20 09/07/20 09/07/20 06:59 14:59 22:59 Intake Total 600 Balance 600 Lab Results - Last 24 hrs: Laboratory Results - last 24 hr 09/07/20 09/07/20 09/07/20 Range/Units 07:24 07:35 07:35 WBC 6.2 (4.5-11.0) K/uL RBC 5.03 (3.30-5.50) M/uL Hgb 15.1 H (12.0-15.0) g/dL Hct 43.1 (36.0-48.0) % MCV 86 (80-98) fL MCH 30 (27-31) pg MCHC 35 (32-36) % Plt Count 247 (150-400) K/uL Neut % (Auto) 53.1 (36-66) % Lymph % (Auto) 38.2 (24-44) % [place] % (Auto) 6.5 H (2-6) % Eos % (Auto) 1.9 L (2-4) % Baso % (Auto) 0.3 (0-1) % Sodium 139 L (140-148) mmol/L Potassium 3.8 (3.6-5.2) mmol/L Chloride 100 (100-108) mmol/L Carbon Dioxide 25 (21-32) mmol/L Anion Gap 17.8 H (5.0-14.0) mmol/L BUN 17 (7-18) mg/dL Creatinine 0.7 (0.6-1.0) mg/dL Est Cr Clr Drug Dosing 68.02 mL/min Estimated GFR (MDRD) > 60 (>60) Glucose 121 H (74-106) mg/dL POC Glucose 115 H (74-106) mg/dL Calcium 9.5 D (8.5-10.1) mg/dL 09/07/20 Range/Units 11:53 WBC (4.5-11.0) K/uL RBC (3.30-5.50) M/uL Hgb (12.0-15.0) g/dL Hct (36.0-48.0) % MCV (80-98) fL MCH (27-31) pg MCHC (32-36) % Plt Count (150-400) K/uL Neut % (Auto) (36-66) % Lymph % (Auto) (24-44) % [place] % (Auto) (2-6) % Eos % (Auto) (2-4) % Baso % (Auto) (0-1) % Sodium (140-148) mmol/L Potassium (3.6-5.2) mmol/L Chloride (100-108) mmol/L Carbon Dioxide (21-32) mmol/L Anion Gap (5.0-14.0) mmol/L BUN (7-18) mg/dL Creatinine (0.6-1.0) mg/dL Est Cr Clr Drug Dosing mL/min Estimated GFR (MDRD) (>60) Glucose (74-106) mg/dL POC Glucose 236 H (74-106) mg/dL Calcium (8.5-10.1) mg/dL Med Orders - Current: Current Medications Discontinued Medications Cyclobenzaprine HCl (Cyclobenzaprine 10 Mg Tab) 10 mg PO Q8H PRN PRN Reason: Spasms Last Admin: 09/07/20 08:35 Dose: 10 mg Documented by: Dextrose/Water (50% Dextrose In Water 50 Ml Syringe) 50 ml IVPUSH ASDIRECTED PRN PRN Reason: Hypoglycemia Ezetimibe (Ezetimibe 10 Mg Tab) 10 mg PO DAILY [facility] Last Admin: 09/07/20 08:38 Dose: 10 mg Documented by: Gabapentin (Gabapentin 400 Mg Cap) 400 mg PO QID [facility] Last Admin: 09/07/20 10:34 Dose: 400 mg Documented by: Gabapentin (Gabapentin 400 Mg Cap) 400 mg PO ONETIME ONE Stop: 09/04/20 19:16 Last Admin: 09/04/20 19:28 Dose: 400 mg Documented by: Gabapentin (Gabapentin 400 Mg Cap) Confirm Administered Dose 400 mg .ROUTE .STK- MED ONE Stop: 09/05/20 03:52 Last Admin: 09/05/20 03:59 Dose: Not Given Documented by: Glucagon (Glucagon,Human Recombinant 1 Mg Vial) 1 mg IM ASDIRECTED PRN PRN Reason: Hypoglycemia Sodium Chloride (Normal Saline) 1,000 mls @ 125 mls/hr IV ASDIRECTED [facility] Last Admin: 09/05/20 14:47 Dose: 125 mls/hr Documented by: Sodium Chloride (Normal Saline) 1,000 mls @ 999 mls/hr IV .BOLUS ONE Stop: 09/04/20 14:18 Last Admin: 09/04/20 14:28 Dose: 999 mls/hr Documented by: Insulin Glargine (Insulin Glargine,Human Rec. Analog 100 Units/Ml 3 Ml Pen) 18 - 20 units SUBCUT DAILY [facility] Last Admin: 09/07/20 08:39 Dose: 20 units Documented by: Insulin Human Lispro (Insulin Lispro 100 Unit/Ml 3 Ml Kwikpen) 0 unit SUBCUT QIDACANDBED [facility]; Protocol Last Admin: 09/07/20 12:38 Dose: 2 units Documented by: Insulin Human Lispro (Insulin Lispro 100 Unit/Ml 3 Ml Kwikpen) 10 - 20 unit SUBCUT TID [facility] Melatonin (Melatonin 3 Mg Tab) 12 mg PO BEDTIME PRN PRN Reason: Other Last Admin: 09/04/20 21:21 Dose: 12 mg Documented by: Metoprolol Succinate (Metoprolol Succinate 50 Mg Tab.Er) 50 mg PO DAILY [facility] Last Admin: 09/05/20 08:48 Dose: 50 mg Documented by: Metoprolol Succinate (Metoprolol Succinate 50 Mg Tab.Er) 100 mg PO DAILY [facility] Last Admin: 09/07/20 08:37 Dose: 100 mg Documented by: Mirtazapine (Mirtazapine 15 Mg Tab) 15 mg PO QPM [facility] Mirtazapine (Mirtazapine 15 Mg Tab) 15 mg PO DAILY@1999 [facility] Last Admin: 09/06/20 21:01 Dose: 15 mg Documented by: Nitroglycerin (Nitroglycerin 0.4 Mg Tab.Sl) 0.4 mg SL ASDIRECTED PRN PRN Reason: Chest Pain Pantoprazole Sodium (Pantoprazole 40 Mg Tab.Cr) 40 mg PO ACBREAKFAST [facility] Last Admin: 09/07/20 08:36 Dose: 40 mg Documented by: Trazodone HCl (Trazodone 50 Mg Tab) 200 mg PO BEDTIME [facility] Last Admin: 09/06/20 21:01 Dose: 200 mg Documented by: - Exam General: Reports: Alert, Oriented HEENT: Reports: Pupils Equal, Pupils Reactive, EOMI, Mucous Membr. Moist/[place] Neck: Reports: Supple Lungs: Reports: Clear to Auscultation, Normal Respiratory Effort Cardiovascular: Reports: Regular Rate, Regular Rhythm GI/Abdominal Exam: Tender Back Exam: Reports: Vertebral Tenderness Extremities: Non-Tender Skin: Reports: Warm, Dry, Intact Neurological: Reports: No New Focal Deficit Psy/Mental Status: Reports: Anxious
== END 2020-09-07 15:13 | disposition home or self-care (01) | DRG 918 ==
LOC: JP.MS 12:50
PROVIDERS: ADMIT Internal Medicine; ATTEND Internal Medicine
DX: T46.5X1A Poisoning by other antihypertensive drugs, accidental (unintentional), initial encounter (principal); I95.2 Hypotension due to drugs; E86.0 Dehydration; E11.65 Type 2 diabetes mellitus with hyperglycemia; I10 Essential (primary) hypertension; M54.9 Dorsalgia, unspecified; G89.29 Other chronic pain; J44.9 Chronic obstructive pulmonary disease, unspecified; I25.10 Atherosclerotic heart disease of native coronary artery without angina pectoris; K21.9 Gastro-esophageal reflux disease without esophagitis; R91.1 Solitary pulmonary nodule; H54.7 Unspecified visual loss; E78.00 Pure hypercholesterolemia, unspecified; M81.0 Age-related osteoporosis without current pathological fracture; M19.90 Unspecified osteoarthritis, unspecified site; F41.0 Panic disorder [episodic paroxysmal anxiety]; F32.9 Major depressive disorder, single episode, unspecified; E66.9 Obesity, unspecified; F43.10 Post-traumatic stress disorder, unspecified; D64.9 Anemia, unspecified; F17.200 Nicotine dependence, unspecified, uncomplicated; K52.9 Noninfective gastroenteritis and colitis, unspecified; I25.2 Old myocardial infarction; Z88.6 Allergy status to analgesic agent; Z88.1 Allergy status to other antibiotic agents; Z88.0 Allergy status to penicillin; Z88.5 Allergy status to narcotic agent; Z88.8 Allergy status to other drugs, medicaments and biological substances; Z90.710 Acquired absence of both cervix and uterus; Z90.49 Acquired absence of other specified parts of digestive tract; Z88.2 Allergy status to sulfonamides; Z79.4 Long term (current) use of insulin; Z79.899 Other long term (current) drug therapy; Z86.718 Personal history of other venous thrombosis and embolism; Z87.442 Personal history of urinary calculi; Z68.28 Body mass index [BMI] 28.0-28.9, adult
CPT/HCPCS: 36415; 71046; 71250; 71250-26; 80048; 80053; 81001; 82947; 83036; 85025; A9270-GY; J1815; J1815-GY; J7030

== ENCOUNTER 2021-03-07 14:40 | Emergency (ER) | payer MEDICARE, MEDICAID ==
[2021-03-07] MEDS ORDERED: Acetaminophen/HYDROcodone 325-5 MG Tab PO ONE (15:08)
--- NOTE | 2021-03-07 15:14 | EDM.PDOC ---
ED HPI GENERAL MEDICAL PROBLEM - General Chief Complaint: Lower Extremity Injury/Pain Stated Complaint: R ANKLE INJURY Time Seen by Provider: 03/07/21 14:55 Source of Information: Reports: Patient History Limitations: Reports: No Limitations - History of Present Illness INITIAL COMMENTS - FREE TEXT/NARRATIVE: 65 yo female with a hx of spinal stenosis says she falls often. She now has R lateral ankle pain and bruising as well as L knee pain from separate falls. Is here with her son. None of these injuries were from today. Son says his mother who lives alone has been delusional at times, not thinking normally for her. She is not a drinker. Does have a pHx of UTI's. [facility]. Seems to be getting worse lately. Sees Dr. Ward, but not lately. Has a remote hx of hospitalization in a mental hospital. 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 gentamicin [Gentamicin] Allergy Severe anaphylaxis, Verified 08/03/18 09:44 resp. distress vancomycin Allergy Severe anaphylaxis Verified 08/03/18 09:44 amoxicillin [Amoxicillin] Allergy Intermediate generalized Verified 08/03/18 09:44 rash ciprofloxacin Allergy Intermediate rash and Verified 08/03/18 09:44 swelling clarithromycin [From Biaxin] Allergy Intermediate generalized Verified 08/03/18 09:44 rash erythromycin base Allergy Intermediate Hives Verified 08/03/18 09:44 [Erythromycin Base] penicillin V [Penicillin V] Allergy Intermediate patchy-swollen Verified 08/03/18 09:44 skin pentazocine lactate Allergy Intermediate Hives Verified 08/03/18 09:44 [From Talwin] hyoscyamine sulfate Allergy Unknown Cannot Verified 08/03/18 09:44 [From Levsin] Remember Sulfa (Sulfonamide Allergy Unknown Cannot Verified 08/03/18 09:44 Antibiotics) Remember cyclobenzaprine HCl Allergy Cannot Verified 08/03/18 09:44 [From Flexeril] Remember NSAIDS (Non-Steroidal Allergy Cannot Verified 08/03/18 09:44 Anti-Inflamma Remember ondansetron HCl Allergy Cannot Verified 08/03/18 09:44 [From Zofran (as Remember hydrochloride)] morphine AdvReac Intermediate Vomiting Verified 08/03/18 09:44 cough syrup Allergy Cannot Uncoded 08/03/18 09:44 Remember Home Meds: Home Meds Melatonin 20 mg PO BEDTIME PRN 02/08/14 [History] Ezetimibe [Zetia] 10 mg PO DAILY 12/21/14 [History] Nitroglycerin [Nitrostat] 0.4 mg SL ASDIRECTED PRN 03/07/15 [History] Pantoprazole Sodium 40 mg PO DAILY 07/15/17 [History] traZODone HCl [Trazodone HCl] 200 mg PO BEDTIME 07/15/17 [History] Gabapentin [Neurontin] 400 mg PO QID 07/22/17 [History] Insulin Glargine,Hum.Rec.Anlog [Lantus Solostar] 18 - 20 unit SQ DAILY 07/29/18 [History] Mirtazapine 15 mg PO QPM 07/29/18 [History] Dapagliflozin Propanediol [Farxiga] 10 mg PO DAILY 09/04/20 [History] Cyclobenzaprine HCl 10 mg PO TID PRN 09/05/20 [History] Metoprolol Succinate 100 mg PO DAILY #0 09/07/20 [Rx] Acetaminophen/HYDROcodone [HYDROcodone-Acetaminophen 5-325 MG *] 1 tab PO Q4H PRN #12 each 03/07/21 [Rx] Past Medical History HEENT History: Reports: Impaired Vision Cardiovascular History: Reports: Afib, Angina, Arrhythmia, Blood Clots/VTE/DVT, CAD, High Cholesterol, Hypertension, VA, Other (See Below) Other Cardiovascular History: DVT cardiac arrest Mitral valve prolapse [place] TransiuminL ANGIOPLASTY Respiratory History: Reports: Asthma, Bronchitis, Recurrent, COPD, Intubation, Previous, Pneumothorax, SOB, Other (See Below) Other Respiratory History: pleursey Gastrointestinal History: Reports: Bowel Obstruction, Chronic Diarrhea, GI Bleed, Hemorrhoids, Hiatal Hernia, Jaundice, Other (See Below) Other Gastrointestinal History: chrohns disease, polyps Genitourinary History: Reports: Renal Calculus Other Genitourinary History: ileostomy 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: Dysfunctional Uterine Bleeding, Fibroids, , Spontaneous Musculoskeletal History: Reports: Back Pain, Chronic, Fracture, Fibromyalgia, Osteoarthritis, Osteoporosis, Other (See Below) Other Musculoskeletal History: bone spurs on feet Neurological History: Reports: Concussion, Headaches, Chronic, Head Trauma, Migraines, Seizure Psychiatric History: Reports: Anxiety, Depression, Panic Attack, PTSD Endocrine/Metabolic History: Reports: Diabetes, Type II, Obesity/BMI 30+, Osteoporosis Other Endocrine/Metabolic History: lupus Hematologic History: Reports: Anemia Immunologic History: Reports: Other (See Below) Other Immunologic History: Lupus Oncologic (Cancer) History: Reports: Colon Dermatologic History: Reports: Cellulitis - Infectious Disease History Infectious Disease History: Reports: Chicken Pox, Shingles - Past Surgical History HEENT Surgical History: Reports: Tonsillectomy Other HEENT Surgeries/Procedures: oral surgery GI Surgical History: Reports: Appendectomy, Colon, Colonoscopy, Colostomy, EGD, Hernia, Abdominal, Hernia, Inguinal, Hernia Repair/Other, Other (See Below) Other GI Surgeries/Procedures: 8 abdomenal surgeries, ileostomy Female Surgical History: Reports: D&C, Hysterectomy, Other (See Below) Other Female Surgeries/Procedures: fistula, "tear in my bladder" after procedure Neurological Surgical History: Reports: Lumbar Spine Musculoskeletal Surgical History: Reports: Arthroscopic Knee, Shoulder Surgery, Other (See Below) Other Musculoskeletal Surgeries/Procedures:: Spinal fusion Oncologic Surgical History: Reports: Other (See Below) Other Oncologic Surgeries/Procedures: left colol resection for colon mass Social & Family History - Family History Family Medical History: Unobtainable - Caffeine Use Caffeine Use: Reports: Coffee, Soda Review of Systems - Review of Systems Review Of Systems: See Below Constitutional: Reports: No Symptoms Musculoskeletal: Reports: Joint Pain (R ankle and L knee), Joint Swelling (R ankle) Skin: Reports: Bruising (R lateral ankle) Neurological: Reports: No Symptoms ED EXAM, GENERAL - Physical Exam Exam: See Below Exam Limited By: No Limitations General Appearance: Alert, WD/WN, No Apparent Distress Extremities: Normal Inspection (L knee looks grossly normal, R ankle is grossly abnormal), Joint Swelling (R ankle laterally), Limited Range of Motion (L knee and R ankle). No: Normal Range of Motion, Non-Tender, No Pedal Edema (R lateral ankle swollen, not the L knee), Increased Warmth Neurological: Alert, Oriented, CN II-XII Intact, Normal Cognition, No Motor/Sensory Deficits Psychiatric: Normal Affect, Normal Mood Skin Exam: Warm, Dry, Intact, No Rash, Ecchymosis (R lateral ankle) Course - Vital Signs Last Recorded V/S: Last Vital Signs Temp 36.4 C 03/07/21 15:01 Pulse 106 H 03/07/21 17:08 Resp 20 03/07/21 16:05 BP 143/83 H 03/07/21 17:08 Pulse Ox 98 03/07/21 17:08 - Orders/Labs/Meds Orders: Active Orders 24 hr Category Date Time Status Consult to Orthopedic Clinic [CONS] Routine Cons 03/07/21 17:16 Ordered Sodium Chloride 0.9% [Normal Saline] 1,000 ml Med 03/07/21 16:29 Active IV .BOLUS Medication Orders Sodium Chloride (Normal Saline) 1,000 mls @ 1,000 mls/hr IV .BOLUS ONE Stop: 03/07/21 17:28 Last Admin: 03/07/21 16:45 Dose: 1,000 mls/hr Documented by: PREILOR Labs: Laboratory Tests 03/07/21 03/07/21 03/07/21 Range/Units 15:30 15:35 15:50 WBC 14.3 H (4.5-11.0) K/uL RBC 5.41 (3.30-5.50) M/uL Hgb 15.8 H (12.0-15.0) g/dL Hct 46.7 (36.0-48.0) % MCV 86 (80-98) fL MCH 29 (27-31) pg MCHC 34 (32-36) % Plt Count 396 (150-400) K/uL Sodium (140-148) mmol/L Potassium (3.6-5.2) mmol/L Chloride (100-108) mmol/L Carbon Dioxide (21-32) mmol/L Anion Gap (5.0-14.0) mmol/L BUN (7-18) mg/dL Creatinine (0.6-1.0) mg/dL Est Cr Clr Drug Dosing mL/min Estimated GFR (MDRD) (>60) Glucose (74-106) mg/dL Calcium (8.5-10.1) mg/dL Total Bilirubin (0.2-1.0) mg/dL AST (15-37) U/L ALT (12-78) U/L Alkaline Phosphatase (46-116) U/L Troponin I High Sens (<=60.3) pg/mL C-Reactive Protein (0.0-0.3) mg/dL Total Protein (6.4-8.2) g/dL Albumin (3.4-5.0) g/dL Globulin (2.3-3.5) g/dL Albumin/Globulin Ratio (1.2-2.2) TSH, Ultra Sensitive (0.358-3.740) uIU/mL Urine Color Yellow (YELLOW) Urine Appearance Cloudy A (CLEAR) Urine pH 5.5 (5.0-8.0) Ur Specific [place] >= 1.030 (1.008-1.030) Urine Protein Trace H (NEGATIVE) mg/dL Urine Glucose (UA) 500 H (NEGATIVE) mg/dL Urine Ketones 80 H (NEGATIVE) mg/dL Urine Occult Blood Negative (NEGATIVE) Urine Nitrite Negative (NEGATIVE) Urine Bilirubin Moderate H (NEGATIVE) Urine Urobilinogen 0.2 (0.2-1.0) EU/dL Ur Leukocyte Esterase Negative (NEGATIVE) Urine RBC 0-5 (0-5) Urine WBC 5-10 H (0-5) Ur Epithelial Cells Many Amorphous Sediment Not seen Urine Bacteria Many Urine Mucus Not seen Urine Opiates Screen Negative (NEGATIVE) Ur Oxycodone Screen Negative (NEGATIVE) Urine Methadone Screen Negative (NEGATIVE) Ur Propoxyphene Screen Negative (NEGATIVE) Ur Barbiturates Screen Negative (NEGATIVE) Ur Tricyclics Screen Presumptive positive H (NEGATIVE) Ur Phencyclidine Scrn Negative (NEGATIVE) Ur Amphetamine Screen Negative (NEGATIVE) U Methamphetamines Scrn Negative (NEGATIVE) Urine MDMA Screen Negative (NEGATIVE) U Benzodiazepines Scrn Negative (NEGATIVE) U Cocaine Metab Screen Negative (NEGATIVE) U Marijuana (THC) Screen Negative (NEGATIVE) Ethyl Alcohol mg/dL SARS CoV-2 RNA Rapid ZANDER 03/07/21 03/07/21 03/07/21 Range/Units 15:50 15:50 15:50 WBC (4.5-11.0) K/uL RBC (3.30-5.50) M/uL Hgb (12.0-15.0) g/dL Hct (36.0-48.0) % MCV (80-98) fL MCH (27-31) pg MCHC (32-36) % Plt Count (150-400) K/uL Sodium 133 L (140-148) mmol/L Potassium 4.9 (3.6-5.2) mmol/L Chloride 95 L (100-108) mmol/L Carbon Dioxide 19 L (21-32) mmol/L Anion Gap 23.9 H (5.0-14.0) mmol/L BUN 30 H D (7-18) mg/dL Creatinine 1.8 H D (0.6-1.0) mg/dL Est Cr Clr Drug Dosing 26.69 mL/min Estimated GFR (MDRD) 28 L (>60) Glucose 211 H (74-106) mg/dL Calcium 10.3 H (8.5-10.1) mg/dL Total Bilirubin 0.5 (0.2-1.0) mg/dL AST 24 (15-37) U/L ALT 34 (12-78) U/L Alkaline Phosphatase 106 (46-116) U/L Troponin I High Sens 11.7 (<=60.3) pg/mL C-Reactive Protein (0.0-0.3) mg/dL Total Protein 8.5 H (6.4-8.2) g/dL Albumin 4.1 (3.4-5.0) g/dL Globulin 4.4 H (2.3-3.5) g/dL Albumin/Globulin Ratio 0.9 L (1.2-2.2) TSH, Ultra Sensitive 1.024 (0.358-3.740) uIU/mL Urine Color (YELLOW) Urine Appearance (CLEAR) Urine pH (5.0-8.0) Ur Specific [place] (1.008-1.030) Urine Protein (NEGATIVE) mg/dL Urine Glucose (UA) (NEGATIVE) mg/dL Urine Ketones (NEGATIVE) mg/dL Urine Occult Blood (NEGATIVE) Urine Nitrite (NEGATIVE) Urine Bilirubin (NEGATIVE) Urine Urobilinogen (0.2-1.0) EU/dL Ur Leukocyte Esterase (NEGATIVE) Urine RBC (0-5) Urine WBC (0-5) Ur Epithelial Cells Amorphous Sediment Urine Bacteria Urine Mucus Urine Opiates Screen (NEGATIVE) Ur Oxycodone Screen (NEGATIVE) Urine Methadone Screen (NEGATIVE) Ur Propoxyphene Screen (NEGATIVE) Ur Barbiturates Screen (NEGATIVE) Ur Tricyclics Screen (NEGATIVE) Ur Phencyclidine Scrn (NEGATIVE) Ur Amphetamine Screen (NEGATIVE) U Methamphetamines Scrn (NEGATIVE) Urine MDMA Screen (NEGATIVE) U Benzodiazepines Scrn (NEGATIVE) U Cocaine Metab Screen (NEGATIVE) U Marijuana (THC) Screen (NEGATIVE) Ethyl Alcohol < 3 mg/dL SARS CoV-2 RNA Rapid ZANDER 03/07/21 03/07/21 Range/Units 16:30 16:44 WBC (4.5-11.0) K/uL RBC (3.30-5.50) M/uL Hgb (12.0-15.0) g/dL Hct (36.0-48.0) % MCV (80-98) fL MCH (27-31) pg MCHC (32-36) % Plt Count (150-400) K/uL Sodium (140-148) mmol/L Potassium (3.6-5.2) mmol/L Chloride (100-108) mmol/L Carbon Dioxide (21-32) mmol/L Anion Gap (5.0-14.0) mmol/L BUN (7-18) mg/dL Creatinine (0.6-1.0) mg/dL Est Cr Clr Drug Dosing mL/min Estimated GFR (MDRD) (>60) Glucose (74-106) mg/dL Calcium (8.5-10.1) mg/dL Total Bilirubin (0.2-1.0) mg/dL AST (15-37) U/L ALT (12-78) U/L Alkaline Phosphatase (46-116) U/L Troponin I High Sens (<=60.3) pg/mL C-Reactive Protein 2.67 H (0.0-0.3) mg/dL Total Protein (6.4-8.2) g/dL Albumin (3.4-5.0) g/dL Globulin (2.3-3.5) g/dL Albumin/Globulin Ratio (1.2-2.2) TSH, Ultra Sensitive (0.358-3.740) uIU/mL Urine Color (YELLOW) Urine Appearance (CLEAR) Urine pH (5.0-8.0) Ur Specific [place] (1.008-1.030) Urine Protein (NEGATIVE) mg/dL Urine Glucose (UA) (NEGATIVE) mg/dL Urine Ketones (NEGATIVE) mg/dL Urine Occult Blood (NEGATIVE) Urine Nitrite (NEGATIVE) Urine Bilirubin (NEGATIVE) Urine Urobilinogen (0.2-1.0) EU/dL Ur Leukocyte Esterase (NEGATIVE) Urine RBC (0-5) Urine WBC (0-5) Ur Epithelial Cells Amorphous Sediment Urine Bacteria Urine Mucus Urine Opiates Screen (NEGATIVE) Ur Oxycodone Screen (NEGATIVE) Urine Methadone Screen (NEGATIVE) Ur Propoxyphene Screen (NEGATIVE) Ur Barbiturates Screen (NEGATIVE) Ur Tricyclics Screen (NEGATIVE) Ur Phencyclidine Scrn (NEGATIVE) Ur Amphetamine Screen (NEGATIVE) U Methamphetamines Scrn (NEGATIVE) Urine MDMA Screen (NEGATIVE) U Benzodiazepines Scrn (NEGATIVE) U Cocaine Metab Screen (NEGATIVE) U Marijuana (THC) Screen (NEGATIVE) Ethyl Alcohol mg/dL SARS CoV-2 RNA Rapid ZANDER Negative Meds: Medications Generic Name Dose Route Start Last Admin Trade Name Freq PRN Reason Stop Dose Admin Sodium Chloride 1,000 mls @ 1,000 mls/hr 03/07/21 16:29 03/07/21 16:45 Normal Saline IV 03/07/21 17:28 1,000 mls/hr .BOLUS ONE Administration Discontinued Medications Generic Name Dose Route Start Last Admin Trade Name Freq PRN Reason Stop Dose Admin Hydrocodone Bitart/Acetaminophen 1 tab 03/07/21 15:08 03/07/21 15:27 Acetaminophen/Hydrocodone 325-5 Mg Tab PO 03/07/21 15:09 1 tab ONETIME ONE Administration Mirtazapine 15 mg 03/07/21 21:00 Mirtazapine 15 Mg Tab PO BEDTIME MARYBETH - Radiology Interpretation Free Text/Narrative:: L knee X-ray-neg R ankle [id number] distal fibula fx Departure - Departure Time of Disposition: 17:50 Disposition: Home, Self-Care 01 Condition: Fair Clinical Impression: Mild dehydration, Fall in elderly patient, Hyponatremia Fracture of distal end of right fibula Qualifiers: Encounter type: initial encounter Fracture type: closed Fracture morphology: other fracture Qualified Code(s): S82.831A - Other fracture of upper and lower end of right fibula, initial encounter for closed fracture - Discharge Information *PRESCRIPTION DRUG MONITORING PROGRAM REVIEWED*: No *COPY OF PRESCRIPTION DRUG MONITORING REPORT IN PATIENT CAYLA: No Prescriptions: Acetaminophen/HYDROcodone [HYDROcodone-Acetaminophen 5-325 MG *] 1 tab PO Q4H PRN #12 each PRN Reason: Pain Referrals: Mehrdad Ward Sr, MD [Primary Care Provider] - Forms: ED Department Discharge Additional Instructions: Wear the Camwalker except to wash your foot. Someone from the orthopedic clinic will be contacting you to discuss your broken fibula. Take ibuprofen 400 mg every 6 hrs with food for pain relief. Add either acetaminophen OR hydro codone/APAP for added relief. F/U with Dr. Ed handley to discuss your overall frequent falls and intermittent confusion. Sepsis Event Note (ED) - Evaluation Sepsis Screening Result: No Definite Risk - Focused Exam Vital Signs: Vital Signs Temp Pulse Resp BP Pulse Ox 03/07/21 17:08 106 H 143/83 H 98 03/07/21 16:05 117 H 20 147/81 H 96 03/07/21 15:01 36.4 C 124 H 16 140/85 98 - My Orders Last 24 Hours: My Active Orders 03/07/21 16:29 Sodium Chloride 0.9% [Normal Saline] 1,000 ml IV .BOLUS 03/07/21 17:16 Consult to Orthopedic Clinic [CONS] Routine - Assessment/Plan Last 24 Hours: My Active Orders 03/07/21 16:29 Sodium Chloride 0.9% [Normal Saline] 1,000 ml IV .BOLUS 03/07/21 17:16 Consult to Orthopedic Clinic [CONS] Routine
--- NOTE | 2021-03-07 15:46 | CR ---
Ankle Min 3V Rt CLINICAL HISTORY: Fall FINDINGS: The soft tissues are mildly swollen. There is a nondisplaced oblique fracture of the distal fibula. Ankle mortise is anatomic Impression: Nondisplaced distal fibular fracture
--- NOTE | 2021-03-07 15:47 | CR ---
Knee 3V Lt CLINICAL HISTORY: Fall FINDINGS: No acute fracture or dislocation is noted. There are no osseous lesions. There is patellar spurring. Impression: No fracture Osteoarthritic change in the patellofemoral joint
[2021-03-07] MEDS ORDERED: Sodium Chloride 0.9% 1,000 ML IV ONE (16:29)
[2021-03-07 18:03] VITALS: BP 143/81; PULSE 99
[2021-03-07] MEDS ORDERED: Mirtazapine 15 MG Tab PO SCH (21:00)
== END 2021-03-07 18:04 | disposition home or self-care (01) ==
LOC: JP.ED 14:40
DX: S82.831A Other fracture of upper and lower end of right fibula, initial encounter for closed fracture (principal); E86.0 Dehydration; E87.1 Hypo-osmolality and hyponatremia; I25.10 Atherosclerotic heart disease of native coronary artery without angina pectoris; E78.00 Pure hypercholesterolemia, unspecified; I10 Essential (primary) hypertension; I25.2 Old myocardial infarction; Z88.1 Allergy status to other antibiotic agents; Z88.0 Allergy status to penicillin; Z88.8 Allergy status to other drugs, medicaments and biological substances; Z79.899 Other long term (current) drug therapy; Z79.4 Long term (current) use of insulin; Z20.822 Contact with and (suspected) exposure to COVID-19; W19.XXXA Unspecified fall, initial encounter
CPT/HCPCS: 36415; 73562; 73610; 80053; 80305; 80307; 81001; 84443; 84484; 85027; 86140; 99283; A9270; J7030; U0002

== ENCOUNTER 2021-03-11 10:11 | Emergency (ER) | payer MEDICARE, MEDICAID ==
[2021-03-11] MEDS ORDERED: Sodium Chloride 0.9% 10 ML Syringe FLUSH PRN (10:33)
[2021-03-11] MEDS ORDERED: Sodium Chloride 0.9% 1,000 ML IV ONE (10:33)
[2021-03-11] MEDS ORDERED: Metoprolol Succinate 50 MG Tab.ER PO ONE (10:37)
[2021-03-11] MEDS ORDERED: LORazepam 2 MG/ML SDV IVPUSH ONE (10:39)
--- NOTE | 2021-03-11 10:42 | EDM.PDOC ---
ED HPI GENERAL MEDICAL PROBLEM - General Chief Complaint: Cardiovascular Problem Stated Complaint: HEART PROBLEMS Time Seen by Provider: 03/11/21 10:25 Source of Information: Reports: Patient, Family, RN Notes Reviewed History Limitations: Reports: No Limitations - History of Present Illness INITIAL COMMENTS - FREE TEXT/NARRATIVE: 65-year-old female presents emergency department day complaint of palpitations, she states it started last night she had difficulty sleeping because she could feel that she does feel short of breath did have some nausea and vomiting this morning. Has also been having difficulty with her stability and has fallen multiple times was evaluated in the emergency department on the for an ankle injury Chest Pain Score (Numeric/FACES): 5 - Related Data Allergies Allergy/AdvReac Type Severity Reaction Status Date / Time dicyclomine HCl [From Bentyl] Allergy Severe anaphylaxis Verified 03/11/21 10:44 flurbiprofen [From Ansaid] Allergy Severe anaphylaxis, Verified 03/11/21 10:44 tongue swelling. gentamicin [Gentamicin] Allergy Severe anaphylaxis, Verified 03/11/21 10:44 resp. distress vancomycin Allergy Severe anaphylaxis Verified 03/11/21 10:44 amoxicillin [Amoxicillin] Allergy Intermediate generalized Verified 03/11/21 10:44 rash ciprofloxacin Allergy Intermediate rash and Verified 03/11/21 10:44 swelling clarithromycin [From Biaxin] Allergy Intermediate generalized Verified 03/11/21 10:44 rash erythromycin base Allergy Intermediate Hives Verified 03/11/21 10:44 [Erythromycin Base] penicillin V [Penicillin V] Allergy Intermediate patchy-swollen Verified 03/11/21 10:44 skin pentazocine lactate Allergy Intermediate Hives Verified 03/11/21 10:44 [From Talwin] hyoscyamine sulfate Allergy Unknown Cannot Verified 03/11/21 10:44 [From Levsin] Remember Sulfa (Sulfonamide Allergy Unknown Cannot Verified 03/11/21 10:44 Antibiotics) Remember cyclobenzaprine HCl Allergy Cannot Verified 03/11/21 10:44 [From Flexeril] Remember NSAIDS (Non-Steroidal Allergy Cannot Verified 03/11/21 10:44 Anti-Inflamma Remember ondansetron HCl Allergy Cannot Verified 03/11/21 10:44 [From Zofran (as Remember hydrochloride)] morphine AdvReac Intermediate Vomiting Verified 03/11/21 10:44 cough syrup Allergy Cannot Uncoded 08/03/18 09:44 Remember Home Meds: Home Meds Melatonin 20 mg PO BEDTIME PRN 02/08/14 [History] Ezetimibe [Zetia] 10 mg PO DAILY 12/21/14 [History] Nitroglycerin [Nitrostat] 0.4 mg SL ASDIRECTED PRN 03/07/15 [History] Pantoprazole Sodium 40 mg PO DAILY 07/15/17 [History] traZODone HCl [Trazodone HCl] 200 mg PO BEDTIME 07/15/17 [History] Gabapentin [Neurontin] 400 mg PO QID 07/22/17 [History] Insulin Glargine,Hum.Rec.Anlog [Lantus Solostar] 18 - 20 unit SQ DAILY 07/29/18 [History] Mirtazapine 15 mg PO QPM 07/29/18 [History] Dapagliflozin Propanediol [Farxiga] 10 mg PO DAILY 09/04/20 [History] Cyclobenzaprine HCl 10 mg PO TID PRN 09/05/20 [History] Metoprolol Succinate 100 mg PO DAILY #0 09/07/20 [Rx] Acetaminophen/HYDROcodone [HYDROcodone-Acetaminophen 5-325 MG *] 1 tab PO Q4H PRN #12 each 03/07/21 [Rx] Linagliptin [Tradjenta] 5 mg PO DAILY 03/11/21 [History] Nitrofurantoin Monohyd/M-Cryst [Macrobid 100 mg Capsule] 100 mg PO BID #14 capsule 03/11/21 [Rx] Pregabalin [Lyrica] 50 mg PO DAILY 03/11/21 [History] lisinopriL [Lisinopril] 20 mg PO DAILY 03/11/21 [History] Past Medical History HEENT History: Reports: Impaired Vision Cardiovascular History: Reports: Afib, Angina, Arrhythmia, Blood Clots/VTE/DVT, CAD, High Cholesterol, Hypertension, IL, Other (See Below) Other Cardiovascular History: DVT cardiac arrest Mitral valve prolapse [place] TransiuminL ANGIOPLASTY Respiratory History: Reports: Asthma, Bronchitis, Recurrent, COPD, Intubation, Previous, Pneumothorax, SOB, Other (See Below) Other Respiratory History: pleursey Gastrointestinal History: Reports: Bowel Obstruction, Chronic Diarrhea, GI Bleed, Hemorrhoids, Hiatal Hernia, Jaundice, Other (See Below) Other Gastrointestinal History: chrohns disease, polyps Genitourinary History: Reports: Renal Calculus Other Genitourinary History: ileostomy 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: Dysfunctional Uterine Bleeding, Fibroids, , Spontaneous Musculoskeletal History: Reports: Back Pain, Chronic, Fracture, Fibromyalgia, Osteoarthritis, Osteoporosis, Other (See Below) Other Musculoskeletal History: bone spurs on feet Neurological History: Reports: Concussion, Headaches, Chronic, Head Trauma, Migraines, Seizure Psychiatric History: Reports: Anxiety, Depression, Panic Attack, PTSD Endocrine/Metabolic History: Reports: Diabetes, Type II, Obesity/BMI 30+, Osteoporosis Other Endocrine/Metabolic History: lupus Hematologic History: Reports: Anemia Immunologic History: Reports: Other (See Below) Other Immunologic History: Lupus Oncologic (Cancer) History: Reports: Colon Dermatologic History: Reports: Cellulitis - Infectious Disease History Infectious Disease History: Reports: Chicken Pox, Shingles - Past Surgical History HEENT Surgical History: Reports: Tonsillectomy Other HEENT Surgeries/Procedures: oral surgery GI Surgical History: Reports: Appendectomy, Colon, Colonoscopy, Colostomy, EGD, Hernia, Abdominal, Hernia, Inguinal, Hernia Repair/Other, Other (See Below) Other GI Surgeries/Procedures: 8 abdomenal surgeries, ileostomy Female Surgical History: Reports: D&C, Hysterectomy, Other (See Below) Other Female Surgeries/Procedures: fistula, "tear in my bladder" after procedure Neurological Surgical History: Reports: Lumbar Spine Musculoskeletal Surgical History: Reports: Arthroscopic Knee, Shoulder Surgery, Other (See Below) Other Musculoskeletal Surgeries/Procedures:: Spinal fusion Oncologic Surgical History: Reports: Other (See Below) Other Oncologic Surgeries/Procedures: left colol resection for colon mass Social & Family History - Family History Family Medical History: Unobtainable - Caffeine Use Caffeine Use: Reports: Soda ED ROS GENERAL - Review of Systems Review Of Systems: See Below Constitutional: Reports: No Symptoms HEENT: Reports: No Symptoms Respiratory: Reports: Shortness of Breath. Denies: Cough, Sputum Cardiovascular: Reports: Dyspnea on Exertion. Denies: Chest Pain GI/Abdominal: Reports: Nausea, Vomiting : Reports: No Symptoms ED EXAM, GENERAL - Physical Exam Exam: See Below Exam Limited By: No Limitations General Appearance: Alert, Mild Distress Respiratory/Chest: No Respiratory Distress, Lungs Clear, Normal Breath Sounds, No Accessory Muscle Use, Chest Non-Tender Cardiovascular: No Murmur, Tachycardia GI/Abdominal: Soft, Non-Tender #1 Interpretation EKG Date: 03/11/21 Time: 11:13 Rhythm: Other (sinus tachy) Amawalk: Normal P-Wave: Present QRS: Normal ST-T: Normal QT: Normal Comparison: Change From Previous EKG Course - Vital Signs Last Recorded V/S: Last Vital Signs Temp 97.7 F 03/11/21 10:15 Pulse 80 03/11/21 13:23 Resp 13 03/11/21 13:23 BP 130/69 03/11/21 13:23 Pulse Ox 95 03/11/21 13:23 - Orders/Labs/Meds Orders: Active Orders 24 hr Category Date Time Status Cardiac Monitoring [RC] .As Directed Care 03/11/21 10:33 Active Peripheral IV Care [RC] . DIRECTED Care 03/11/21 10:34 Active CULTURE URINE [RM] Urgent Lab 03/11/21 13:16 Received Sodium Chloride 0.9% [Normal Saline] 1,000 ml Med 03/11/21 13:00 Active IV ASDIRECTED Sodium Chloride 0.9% [Normal Saline] 100 ml Med 03/11/21 12:45 Active IV ASDIRECTED Sodium Chloride 0.9% [Saline Flush] Med 03/11/21 10:33 Active 10 ml FLUSH ASDIRECTED PRN Isolation [COMM] Stat Oth 03/11/21 11:12 Ordered Peripheral IV Insertion Adult [OM.PC] Stat Oth 03/11/21 10:33 Ordered EKG 12 Lead [EK] Stat Ther 03/11/21 10:34 Ordered Medication Orders Sodium Chloride (Normal Saline) 100 mls @ 4 mls/sec IV ASDIRECTED MARYBETH Last Admin: 03/11/21 13:07 Dose: 4 mls/sec Documented by: DECRMIC Sodium Chloride (Normal Saline) 1,000 mls @ 999 mls/hr IV ASDIRECTED MARYBETH Last Admin: 03/11/21 13:11 Dose: 999 mls/hr Documented by: PREILOR Sodium Chloride (Sodium Chloride 0.9% 10 Ml Syringe) 10 ml FLUSH ASDIRECTED PRN PRN Reason: Keep Vein Open Last Admin: 03/11/21 10:53 Dose: 10 ml Documented by: MONSE Labs: Laboratory Tests 03/11/21 03/11/21 03/11/21 Range/Units 10:40 10:40 10:40 WBC 15.3 H (4.5-11.0) K/uL RBC 5.56 H (3.30-5.50) M/uL Hgb 16.6 H (12.0-15.0) g/dL Hct 46.4 (36.0-48.0) % MCV 84 (80-98) fL MCH 30 (27-31) pg MCHC 36 (32-36) % Plt Count 459 H (150-400) K/uL Neut % (Auto) 70.2 H (36-66) % Lymph % (Auto) 21.8 L (24-44) % Sully % (Auto) 6.7 H (2-6) % Eos % (Auto) 0.8 L (2-4) % Baso % (Auto) 0.5 (0-1) % D-Dimer, Quantitative 1616.67 H (0.0-500.0) ng/mL Sodium 134 L (140-148) mmol/L Potassium 3.5 L (3.6-5.2) mmol/L Chloride 94 L (100-108) mmol/L Carbon Dioxide 19 L (21-32) mmol/L Anion Gap 24.5 H (5.0-14.0) mmol/L BUN 21 H (7-18) mg/dL Creatinine 1.6 H (0.6-1.0) mg/dL Est Cr Clr Drug Dosing 29.38 mL/min Estimated GFR (MDRD) 32 L (>60) Glucose 281 H (74-106) mg/dL Lactic Acid (0.4-2.0) mmol/L Calcium 9.9 (8.5-10.1) mg/dL Total Bilirubin 0.6 (0.2-1.0) mg/dL AST 38 H (15-37) U/L ALT 46 (12-78) U/L Alkaline Phosphatase 111 (46-116) U/L Troponin I High Sens 17.5 (<=60.3) pg/mL C-Reactive Protein (0.0-0.3) mg/dL Total Protein 8.1 (6.4-8.2) g/dL Albumin 4.1 (3.4-5.0) g/dL Globulin 4.0 H (2.3-3.5) g/dL Albumin/Globulin Ratio 1.0 L (1.2-2.2) Lipase 206 (73-393) U/L Procalcitonin ng/mL Urine Color (YELLOW) Urine Appearance (CLEAR) Urine pH (5.0-8.0) Ur Specific Lindsay (1.008-1.030) Urine Protein (NEGATIVE) mg/dL Urine Glucose (UA) (NEGATIVE) mg/dL Urine Ketones (NEGATIVE) mg/dL Urine Occult Blood (NEGATIVE) Urine Nitrite (NEGATIVE) Urine Bilirubin (NEGATIVE) Urine Urobilinogen (0.2-1.0) EU/dL Ur Leukocyte Esterase (NEGATIVE) Urine RBC (0-5) Urine WBC (0-5) Ur Epithelial Cells Amorphous Sediment Urine Bacteria Urine Mucus Urine Opiates Screen (NEGATIVE) Ur Oxycodone Screen (NEGATIVE) Urine Methadone Screen (NEGATIVE) Ur Propoxyphene Screen (NEGATIVE) Ur Barbiturates Screen (NEGATIVE) Ur Tricyclics Screen (NEGATIVE) Ur Phencyclidine Scrn (NEGATIVE) Ur Amphetamine Screen (NEGATIVE) U Methamphetamines Scrn (NEGATIVE) Urine MDMA Screen (NEGATIVE) U Benzodiazepines Scrn (NEGATIVE) U Cocaine Metab Screen (NEGATIVE) U Marijuana (THC) Screen (NEGATIVE) Ethyl Alcohol mg/dL Influenza Type A RNA (NEGATIVE) RSV RNA (INAAT) (NEGATIVE) Influenza Type B RNA (NEGATIVE) SARS-CoV-2 RNA (ZANDER) (NEGATIVE) 03/11/21 03/11/21 03/11/21 Range/Units 10:40 10:41 11:11 WBC (4.5-11.0) K/uL RBC (3.30-5.50) M/uL Hgb (12.0-15.0) g/dL Hct (36.0-48.0) % MCV (80-98) fL MCH (27-31) pg MCHC (32-36) % Plt Count (150-400) K/uL Neut % (Auto) (36-66) % Lymph % (Auto) (24-44) % Sully % (Auto) (2-6) % Eos % (Auto) (2-4) % Baso % (Auto) (0-1) % D-Dimer, Quantitative (0.0-500.0) ng/mL Sodium (140-148) mmol/L Potassium (3.6-5.2) mmol/L Chloride (100-108) mmol/L Carbon Dioxide (21-32) mmol/L Anion Gap (5.0-14.0) mmol/L BUN (7-18) mg/dL Creatinine (0.6-1.0) mg/dL Est Cr Clr Drug Dosing mL/min Estimated GFR (MDRD) (>60) Glucose (74-106) mg/dL Lactic Acid 3.7 H (0.4-2.0) mmol/L Calcium (8.5-10.1) mg/dL Total Bilirubin (0.2-1.0) mg/dL AST (15-37) U/L ALT (12-78) U/L Alkaline Phosphatase (46-116) U/L Troponin I High Sens (<=60.3) pg/mL C-Reactive Protein (0.0-0.3) mg/dL Total Protein (6.4-8.2) g/dL Albumin (3.4-5.0) g/dL Globulin (2.3-3.5) g/dL Albumin/Globulin Ratio (1.2-2.2) Lipase (73-393) U/L Procalcitonin ng/mL Urine Color (YELLOW) Urine Appearance (CLEAR) Urine pH (5.0-8.0) Ur Specific Lindsay (1.008-1.030) Urine Protein (NEGATIVE) mg/dL Urine Glucose (UA) (NEGATIVE) mg/dL Urine Ketones (NEGATIVE) mg/dL Urine Occult Blood (NEGATIVE) Urine Nitrite (NEGATIVE) Urine Bilirubin (NEGATIVE) Urine Urobilinogen (0.2-1.0) EU/dL Ur Leukocyte Esterase (NEGATIVE) Urine RBC (0-5) Urine WBC (0-5) Ur Epithelial Cells Amorphous Sediment Urine Bacteria Urine Mucus Urine Opiates Screen (NEGATIVE) Ur Oxycodone Screen (NEGATIVE) Urine Methadone Screen (NEGATIVE) Ur Propoxyphene Screen (NEGATIVE) Ur Barbiturates Screen (NEGATIVE) Ur Tricyclics Screen (NEGATIVE) Ur Phencyclidine Scrn (NEGATIVE) Ur Amphetamine Screen (NEGATIVE) U Methamphetamines Scrn (NEGATIVE) Urine MDMA Screen (NEGATIVE) U Benzodiazepines Scrn (NEGATIVE) U Cocaine Metab Screen (NEGATIVE) U Marijuana (THC) Screen (NEGATIVE) Ethyl Alcohol < 3 mg/dL Influenza Type A RNA Negative (NEGATIVE) RSV RNA (INAAT) Negative (NEGATIVE) Influenza Type B RNA Negative (NEGATIVE) SARS-CoV-2 RNA (ZANDER) Negative (NEGATIVE) 03/11/21 03/11/21 03/11/21 Range/Units 11:15 11:15 12:32 WBC (4.5-11.0) K/uL RBC (3.30-5.50) M/uL Hgb (12.0-15.0) g/dL Hct (36.0-48.0) % MCV (80-98) fL MCH (27-31) pg MCHC (32-36) % Plt Count (150-400) K/uL Neut % (Auto) (36-66) % Lymph % (Auto) (24-44) % Sully % (Auto) (2-6) % Eos % (Auto) (2-4) % Baso % (Auto) (0-1) % D-Dimer, Quantitative (0.0-500.0) ng/mL Sodium (140-148) mmol/L Potassium (3.6-5.2) mmol/L Chloride (100-108) mmol/L Carbon Dioxide (21-32) mmol/L Anion Gap (5.0-14.0) mmol/L BUN (7-18) mg/dL Creatinine (0.6-1.0) mg/dL Est Cr Clr Drug Dosing mL/min Estimated GFR (MDRD) (>60) Glucose (74-106) mg/dL Lactic Acid (0.4-2.0) mmol/L Calcium (8.5-10.1) mg/dL Total Bilirubin (0.2-1.0) mg/dL AST (15-37) U/L ALT (12-78) U/L Alkaline Phosphatase (46-116) U/L Troponin I High Sens (<=60.3) pg/mL C-Reactive Protein 0.61 H (0.0-0.3) mg/dL Total Protein (6.4-8.2) g/dL Albumin (3.4-5.0) g/dL Globulin (2.3-3.5) g/dL Albumin/Globulin Ratio (1.2-2.2) Lipase (73-393) U/L Procalcitonin 0.10 ng/mL Urine Color (YELLOW) Urine Appearance (CLEAR) Urine pH (5.0-8.0) Ur Specific Lindsay (1.008-1.030) Urine Protein (NEGATIVE) mg/dL Urine Glucose (UA) (NEGATIVE) mg/dL Urine Ketones (NEGATIVE) mg/dL Urine Occult Blood (NEGATIVE) Urine Nitrite (NEGATIVE) Urine Bilirubin (NEGATIVE) Urine Urobilinogen (0.2-1.0) EU/dL Ur Leukocyte Esterase (NEGATIVE) Urine RBC (0-5) Urine WBC (0-5) Ur Epithelial Cells Amorphous Sediment Urine Bacteria Urine Mucus Urine Opiates Screen Presumptive positive H (NEGATIVE) Ur Oxycodone Screen Negative (NEGATIVE) Urine Methadone Screen Negative (NEGATIVE) Ur Propoxyphene Screen Negative (NEGATIVE) Ur Barbiturates Screen Negative (NEGATIVE) Ur Tricyclics Screen Presumptive positive H (NEGATIVE) Ur Phencyclidine Scrn Negative (NEGATIVE) Ur Amphetamine Screen Negative (NEGATIVE) U Methamphetamines Scrn Negative (NEGATIVE) Urine MDMA Screen Negative (NEGATIVE) U Benzodiazepines Scrn Presumptive positive H (NEGATIVE) U Cocaine Metab Screen Negative (NEGATIVE) U Marijuana (THC) Screen Negative (NEGATIVE) Ethyl Alcohol mg/dL Influenza Type A RNA (NEGATIVE) RSV RNA (INAAT) (NEGATIVE) Influenza Type B RNA (NEGATIVE) SARS-CoV-2 RNA (ZANDER) (NEGATIVE) 03/11/21 Range/Units 12:32 WBC (4.5-11.0) K/uL RBC (3.30-5.50) M/uL Hgb (12.0-15.0) g/dL Hct (36.0-48.0) % MCV (80-98) fL MCH (27-31) pg MCHC (32-36) % Plt Count (150-400) K/uL Neut % (Auto) (36-66) % Lymph % (Auto) (24-44) % Sully % (Auto) (2-6) % Eos % (Auto) (2-4) % Baso % (Auto) (0-1) % D-Dimer, Quantitative (0.0-500.0) ng/mL Sodium (140-148) mmol/L Potassium (3.6-5.2) mmol/L Chloride (100-108) mmol/L Carbon Dioxide (21-32) mmol/L Anion Gap (5.0-14.0) mmol/L BUN (7-18) mg/dL Creatinine (0.6-1.0) mg/dL Est Cr Clr Drug Dosing mL/min Estimated GFR (MDRD) (>60) Glucose (74-106) mg/dL Lactic Acid (0.4-2.0) mmol/L Calcium (8.5-10.1) mg/dL Total Bilirubin (0.2-1.0) mg/dL AST (15-37) U/L ALT (12-78) U/L Alkaline Phosphatase (46-116) U/L Troponin I High Sens (<=60.3) pg/mL C-Reactive Protein (0.0-0.3) mg/dL Total Protein (6.4-8.2) g/dL Albumin (3.4-5.0) g/dL Globulin (2.3-3.5) g/dL Albumin/Globulin Ratio (1.2-2.2) Lipase (73-393) U/L Procalcitonin ng/mL Urine Color Yellow (YELLOW) Urine Appearance Cloudy A (CLEAR) Urine pH 5.5 (5.0-8.0) Ur Specific Lindsay >= 1.030 (1.008-1.030) Urine Protein 100 H (NEGATIVE) mg/dL Urine Glucose (UA) 250 H (NEGATIVE) mg/dL Urine Ketones 80 H (NEGATIVE) mg/dL Urine Occult Blood Negative (NEGATIVE) Urine Nitrite Negative (NEGATIVE) Urine Bilirubin Large H (NEGATIVE) Urine Urobilinogen 0.2 (0.2-1.0) EU/dL Ur Leukocyte Esterase Trace H (NEGATIVE) Urine RBC 0-5 (0-5) Urine WBC 10-20 H (0-5) Ur Epithelial Cells Moderate Amorphous Sediment Few Urine Bacteria Many Urine Mucus Not seen Urine Opiates Screen (NEGATIVE) Ur Oxycodone Screen (NEGATIVE) Urine Methadone Screen (NEGATIVE) Ur Propoxyphene Screen (NEGATIVE) Ur Barbiturates Screen (NEGATIVE) Ur Tricyclics Screen (NEGATIVE) Ur Phencyclidine Scrn (NEGATIVE) Ur Amphetamine Screen (NEGATIVE) U Methamphetamines Scrn (NEGATIVE) Urine MDMA Screen (NEGATIVE) U Benzodiazepines Scrn (NEGATIVE) U Cocaine Metab Screen (NEGATIVE) U Marijuana (THC) Screen (NEGATIVE) Ethyl Alcohol mg/dL Influenza Type A RNA (NEGATIVE) RSV RNA (INAAT) (NEGATIVE) Influenza Type B RNA (NEGATIVE) SARS-CoV-2 RNA (ZANDER) (NEGATIVE) Meds: Medications Generic Name Dose Route Start Last Admin Trade Name Freq PRN Reason Stop Dose Admin Sodium Chloride 100 mls @ 4 mls/sec 03/11/21 12:45 03/11/21 13:07 Normal Saline IV 4 mls/sec ASDIRECTED MARYBETH Administration Sodium Chloride 1,000 mls @ 999 mls/hr 03/11/21 13:00 03/11/21 13:11 Normal Saline IV 999 mls/hr ASDIRECTED MARYBETH Administration Sodium Chloride 10 ml 03/11/21 10:33 03/11/21 10:53 Sodium Chloride 0.9% 10 Ml Syringe FLUSH 10 ml ASDIRECTED PRN Administration Keep Vein Open Discontinued Medications Generic Name Dose Route Start Last Admin Trade Name Freq PRN Reason Stop Dose Admin Sodium Chloride 1,000 mls @ 500 mls/hr 03/11/21 10:33 03/11/21 10:52 Normal Saline IV 03/11/21 12:32 500 mls/hr .BOLUS ONE Administration Iopamidol 100 ml 03/11/21 12:33 03/11/21 13:07 Iopamidol 755 Mg/Ml 100 Ml Bottle IV 03/11/21 12:34 100 ml . DIRECTED ONE Administration Lorazepam 0.5 mg 03/11/21 10:39 03/11/21 11:05 Lorazepam 2 Mg/Ml Sdv IVPUSH 03/11/21 10:40 0.5 mg ONETIME ONE Administration Metoprolol Succinate 100 mg 03/11/21 10:37 03/11/21 11:07 Metoprolol Succinate 50 Mg Tab.Er PO 03/11/21 10:38 100 mg ONETIME ONE Administration Departure - Departure Time of Disposition: 14:16 Disposition: Home, Self-Care 01 Condition: Fair Clinical Impression: Urinary tract infection Qualifiers: Urinary tract infection type: acute cystitis Hematuria presence: without hematuria Qualified Code(s): N30.00 - Acute cystitis without hematuria Prescriptions: Nitrofurantoin Monohyd/M-Cryst [Macrobid 100 mg Capsule] 100 mg PO BID #14 capsule Instructions: Urinary Tract Infection, Adult Referrals: Mehrdad Ward Sr, MD [Primary Care Provider] - Forms: ED Department Discharge Additional Instructions: Take full course of antibiotics, please followup with your primary care provider in 2-3 days if not better, please call return to the emergency department with worsening of symptoms. Your antibiotics have been faxed to [facility] Sepsis Event Note (ED) - Focused Exam Vital Signs: Vital Signs Temp Pulse Pulse Resp BP BP Pulse Ox 03/11/21 13:23 80 13 130/69 95 03/11/21 12:10 87 15 122/72 96 03/11/21 11:07 116 H 143/89 H 03/11/21 10:15 97.7 F 137 H 22 H 154/81 H 97 - My Orders Last 24 Hours: My Active Orders 03/11/21 10:33 Cardiac Monitoring [RC] .As Directed Sodium Chloride 0.9% [Saline Flush] 10 ml FLUSH ASDIRECTED PRN Peripheral IV Insertion Adult [OM.PC] Stat 03/11/21 10:34 Peripheral IV Care [RC] . DIRECTED EKG 12 Lead [EK] Stat 03/11/21 11:12 Isolation [COMM] Stat 03/11/21 12:45 Sodium Chloride 0.9% [Normal Saline] 100 ml IV ASDIRECTED 03/11/21 13:00 Sodium Chloride 0.9% [Normal Saline] 1,000 ml IV ASDIRECTED 03/11/21 13:16 CULTURE URINE [RM] Urgent - Assessment/Plan Last 24 Hours: My Active Orders 03/11/21 10:33 Cardiac Monitoring [RC] .As Directed Sodium Chloride 0.9% [Saline Flush] 10 ml FLUSH ASDIRECTED PRN Peripheral IV Insertion Adult [OM.PC] Stat 03/11/21 10:34 Peripheral IV Care [RC] . DIRECTED EKG 12 Lead [EK] Stat 03/11/21 11:12 Isolation [COMM] Stat 03/11/21 12:45 Sodium Chloride 0.9% [Normal Saline] 100 ml IV ASDIRECTED 03/11/21 13:00 Sodium Chloride 0.9% [Normal Saline] 1,000 ml IV ASDIRECTED 03/11/21 13:16 CULTURE URINE [RM] Urgent Plan: Assessment Acuity = acute Site and laterality = urinary tract infection with panic attack Etiology = bacterial cause for the urinary tract infection anxiety for the panic attack Manifestations = tachycardia now resolved Location of injury = Home Lab values = WBC elevated 15.3 consistent with leukocytosis, D-dimer elevated 1616 of uncertain significance potassium low at 3.5 consistent hypokalemia creatinine elevated 1.6 consistent chronic renal failure stage G3 B lactic acid elevated 3.7 consistent with lactic acidosis CRP slightly elevated 0.61 procalcitonin within normal limits urinalysis reveals 10-20 WBCs consistent with pyuria trace leukocyte esterase urine drug screen positive for opiates, benzodiazepines and tricyclic's Covid, RSV, influenza all negative EtOH was negative CT scan of the chest reveals no pulmonary embolism no pneumonia Plan I did give her her morning medication as well as fluids otherwise no intervention was done and her tachycardia slowly came down I did offer her IV antibiotics because my concern elevated white count and lactic acidosis however she declined would prefer to do oral antibiotics she does have several allergies is difficult to pick an antibiotic. But with Macrobid 100 mg p.o. twice daily x7 days have her follow-up primary care in the next 2 to 3 days for reevaluation culture is pending This note was dictated using [employer] voice recognition software please call with any questions on syntax or grammar.
--- NOTE | 2021-03-11 11:03 | CR ---
CHEST: Portable 03/11/2021 at 10:48 AM CLINICAL HISTORY:Chest pain COMPARISON:CT September 2020 FINDINGS: Lung so are clear. Heart size is normal. There is a paucity of lung markings in both upper lobes particularly on the left. This may be due to emphysematous change. This appearance is likely more asymmetric when compared to August 2020 No effusions are seen.. Impression: There is a paucity of lung markings in the upper lobes particularly on the left. This is slightly more pronounced when compared to August 2020. This may be due to emphysematous changes alone. The difference may be technical. Some decrease in left lung blood flow is not excluded. Clinical correlation necessary.
[2021-03-11] MEDS ORDERED: Iopamidol 755 Mg/ML 100 ML Bottle IV ONE (12:33)
[2021-03-11] MEDS ORDERED: Sodium Chloride 0.9% 100 ML IV SCH (12:45)
[2021-03-11] MEDS ORDERED: Sodium Chloride 0.9% 1,000 ML IV SCH (13:00)
[2021-03-11 13:07] LABS: CORONAVIRUS COVID-19 NAA NEGATIVE (NEGATIVE)
[2021-03-11 13:24] VITALS: BP 130/69; PULSE 80
--- NOTE | 2021-03-11 13:55 | CT ---
Ang Chest CLINICAL HISTORY: SOB, tachycardia, elevated d-dimer TECHNIQUE: Thin section axial contiguous tomographic sections were taken through the chest after bolus IV iodinated contrast administration. Coronal and sagittal images were reconstructed. Auto dosage reduction and iterative reconstruction techniques employed. FINDINGS: There is a persistent irregular groundglass opacification in the right upper lobe similar to prior studies. No other pulmonary mass or infiltrate is identified. There is some bronchiectasis and mild bronchial thickening. This is similar to prior study. No mediastinal mass or lymphadenopathy is identified. There is some nodularity in the inferior left lobe of the thyroid. This area is prone to some streak artifact. No filling defects are seen in the pulmonary arteries. Aorta is free of aneurysm or dissection. There are no pleural effusions. Scans in the upper abdomen show some fullness of the right adrenal gland. Density measurement is nonspecific. It is similar to the August and September studies. IMPRESSION: No evidence of pulmonary embolus Persistent irregular groundglass opacity in the right upper lobe. This is similar to the prior studies. Follow-up should be based on Fleischner Society criteria as previously stated. Persistent fullness of the right adrenal gland. Density measurements are nonspecific.
== END 2021-03-11 14:43 | disposition home or self-care (01) ==
LOC: JP.ED 10:11
DX: N30.00 Acute cystitis without hematuria (principal); R00.0 Tachycardia, unspecified; I48.91 Unspecified atrial fibrillation; I25.10 Atherosclerotic heart disease of native coronary artery without angina pectoris; I10 Essential (primary) hypertension; I25.2 Old myocardial infarction; J44.9 Chronic obstructive pulmonary disease, unspecified; E11.9 Type 2 diabetes mellitus without complications; E66.9 Obesity, unspecified; Z68.28 Body mass index [BMI] 28.0-28.9, adult; Z88.8 Allergy status to other drugs, medicaments and biological substances; Z88.1 Allergy status to other antibiotic agents; Z88.0 Allergy status to penicillin; Z88.2 Allergy status to sulfonamides; Z88.6 Allergy status to analgesic agent; Z88.5 Allergy status to narcotic agent; Z79.4 Long term (current) use of insulin; Z79.899 Other long term (current) drug therapy; Z20.822 Contact with and (suspected) exposure to COVID-19
CPT/HCPCS: 0241U; 36415; 71045; 71275; 80053; 80305; 80307; 81001; 83605; 83690; 84145; 84484; 85025; 85379; 86140; 87086; 93005; 96374; 99285; A9270; J2060; J7030; J7050; Q9967

== ENCOUNTER 2021-12-31 13:20 | Emergency (ER) | payer MEDICARE, MEDICAID ==
[2021-12-31] MEDS ORDERED: Sodium Chloride 0.9% 1,000 ML IV SCH (13:45)
[2021-12-31 15:20] LABS: ESTIMATED GFR 19 mL/min (>60)
[2021-12-31] MEDS ORDERED: cefTRIAXone 1 GM in Sodium Chloride 0.9% 50 ML IV ONE (15:57)
[2021-12-31 17:36] VITALS: BP 98/55; PULSE 59
== END 2021-12-31 17:36 | disposition home or self-care (01) ==
LOC: JP.ED 13:20
DX: E86.0 Dehydration (principal); N17.9 Acute kidney failure, unspecified; N39.0 Urinary tract infection, site not specified; J44.9 Chronic obstructive pulmonary disease, unspecified; I25.10 Atherosclerotic heart disease of native coronary artery without angina pectoris; E78.00 Pure hypercholesterolemia, unspecified; I10 Essential (primary) hypertension; I25.2 Old myocardial infarction; E11.9 Type 2 diabetes mellitus without complications; F17.210 Nicotine dependence, cigarettes, uncomplicated; E66.9 Obesity, unspecified; Z68.23 Body mass index [BMI] 23.0-23.9, adult; Z88.8 Allergy status to other drugs, medicaments and biological substances; Z88.1 Allergy status to other antibiotic agents; Z88.0 Allergy status to penicillin; Z88.2 Allergy status to sulfonamides; Z88.6 Allergy status to analgesic agent; Z90.49 Acquired absence of other specified parts of digestive tract; Z90.710 Acquired absence of both cervix and uterus
CPT/HCPCS: 36415; 80053; 80162; 80305; 80307; 81001; 82550; 84443; 84484; 85025; 87086; 87088; 87186; 96361; 96365; 99284; J0696; J7030

== ENCOUNTER 2022-03-03 15:30 | Emergency (ER) | payer MEDICARE, MEDICAID ==
[2022-03-03] MEDS ORDERED: Sodium Chloride 0.9% 1,000 ML IV SCH ×2 (16:00→17:00)
[2022-03-03 16:23] LABS: ESTIMATED GFR 13 mL/min (>60)
[2022-03-03 17:39] VITALS: BP 92/45; PULSE 75
== END 2022-03-03 18:20 | disposition home or self-care (01) ==
LOC: JP.ED 15:30
DX: T46.0X1A Poisoning by cardiac-stimulant glycosides and drugs of similar action, accidental (unintentional), initial encounter (principal); R41.0 Disorientation, unspecified; I95.2 Hypotension due to drugs; I25.10 Atherosclerotic heart disease of native coronary artery without angina pectoris; I10 Essential (primary) hypertension; I25.2 Old myocardial infarction; F17.210 Nicotine dependence, cigarettes, uncomplicated; Z88.1 Allergy status to other antibiotic agents; Z88.0 Allergy status to penicillin; Z88.2 Allergy status to sulfonamides; Z88.6 Allergy status to analgesic agent; Z79.899 Other long term (current) drug therapy; Z79.4 Long term (current) use of insulin; Z90.49 Acquired absence of other specified parts of digestive tract; Z90.710 Acquired absence of both cervix and uterus
CPT/HCPCS: 36415; 80053; 80162; 80305; 80307; 81001; 82140; 85025; 96360; 96361; 99285; J7030

== ENCOUNTER 2022-04-05 19:36 | Emergency (ER) | payer MEDICARE, MEDICAID ==
[2022-04-05] MEDS ORDERED: Alum Hydrox/Mag Hydrox/Simeth 15 ML, Lidocaine 2% 15 ML PO ONE ×2 (19:47)
[2022-04-05 20:06] VITALS: BP 139/91; PULSE 78
[2022-04-05 20:23] LABS: ESTIMATED GFR 71 mL/min (>60); TROPONIN I HIGH SENSITIVITY 6.7 pg/mL (<=60.3)
[2022-04-05] MEDS ORDERED: Acetaminophen/oxyCODONE 325-5 MG Tab PO PRN (20:32)
== END 2022-04-05 21:06 | disposition home or self-care (01) ==
LOC: JP.ED 19:36
DX: R07.89 Other chest pain (principal); M54.9 Dorsalgia, unspecified; I48.91 Unspecified atrial fibrillation; I25.10 Atherosclerotic heart disease of native coronary artery without angina pectoris; E78.00 Pure hypercholesterolemia, unspecified; I10 Essential (primary) hypertension; I25.2 Old myocardial infarction; J44.9 Chronic obstructive pulmonary disease, unspecified; E11.9 Type 2 diabetes mellitus without complications; E66.9 Obesity, unspecified; Z88.8 Allergy status to other drugs, medicaments and biological substances; Z88.6 Allergy status to analgesic agent; Z88.1 Allergy status to other antibiotic agents; Z88.0 Allergy status to penicillin; Z88.2 Allergy status to sulfonamides; Z88.5 Allergy status to narcotic agent; Z79.4 Long term (current) use of insulin; Z79.899 Other long term (current) drug therapy
CPT/HCPCS: 36415; 80048; 84484; 85025; 93005; 99285; A9270; 93010; 99282

== ENCOUNTER 2022-08-05 13:33 | Emergency (ER) | payer MEDICARE, MEDICAID ==
[2022-08-05] MEDS ORDERED: traMADol 50 MG Tab PO ONE (15:24)
[2022-08-05 17:13] VITALS: BP 84/63; PULSE 86
== END 2022-08-05 17:04 | disposition home or self-care (01) ==
LOC: JP.ED 13:33
DX: S82.51XA Displaced fracture of medial malleolus of right tibia, initial encounter for closed fracture (principal); I25.10 Atherosclerotic heart disease of native coronary artery without angina pectoris; J44.9 Chronic obstructive pulmonary disease, unspecified; E11.9 Type 2 diabetes mellitus without complications; I10 Essential (primary) hypertension; E66.9 Obesity, unspecified; Z68.29 Body mass index [BMI] 29.0-29.9, adult; Z88.1 Allergy status to other antibiotic agents; Z88.0 Allergy status to penicillin; Z88.2 Allergy status to sulfonamides; Z88.6 Allergy status to analgesic agent; Z88.8 Allergy status to other drugs, medicaments and biological substances; Z79.899 Other long term (current) drug therapy; Z79.4 Long term (current) use of insulin; Z90.49 Acquired absence of other specified parts of digestive tract; W19.XXXA Unspecified fall, initial encounter
CPT/HCPCS: 29515; 73590; 73600; 99283; A9270

== ENCOUNTER 2022-08-06 06:05 | Inpatient (IN) | payer MEDICARE, MEDICAID ==
[2022-08-06] MEDS ORDERED: Sodium Chloride 0.9% 500 ML IV SCH (07:00)
[2022-08-06 07:08] LABS: BASOPHILS ABSOLUTE AUTO 0.04 K/uL (0.00-0.10); BASOPHILS PERCENT AUTO 0.3 % (0.1-1.3); EOSINOPHILS ABSOLUTE AUTO 0.09 K/uL (0.00-0.40); EOSINOPHILS PERCENT AUTO 0.8 % (0.0-5.4); HEMATOCRIT 37.2 % (34.3-46.0); HEMOGLOBIN 13.1 g/dL (11.2-15.5); IMMATURE GRAN ABSOLUTE AUTO 0.08 K/uL (0.00-0.23); IMMATURE GRAN PERCENT AUTO 0.7 % (0.0-0.7); LYMPHOCYTES ABSOLUTE AUTO 2.59 K/uL (0.8-3.3); LYMPHOCYTES PERCENT AUTO 21.9 % (11.4-47.7); MEAN CORPUSCULAR HEMOGLOBIN 30.8 pg (31.6-35.5); MEAN CORPUSCULAR HGB CONC 35.2 g/dL (31.6-35.5); MEAN CORPUSCULAR VOLUME 87.3 fL (81.4-99.0); MONOCYTES ABSOLUTE AUTO 0.69 K/uL (0.20-0.90); MONOCYTES PERCENT AUTO 5.8 % (3.3-12.6); NEUTROPHILS ABSOLUTE AUTO 8.36 K/uL (1.0-7.6); NEUTROPHILS PERCENT AUTO 70.5 % (40.0-78.1); PLATELET COUNT,PLT 339 K/uL (130-375); RED BLOOD CELL COUNT 4.26 M/uL (3.77-5.24); WHITE BLOOD CELL COUNT,WBC 11.9 K/uL (3.2-11.0)
[2022-08-06 07:29] LABS: A/G RATIO 0.8 (1.2-2.2); ALANINE AMINOTRANSFERASE,ALT 23 U/L (12-78); ALBUMIN 3.7 g/dL (3.4-5.0); ALKALINE PHOSPHATASE 139 U/L (46-116); ASPARTATE AMNIOTRANSFERASE,AST 15 U/L (15-37); BILIRUBIN TOTAL 0.3 mg/dL (0.2-1.0); BLOOD UREA NITROGEN,BUN 69 mg/dL (7-18); CALCIUM 9.7 mg/dL (8.5-10.1); CARBON DIOXIDE,CO2 26 mmol/L (21-32); CHLORIDE,CL 90 mmol/L (100-108); EST CRCL DRUG DOSING (CG) 15.46 mL/min; ESTIMATED GFR 17 mL/min (>60); GLUCOSE RANDOM 205 mg/dL (74-106); POTASSIUM,K 4.4 mmol/L (3.6-5.2); PROTEIN TOTAL,TP 8.1 g/dL (6.4-8.2); SODIUM,NA 128 mmol/L (140-148)
[2022-08-06 07:36] LABS: ANION GAP 16.4 mmol/L (5.0-14.0)
[2022-08-06 07:44] LABS: APPEARANCE,URINE CLOUDY (CLEAR); BILIRUBIN,URINE NEGATIVE (NEGATIVE); COLOR,URINE YELLOW (YELLOW); GLUCOSE,URINE 250 mg/dL (NEGATIVE); KETONES,URINE NEGATIVE (NEGATIVE); LEUKOCYTE ESTERASE,URINE NEGATIVE (NEGATIVE); NITRITE,URINE NEGATIVE (NEGATIVE); OCCULT BLOOD,URINE TRACE-INTACT (NEGATIVE); PROTEIN,URINE 30 mg/dL (NEGATIVE); UROBILINOGEN,URINE 0.2 EU/dL (0.2-1.0)
[2022-08-06 07:53] LABS: AMPHETAMINES SCREEN, URINE NEGATIVE (NEGATIVE); BARBITURATE SCREEN,URINE NEGATIVE (NEGATIVE); BENZODIAZEPINES SCREEN,URINE PRESUMPTIVE POSITIVE (NEGATIVE); METHADONE SCREEN, URINE NEGATIVE (NEGATIVE); METHAMPHETAMINES SCREEN, URINE NEGATIVE (NEGATIVE); OXYCODONE SCREEN,URINE NEGATIVE (NEGATIVE); PROPOXYPHENE SCREEN,URINE NEGATIVE (NEGATIVE); THC SCREEN,URINE 50 NG/ML NEGATIVE (NEGATIVE)
[2022-08-06 07:54] LABS: AMORPHOUS SEDIMENT,URINE NOT SEEN; BACTERIA,URINE MANY; EPITHELIAL CELLS,URINE FEW; MUCUS,URINE NOT SEEN; RBC,URINE 0-5 (0-5); WBC,URINE 20-30 (0-5)
[2022-08-06] MEDS ORDERED: Nitroglycerin 0.4 MG Tab.SL SL PRN (08:47)
[2022-08-06] MEDS ORDERED: 50% Dextrose in Water 50 ML Syringe IVPUSH PRN (08:47)
[2022-08-06] MEDS ORDERED: Glucagon,Human Recombinant 1 MG Vial IM PRN (08:47)
[2022-08-06] MEDS ORDERED: Insulin Glargine,Human Rec. Analog 100 Units/ML 3 ML Pen SUBCUT SCH (09:00)
[2022-08-06] MEDS: traMADol 50 MG Tab PO PRN ×3 (09:20→18:27)
[2022-08-06] MEDS: Metoprolol Succinate 50 MG Tab.ER PO SCH (09:21)
[2022-08-06] MEDS: Gabapentin 400 MG Cap PO SCH ×3 (09:21→21:43)
[2022-08-06] MEDS: Empagliflozin 10 MG Tab PO SCH (09:59)
[2022-08-06] MEDS: Insulin Lispro 100 Unit/ML 3 ML KwikPen SUBCUT SCH ×2 (12:19→17:30)
[2022-08-06] MEDS ORDERED: Sodium Chloride 0.9% 1,000 ML IV SCH (14:00)
[2022-08-06] MEDS: hydrOXYzine HCl 25 MG Tab PO PRN ×2 (16:14→21:42)
[2022-08-06] MEDS: Cyclobenzaprine 10 MG Tab PO PRN (16:14)
[2022-08-06] MEDS: Acetaminophen/HYDROcodone 325-5 MG Tab PO PRN ×2 (16:15→21:42)
[2022-08-06] MEDS: Insulin Glargine,Human Rec. Analog 100 Units/ML 3 ML Pen SUBCUT SCH (21:41)
[2022-08-06] MEDS: Mirtazapine 15 MG Tab PO SCH (21:42)
[2022-08-07] MEDS: Gabapentin 400 MG Cap PO SCH ×4 (05:58→21:19)
[2022-08-07] MEDS: Acetaminophen/HYDROcodone 325-5 MG Tab PO PRN ×4 (05:58→20:43)
[2022-08-07] MEDS: Insulin Lispro 100 Unit/ML 3 ML KwikPen SUBCUT SCH ×3 (08:17→16:30)
[2022-08-07] MEDS: Metoprolol Succinate 50 MG Tab.ER PO SCH (08:21)
[2022-08-07] MEDS: Empagliflozin 10 MG Tab PO SCH (08:21)
[2022-08-07 10:06] LABS: A/G RATIO 0.7 (1.2-2.2); ALANINE AMINOTRANSFERASE,ALT 20 U/L (12-78); ALBUMIN 3.3 g/dL (3.4-5.0); ALKALINE PHOSPHATASE 127 U/L (46-116); ASPARTATE AMNIOTRANSFERASE,AST 19 U/L (15-37); BILIRUBIN TOTAL 0.4 mg/dL (0.2-1.0); BLOOD UREA NITROGEN,BUN 47 mg/dL (7-18); CARBON DIOXIDE,CO2 31 mmol/L (21-32); CHLORIDE,CL 97 mmol/L (100-108); CREATININE 1.6 mg/dL (0.6-1.0); ESTIMATED GFR 36 mL/min (>60); GLUCOSE RANDOM 200 mg/dL (74-106); POTASSIUM,K 5.1 mmol/L (3.6-5.2); PROTEIN TOTAL,TP 7.9 g/dL (6.4-8.2); SODIUM,NA 137 mmol/L (140-148)
[2022-08-07 10:09] LABS: ANION GAP 14.1 mmol/L (5.0-14.0)
[2022-08-07] MEDS: Nicotine 21 MG/24 Hr Patch TRDERM SCH (13:19)
[2022-08-07] MEDS: traMADol 50 MG Tab PO PRN (14:17)
[2022-08-07 18:07] LABS: CREATININE 1.5 mg/dL (0.6-1.0); EST CRCL DRUG DOSING (CG) 30.93 mL/min; POTASSIUM,K 4.5 mmol/L (3.6-5.2)
[2022-08-07 18:09] LABS: ANION GAP 12.5 mmol/L (5.0-14.0)
[2022-08-07] MEDS: Insulin Glargine,Human Rec. Analog 100 Units/ML 3 ML Pen SUBCUT SCH (21:17)
[2022-08-07] MEDS: Mirtazapine 15 MG Tab PO SCH (21:18)
[2022-08-07] MEDS: hydrOXYzine HCl 25 MG Tab PO PRN (21:19)
[2022-08-07] MEDS ORDERED: Ketorolac 30 MG/ML SDV IVPUSH PRN (22:40)
[2022-08-07] MEDS ORDERED: HYDROmorphone 0.5 MG/0.5 ML Syringe IVPUSH PRN (22:52)
[2022-08-08] MEDS: Gabapentin 400 MG Cap PO SCH ×5 (06:19→22:16)
[2022-08-08] MEDS: Acetaminophen/HYDROcodone 325-5 MG Tab PO PRN ×2 (06:19→20:15)
[2022-08-08] MEDS: hydrOXYzine HCl 25 MG Tab PO PRN ×5 (06:19→22:18)
[2022-08-08] MEDS: metFORMIN 500 MG Tab PO SCH ×2 (08:41→18:01)
[2022-08-08] MEDS: Insulin Lispro 100 Unit/ML 3 ML KwikPen SUBCUT SCH ×3 (08:43→18:02)
[2022-08-08] MEDS: Empagliflozin 10 MG Tab PO SCH (08:45)
[2022-08-08] MEDS: Nicotine 21 MG/24 Hr Patch TRDERM SCH ×2 (08:45→09:01)
[2022-08-08] MEDS: Enoxaparin 30 MG/0.3 ML Syringe SUBCUT SCH (08:46)
[2022-08-08] MEDS: traMADol 50 MG Tab PO PRN (08:57)
[2022-08-08] MEDS: Metoprolol Succinate 50 MG Tab.ER PO SCH (08:58)
[2022-08-08] MEDS: Mirtazapine 15 MG Tab PO SCH (20:16)
[2022-08-08] MEDS: Insulin Glargine,Human Rec. Analog 100 Units/ML 3 ML Pen SUBCUT SCH (20:17)
[2022-08-08] MEDS: Cyclobenzaprine 10 MG Tab PO PRN (23:30)
[2022-08-09] MEDS: Acetaminophen/HYDROcodone 325-5 MG Tab PO PRN ×4 (01:09→19:38)
[2022-08-09] MEDS: hydrOXYzine HCl 25 MG Tab PO PRN ×3 (03:23→19:38)
[2022-08-09] MEDS: traMADol 50 MG Tab PO PRN ×2 (03:23→22:41)
[2022-08-09] MEDS: Gabapentin 400 MG Cap PO SCH ×4 (05:03→21:02)
[2022-08-09] MEDS: Insulin Lispro 100 Unit/ML 3 ML KwikPen SUBCUT SCH ×3 (07:50→17:06)
[2022-08-09] MEDS: Metoprolol Succinate 50 MG Tab.ER PO SCH (08:24)
[2022-08-09] MEDS: Empagliflozin 10 MG Tab PO SCH (08:25)
[2022-08-09] MEDS: metFORMIN 500 MG Tab PO SCH ×2 (08:25→17:05)
[2022-08-09] MEDS: Enoxaparin 30 MG/0.3 ML Syringe SUBCUT SCH (08:25)
[2022-08-09] MEDS: Nicotine 21 MG/24 Hr Patch TRDERM SCH (08:26)
[2022-08-09] MEDS: Mirtazapine 15 MG Tab PO SCH (21:01)
[2022-08-09] MEDS: traZODone 50 MG Tab PO SCH (21:02)
[2022-08-09] MEDS: Insulin Glargine,Human Rec. Analog 100 Units/ML 3 ML Pen SUBCUT SCH (21:02)
[2022-08-09] MEDS: Cyclobenzaprine 10 MG Tab PO PRN (22:40)
[2022-08-10] MEDS: hydrOXYzine HCl 25 MG Tab PO PRN ×2 (00:10→13:30)
[2022-08-10] MEDS: Acetaminophen/HYDROcodone 325-5 MG Tab PO PRN ×3 (00:10→17:55)
[2022-08-10] MEDS: Gabapentin 400 MG Cap PO SCH ×4 (06:47→21:11)
[2022-08-10 06:48] LABS: BASOPHILS ABSOLUTE AUTO 0.08 K/uL (0.00-0.10); BASOPHILS PERCENT AUTO 0.9 % (0.1-1.3); EOSINOPHILS ABSOLUTE AUTO 0.35 K/uL (0.00-0.40); EOSINOPHILS PERCENT AUTO 4.1 % (0.0-5.4); HEMATOCRIT 32.8 % (34.3-46.0); HEMOGLOBIN 11.1 g/dL (11.2-15.5); IMMATURE GRAN ABSOLUTE AUTO 0.06 K/uL (0.00-0.23); IMMATURE GRAN PERCENT AUTO 0.7 % (0.0-0.7); LYMPHOCYTES ABSOLUTE AUTO 3.58 K/uL (0.8-3.3); LYMPHOCYTES PERCENT AUTO 41.6 % (11.4-47.7); MEAN CORPUSCULAR HEMOGLOBIN 30.7 pg (31.6-35.5); MEAN CORPUSCULAR HGB CONC 33.8 g/dL (31.6-35.5); MEAN CORPUSCULAR VOLUME 90.6 fL (81.4-99.0); MONOCYTES ABSOLUTE AUTO 0.75 K/uL (0.20-0.90); MONOCYTES PERCENT AUTO 8.7 % (3.3-12.6); NEUTROPHILS ABSOLUTE AUTO 3.78 K/uL (1.0-7.6); PLATELET COUNT,PLT 334 K/uL (130-375); RED BLOOD CELL COUNT 3.62 M/uL (3.77-5.24); WHITE BLOOD CELL COUNT,WBC 8.6 K/uL (3.2-11.0)
[2022-08-10] MEDS ORDERED: Lactated Ringers 1,000 ML IV SCH (07:00)
[2022-08-10] MEDS ORDERED: Nozin Nasal Sanitizer NASBOTH ONE (07:00)
[2022-08-10 07:06] LABS: INR 0.9; PROTHROMBIN TIME 9.3 sec (9.2-10.6); PTT,PARTIAL THROMBOPLSTIN TIME 24.1 sec (21.8-27.3)
[2022-08-10 07:08] LABS: A/G RATIO 0.8 (1.2-2.2); ALANINE AMINOTRANSFERASE,ALT 21 U/L (12-78); ALKALINE PHOSPHATASE 122 U/L (46-116); ANION GAP 8.7 mmol/L (5.0-14.0); ASPARTATE AMNIOTRANSFERASE,AST 19 U/L (15-37); BILIRUBIN TOTAL 0.2 mg/dL (0.2-1.0); BLOOD UREA NITROGEN,BUN 24 mg/dL (7-18); CALCIUM 9.9 mg/dL (8.5-10.1); CARBON DIOXIDE,CO2 27 mmol/L (21-32); CHLORIDE,CL 104 mmol/L (100-108); CREATININE 1.1 mg/dL (0.6-1.0); EST CRCL DRUG DOSING (CG) 42.18 mL/min; ESTIMATED GFR 56 mL/min (>60); GLUCOSE RANDOM 138 mg/dL (74-106); POTASSIUM,K 4.9 mmol/L (3.6-5.2); PROTEIN TOTAL,TP 6.9 g/dL (6.4-8.2); SODIUM,NA 140 mmol/L (140-148)
[2022-08-10] MEDS: Insulin Lispro 100 Unit/ML 3 ML KwikPen SUBCUT SCH ×3 (07:26→16:23)
[2022-08-10] MEDS ORDERED: Bupivacaine 0.5% 30 ML SDV ONE (07:37)
[2022-08-10] MEDS: metFORMIN 500 MG Tab PO SCH ×2 (08:34→16:21)
[2022-08-10] MEDS ORDERED: Dexamethasone 4 MG/ML SDV ONE (09:27)
[2022-08-10] MEDS ORDERED: Propofol 200 MG/20 ML SDV ONE (09:27)
[2022-08-10] MEDS ORDERED: Glycopyrrolate 0.2 MG/ML 5 ML MDV ONE (09:27)
[2022-08-10] MEDS ORDERED: Ondansetron 4 MG/2 ML SDV ONE (09:27)
[2022-08-10] MEDS ORDERED: Succinylcholine 200 MG/10 ML MDV ONE (09:27)
[2022-08-10] MEDS ORDERED: Neostigmine Methylsulfate 1 MG/ML 5 ML Syringe ONE (09:27)
[2022-08-10] MEDS ORDERED: Rocuronium 50 MG/5 ML Vial ONE (09:27)
[2022-08-10] MEDS ORDERED: fentaNYL 250 MCG/5 ML SDV ONE (09:29)
[2022-08-10] MEDS ORDERED: ceFAZolin 1 GM in Premix Bag 1 BAG IV ONE (09:30)
[2022-08-10] MEDS ORDERED: Lactated Ringers 1,000 ML ONE (10:50)
[2022-08-10] MEDS ORDERED: fentaNYL 100 MCG/2 ML SDV ONE (11:56)
[2022-08-10] MEDS: Sodium Chloride 0.9% 1,000 ML IV SCH ×2 (13:31→22:00)
[2022-08-10] MEDS: Empagliflozin 10 MG Tab PO SCH (13:32)
[2022-08-10] MEDS: Nicotine 21 MG/24 Hr Patch TRDERM SCH (13:32)
[2022-08-10] MEDS: Metoprolol Succinate 50 MG Tab.ER PO SCH (13:33)
[2022-08-10] MEDS: traZODone 50 MG Tab PO SCH ×2 (14:06→21:11)
[2022-08-10] MEDS: traMADol 50 MG Tab PO PRN (16:33)
[2022-08-10] MEDS: ceFAZolin 1 GM in Premix Bag 1 BAG IV SCH (20:37)
[2022-08-10] MEDS: Insulin Glargine,Human Rec. Analog 100 Units/ML 3 ML Pen SUBCUT SCH (21:11)
[2022-08-10] MEDS: Mirtazapine 15 MG Tab PO SCH (21:11)
[2022-08-11] MEDS: ceFAZolin 1 GM in Premix Bag 1 BAG IV SCH (04:06)
[2022-08-11] MEDS: Acetaminophen/HYDROcodone 325-5 MG Tab PO PRN ×4 (05:47→19:20)
[2022-08-11] MEDS: Cyclobenzaprine 10 MG Tab PO PRN ×2 (05:47→15:14)
[2022-08-11] MEDS: Gabapentin 400 MG Cap PO SCH ×4 (06:06→21:01)
[2022-08-11] MEDS: traMADol 50 MG Tab PO PRN ×2 (07:22→13:05)
[2022-08-11] MEDS: metFORMIN 500 MG Tab PO SCH ×2 (08:04→17:53)
[2022-08-11] MEDS: Empagliflozin 10 MG Tab PO SCH (08:05)
[2022-08-11] MEDS: Metoprolol Succinate 50 MG Tab.ER PO SCH (08:05)
[2022-08-11] MEDS: Enoxaparin 30 MG/0.3 ML Syringe SUBCUT SCH (08:05)
[2022-08-11] MEDS: traZODone 50 MG Tab PO SCH ×2 (08:06→20:31)
[2022-08-11] MEDS: Nicotine 21 MG/24 Hr Patch TRDERM SCH (08:06)
[2022-08-11] MEDS: Insulin Lispro 100 Unit/ML 3 ML KwikPen SUBCUT SCH ×3 (08:07→16:51)
[2022-08-11] MEDS ORDERED: Enoxaparin 30 MG/0.3 ML Syringe SUBCUT SCH (09:00)
[2022-08-11] MEDS: hydrOXYzine HCl 25 MG Tab PO PRN ×2 (10:36→17:52)
[2022-08-11] MEDS: Mirtazapine 15 MG Tab PO SCH (20:31)
[2022-08-11] MEDS: Insulin Glargine,Human Rec. Analog 100 Units/ML 3 ML Pen SUBCUT SCH (21:01)
[2022-08-12] MEDS: Acetaminophen/HYDROcodone 325-5 MG Tab PO PRN ×5 (02:35→21:49)
[2022-08-12] MEDS: Gabapentin 400 MG Cap PO SCH ×5 (04:40→21:49)
[2022-08-12] MEDS: hydrOXYzine HCl 25 MG Tab PO PRN ×4 (04:40→20:05)
[2022-08-12] MEDS: Insulin Lispro 100 Unit/ML 3 ML KwikPen SUBCUT SCH ×3 (07:50→17:10)
[2022-08-12] MEDS: metFORMIN 500 MG Tab PO SCH ×2 (07:51→17:14)
[2022-08-12] MEDS: Enoxaparin 30 MG/0.3 ML Syringe SUBCUT SCH (09:16)
[2022-08-12] MEDS: Empagliflozin 10 MG Tab PO SCH (09:16)
[2022-08-12] MEDS: Nicotine 21 MG/24 Hr Patch TRDERM SCH (09:16)
[2022-08-12] MEDS: Metoprolol Succinate 50 MG Tab.ER PO SCH (09:17)
[2022-08-12] MEDS: traZODone 50 MG Tab PO SCH ×2 (09:17→21:49)
[2022-08-12] MEDS: traMADol 50 MG Tab PO PRN (20:05)
[2022-08-12] MEDS: Mirtazapine 15 MG Tab PO SCH (21:49)
[2022-08-12] MEDS: Insulin Glargine,Human Rec. Analog 100 Units/ML 3 ML Pen SUBCUT SCH (21:50)
[2022-08-13] MEDS: hydrOXYzine HCl 25 MG Tab PO PRN ×3 (05:28→17:10)
[2022-08-13] MEDS: Acetaminophen/HYDROcodone 325-5 MG Tab PO PRN ×4 (05:28→19:36)
[2022-08-13] MEDS: Gabapentin 400 MG Cap PO SCH ×4 (06:32→21:07)
[2022-08-13] MEDS: Insulin Lispro 100 Unit/ML 3 ML KwikPen SUBCUT SCH ×3 (07:29→16:28)
[2022-08-13] MEDS: metFORMIN 500 MG Tab PO SCH ×2 (08:14→17:10)
[2022-08-13] MEDS: traZODone 50 MG Tab PO SCH ×2 (08:14→21:07)
[2022-08-13] MEDS: Empagliflozin 10 MG Tab PO SCH (08:14)
[2022-08-13] MEDS: Metoprolol Succinate 50 MG Tab.ER PO SCH (08:14)
[2022-08-13] MEDS: Nicotine 21 MG/24 Hr Patch TRDERM SCH (08:15)
[2022-08-13] MEDS: Enoxaparin 30 MG/0.3 ML Syringe SUBCUT SCH (08:15)
[2022-08-13] MEDS: traMADol 50 MG Tab PO PRN ×2 (12:35→18:11)
[2022-08-13] MEDS: Cyclobenzaprine 10 MG Tab PO PRN (18:11)
[2022-08-13] MEDS: Insulin Glargine,Human Rec. Analog 100 Units/ML 3 ML Pen SUBCUT SCH (21:04)
[2022-08-13] MEDS: Mirtazapine 15 MG Tab PO SCH (21:11)
[2022-08-14] MEDS: Gabapentin 400 MG Cap PO SCH ×2 (06:14→09:10)
[2022-08-14] MEDS: Acetaminophen/HYDROcodone 325-5 MG Tab PO PRN ×4 (06:16→20:21)
[2022-08-14] MEDS: hydrOXYzine HCl 25 MG Tab PO PRN ×2 (06:16→17:42)
[2022-08-14] MEDS: metFORMIN 500 MG Tab PO SCH ×2 (09:05→17:39)
[2022-08-14] MEDS: Insulin Lispro 100 Unit/ML 3 ML KwikPen SUBCUT SCH ×3 (09:06→19:21)
[2022-08-14] MEDS: Empagliflozin 10 MG Tab PO SCH (09:07)
[2022-08-14] MEDS: Nicotine 21 MG/24 Hr Patch TRDERM SCH (09:08)
[2022-08-14] MEDS: traZODone 50 MG Tab PO SCH ×2 (09:10→20:21)
[2022-08-14] MEDS: Enoxaparin 40 MG/0.4 ML Syringe SUBCUT SCH (09:10)
[2022-08-14] MEDS: Metoprolol Succinate 50 MG Tab.ER PO SCH (09:11)
[2022-08-14] MEDS: Gabapentin 300 MG Cap PO SCH ×2 (15:08→20:21)
[2022-08-14] MEDS: Cyclobenzaprine 10 MG Tab PO PRN (19:18)
[2022-08-14] MEDS: Mirtazapine 15 MG Tab PO SCH (20:21)
[2022-08-14] MEDS: Insulin Glargine,Human Rec. Analog 100 Units/ML 3 ML Pen SUBCUT SCH (21:28)
[2022-08-15 06:05] LABS: BASOPHILS ABSOLUTE AUTO 0.07 K/uL (0.00-0.10); BASOPHILS PERCENT AUTO 0.9 % (0.1-1.3); EOSINOPHILS ABSOLUTE AUTO 0.24 K/uL (0.00-0.40); HEMATOCRIT 33.8 % (34.3-46.0); HEMOGLOBIN 11.7 g/dL (11.2-15.5); IMMATURE GRAN ABSOLUTE AUTO 0.12 K/uL (0.00-0.23); IMMATURE GRAN PERCENT AUTO 1.5 % (0.0-0.7); LYMPHOCYTES ABSOLUTE AUTO 3.23 K/uL (0.8-3.3); LYMPHOCYTES PERCENT AUTO 39.9 % (11.4-47.7); MEAN CORPUSCULAR HEMOGLOBIN 31.2 pg (31.6-35.5); MEAN CORPUSCULAR HGB CONC 34.6 g/dL (31.6-35.5); MEAN CORPUSCULAR VOLUME 90.1 fL (81.4-99.0); MONOCYTES ABSOLUTE AUTO 0.59 K/uL (0.20-0.90); MONOCYTES PERCENT AUTO 7.3 % (3.3-12.6); NEUTROPHILS ABSOLUTE AUTO 3.84 K/uL (1.0-7.6); NEUTROPHILS PERCENT AUTO 47.4 % (40.0-78.1); PLATELET COUNT,PLT 355 K/uL (130-375); RED BLOOD CELL COUNT 3.75 M/uL (3.77-5.24); WHITE BLOOD CELL COUNT,WBC 8.1 K/uL (3.2-11.0)
[2022-08-15 06:15] LABS: CALCIUM 9.7 mg/dL (8.5-10.1); CREATININE 0.8 mg/dL (0.6-1.0); EST CRCL DRUG DOSING (CG) 57.97 mL/min; POTASSIUM,K 4.2 mmol/L (3.6-5.2)
[2022-08-15 06:18] LABS: ANION GAP 13.2 mmol/L (5.0-14.0)
[2022-08-15] MEDS: Acetaminophen/HYDROcodone 325-5 MG Tab PO PRN ×4 (07:39→22:26)
[2022-08-15] MEDS: Nicotine 21 MG/24 Hr Patch TRDERM SCH (08:40)
[2022-08-15] MEDS: Gabapentin 300 MG Cap PO SCH ×3 (08:40→21:16)
[2022-08-15] MEDS: Metoprolol Succinate 50 MG Tab.ER PO SCH (08:41)
[2022-08-15] MEDS: Empagliflozin 10 MG Tab PO SCH (08:41)
[2022-08-15] MEDS: metFORMIN 500 MG Tab PO SCH ×2 (08:42→16:49)
[2022-08-15] MEDS: traZODone 50 MG Tab PO SCH ×2 (08:42→21:16)
[2022-08-15] MEDS: Insulin Lispro 100 Unit/ML 3 ML KwikPen SUBCUT SCH ×3 (08:43→16:50)
[2022-08-15] MEDS: Enoxaparin 40 MG/0.4 ML Syringe SUBCUT SCH (08:43)
[2022-08-15] MEDS: Cyclobenzaprine 10 MG Tab PO PRN (14:42)
[2022-08-15] MEDS: Insulin Glargine,Human Rec. Analog 100 Units/ML 3 ML Pen SUBCUT SCH (21:15)
[2022-08-15] MEDS: Mirtazapine 15 MG Tab PO SCH (21:16)
[2022-08-16] MEDS: Acetaminophen/HYDROcodone 325-5 MG Tab PO PRN ×3 (09:00→21:04)
[2022-08-16] MEDS: Metoprolol Succinate 50 MG Tab.ER PO SCH (09:01)
[2022-08-16] MEDS: Gabapentin 300 MG Cap PO SCH ×3 (09:02→21:04)
[2022-08-16] MEDS: Empagliflozin 10 MG Tab PO SCH (09:02)
[2022-08-16] MEDS: Nicotine 21 MG/24 Hr Patch TRDERM SCH (09:02)
[2022-08-16] MEDS: traZODone 50 MG Tab PO SCH ×2 (09:02→21:03)
[2022-08-16] MEDS: Enoxaparin 40 MG/0.4 ML Syringe SUBCUT SCH (09:02)
[2022-08-16] MEDS: Insulin Lispro 100 Unit/ML 3 ML KwikPen SUBCUT SCH ×3 (09:04→17:17)
[2022-08-16] MEDS: metFORMIN 500 MG Tab PO SCH ×2 (09:04→17:17)
[2022-08-16] MEDS: Cyclobenzaprine 10 MG Tab PO PRN ×2 (11:50→21:03)
[2022-08-16] MEDS: Mirtazapine 15 MG Tab PO SCH (21:03)
[2022-08-16] MEDS: Insulin Glargine,Human Rec. Analog 100 Units/ML 3 ML Pen SUBCUT SCH (21:04)
[2022-08-17] MEDS: Acetaminophen/HYDROcodone 325-5 MG Tab PO PRN ×5 (09:48→22:38)
[2022-08-17] MEDS: Enoxaparin 40 MG/0.4 ML Syringe SUBCUT SCH (09:51)
[2022-08-17] MEDS: Nicotine 21 MG/24 Hr Patch TRDERM SCH (09:52)
[2022-08-17] MEDS: traZODone 50 MG Tab PO SCH ×2 (09:52→21:38)
[2022-08-17] MEDS: metFORMIN 500 MG Tab PO SCH ×2 (09:53→18:25)
[2022-08-17] MEDS: Empagliflozin 10 MG Tab PO SCH (09:54)
[2022-08-17] MEDS: Metoprolol Succinate 50 MG Tab.ER PO SCH (09:56)
[2022-08-17] MEDS: Gabapentin 300 MG Cap PO SCH ×3 (09:57→21:36)
[2022-08-17] MEDS: Insulin Lispro 100 Unit/ML 3 ML KwikPen SUBCUT SCH ×3 (09:58→17:49)
[2022-08-17] MEDS: Mirtazapine 15 MG Tab PO SCH (21:36)
[2022-08-17] MEDS: Insulin Glargine,Human Rec. Analog 100 Units/ML 3 ML Pen SUBCUT SCH (21:38)
[2022-08-17] MEDS: Cyclobenzaprine 10 MG Tab PO PRN (22:39)
[2022-08-18] MEDS: Acetaminophen/HYDROcodone 325-5 MG Tab PO PRN ×3 (03:17→14:08)
[2022-08-18] MEDS: Insulin Lispro 100 Unit/ML 3 ML KwikPen SUBCUT SCH ×2 (09:16→12:39)
[2022-08-18] MEDS: Enoxaparin 40 MG/0.4 ML Syringe SUBCUT SCH (09:26)
[2022-08-18] MEDS: Metoprolol Succinate 50 MG Tab.ER PO SCH (09:28)
[2022-08-18] MEDS: Gabapentin 300 MG Cap PO SCH ×2 (09:28→14:08)
[2022-08-18] MEDS: traZODone 50 MG Tab PO SCH (09:30)
[2022-08-18] MEDS: Empagliflozin 10 MG Tab PO SCH (09:30)
[2022-08-18] MEDS: metFORMIN 500 MG Tab PO SCH (09:31)
[2022-08-18] MEDS: Nicotine 21 MG/24 Hr Patch TRDERM SCH (09:34)
[2022-08-18 10:22] VITALS: BP 119/59; PULSE 72
== END 2022-08-18 14:38 | disposition other institution (70) | DRG 493 ==
LOC: JP.ED 06:05 → JP.MS 08:42
PROVIDERS: ADMIT Internal Medicine; ATTEND Internal Medicine
PROC: 0QSG04Z Reposition Right Tibia with Internal Fixation Device, Open Approach (ICD-10-PCS; principal; 2022-08-10)
DX: R53.1 Weakness (principal); R41.0 Disorientation, unspecified; E86.0 Dehydration; S82.841A Displaced bimalleolar fracture of right lower leg, initial encounter for closed fracture; R29.6 Repeated falls; Z20.822 Contact with and (suspected) exposure to COVID-19; S06.0XAA Concussion with loss of consciousness status unknown, initial encounter; E11.9 Type 2 diabetes mellitus without complications; J44.9 Chronic obstructive pulmonary disease, unspecified; I10 Essential (primary) hypertension; E78.00 Pure hypercholesterolemia, unspecified; F17.200 Nicotine dependence, unspecified, uncomplicated; M54.2 Cervicalgia; F41.9 Anxiety disorder, unspecified; M54.50 Low back pain, unspecified; F17.210 Nicotine dependence, cigarettes, uncomplicated; G89.4 Chronic pain syndrome; G47.00 Insomnia, unspecified; F32.A Depression, unspecified; Z79.4 Long term (current) use of insulin; W19.XXXA Unspecified fall, initial encounter; E78.5 Hyperlipidemia, unspecified; K21.9 Gastro-esophageal reflux disease without esophagitis; N18.9 Chronic kidney disease, unspecified; I12.9 Hypertensive chronic kidney disease with stage 1 through stage 4 chronic kidney disease, or unspecified chronic kidney disease; E11.22 Type 2 diabetes mellitus with diabetic chronic kidney disease; W18.30XA Fall on same level, unspecified, initial encounter; I48.91 Unspecified atrial fibrillation; I25.10 Atherosclerotic heart disease of native coronary artery without angina pectoris; M19.90 Unspecified osteoarthritis, unspecified site; M79.7 Fibromyalgia; F43.10 Post-traumatic stress disorder, unspecified; F41.0 Panic disorder [episodic paroxysmal anxiety]; E66.9 Obesity, unspecified; M81.0 Age-related osteoporosis without current pathological fracture; M32.9 Systemic lupus erythematosus, unspecified; D63.1 Anemia in chronic kidney disease; Z79.899 Other long term (current) drug therapy; Z98.890 Other specified postprocedural states; Z93.3 Colostomy status; Z88.8 Allergy status to other drugs, medicaments and biological substances; Z88.1 Allergy status to other antibiotic agents; Z88.0 Allergy status to penicillin; Z86.718 Personal history of other venous thrombosis and embolism; I25.2 Old myocardial infarction; Z93.2 Ileostomy status; Z88.2 Allergy status to sulfonamides; Z88.5 Allergy status to narcotic agent; Z90.49 Acquired absence of other specified parts of digestive tract
CPT/HCPCS: 36415; 70450; 80053; 80305; 81001; 85025; 96374; 99284; 99285; J7030; U0002; 76000; 80048; 82947; 85610; 85730; 93005; 93010; 97110-GP; 97161-GP; 97165-GO; 97530-GP; A9270-GY; C1713; J0330; J0690; J1100; J1650; J1815; J1815-GY; J2405; J2704; J2710; J3010; J3490; J7120

== ENCOUNTER 2023-03-04 13:23 | Inpatient (IN) | payer MEDICARE, MEDICAID ==
[2023-03-04 14:02] LABS: BASOPHILS ABSOLUTE AUTO 0.05 K/uL (0.00-0.10); BASOPHILS PERCENT AUTO 0.7 % (0.1-1.3); EOSINOPHILS ABSOLUTE AUTO 0.15 K/uL (0.00-0.40); EOSINOPHILS PERCENT AUTO 2.1 % (0.0-5.4); HEMATOCRIT 41.3 % (34.3-46.0); HEMOGLOBIN 14.1 g/dL (11.2-15.5); IMMATURE GRAN ABSOLUTE AUTO 0.03 K/uL (0.00-0.23); IMMATURE GRAN PERCENT AUTO 0.4 % (0.0-0.7); LYMPHOCYTES ABSOLUTE AUTO 2.15 K/uL (0.8-3.3); LYMPHOCYTES PERCENT AUTO 30.4 % (11.4-47.7); MEAN CORPUSCULAR HEMOGLOBIN 29.5 pg (31.6-35.5); MEAN CORPUSCULAR HGB CONC 34.1 g/dL (31.6-35.5); MEAN CORPUSCULAR VOLUME 86.4 fL (81.4-99.0); MONOCYTES ABSOLUTE AUTO 0.53 K/uL (0.20-0.90); MONOCYTES PERCENT AUTO 7.5 % (3.3-12.6); NEUTROPHILS ABSOLUTE AUTO 4.16 K/uL (1.0-7.6); NEUTROPHILS PERCENT AUTO 58.9 % (40.0-78.1); PLATELET COUNT,PLT 318 K/uL (130-375); RED BLOOD CELL COUNT 4.78 M/uL (3.77-5.24); WHITE BLOOD CELL COUNT,WBC 7.1 K/uL (3.2-11.0)
[2023-03-04 14:18] LABS: ANION GAP 16.5 mmol/L (5.0-14.0); BLOOD UREA NITROGEN,BUN 24 mg/dL (7-18); CALCIUM 9.1 mg/dL (8.5-10.1); CARBON DIOXIDE,CO2 22 mmol/L (21-32); CHLORIDE,CL 100 mmol/L (100-108); CREATININE 1.5 mg/dL (0.6-1.0); ESTIMATED GFR 38 mL/min (>60); GLUCOSE RANDOM 120 mg/dL (74-106); POTASSIUM,K 4.5 mmol/L (3.6-5.2); SODIUM,NA 134 mmol/L (140-148)
[2023-03-04 14:20] LABS: APPEARANCE,URINE CLOUDY (CLEAR); BILIRUBIN,URINE NEGATIVE (NEGATIVE); COLOR,URINE YELLOW (YELLOW); GLUCOSE,URINE 500 mg/dL (NEGATIVE); KETONES,URINE NEGATIVE (NEGATIVE); LEUKOCYTE ESTERASE,URINE TRACE (NEGATIVE); NITRITE,URINE POSITIVE (NEGATIVE); OCCULT BLOOD,URINE TRACE-INTACT (NEGATIVE); PH,URINE 5.5 (5.0-8.0); PROTEIN,URINE NEGATIVE (NEGATIVE); UROBILINOGEN,URINE 0.2 EU/dL (0.2-1.0)
[2023-03-04 14:26] LABS: AMPHETAMINES SCREEN, URINE NEGATIVE (NEGATIVE); BARBITURATE SCREEN,URINE NEGATIVE (NEGATIVE); BENZODIAZEPINES SCREEN,URINE NEGATIVE (NEGATIVE); METHADONE SCREEN, URINE NEGATIVE (NEGATIVE); METHAMPHETAMINES SCREEN, URINE NEGATIVE (NEGATIVE); OXYCODONE SCREEN,URINE NEGATIVE (NEGATIVE); PROPOXYPHENE SCREEN,URINE NEGATIVE (NEGATIVE); THC SCREEN,URINE 50 NG/ML NEGATIVE (NEGATIVE)
[2023-03-04] MEDS ORDERED: Sodium Chloride 0.9% 1,000 ML IV ONE (14:26)
[2023-03-04] MEDS ORDERED: Magnesium Oxide 400 MG Tab PO ONE (14:33)
[2023-03-04 14:36] LABS: AMORPHOUS SEDIMENT,URINE NOT SEEN; BACTERIA,URINE MANY; EPITHELIAL CELLS,URINE MANY; MUCUS,URINE NOT SEEN; WBC,URINE 40-50 (0-5)
[2023-03-04] MEDS ORDERED: Levofloxacin/Dextrose 5%-Water 500 MG in Premix Bag 1 BAG IV ONE (16:07)
[2023-03-04] MEDS ORDERED: cefTRIAXone 1 GM in Sodium Chloride 0.9% 50 ML IV ONE (16:33)
[2023-03-04] MEDS ORDERED: Cyclobenzaprine 10 MG Tab PO PRN (16:57)
[2023-03-04] MEDS ORDERED: Glucagon,Human Recombinant 1 MG Vial IM PRN (16:57)
[2023-03-04] MEDS ORDERED: 50% Dextrose in Water 50 ML Syringe IVPUSH PRN (16:57)
[2023-03-04] MEDS ORDERED: Nitroglycerin 0.4 MG Tab.SL SL PRN (16:57)
[2023-03-04] MEDS ORDERED: metFORMIN 500 MG Tab PO SCH (17:00)
[2023-03-04] MEDS ORDERED: Insulin Lispro 100 Unit/ML 3 ML KwikPen SUBCUT SCH (17:00)
[2023-03-04 18:29] LABS: CORONAVIRUS COVID-19 NAA NEGATIVE (NEGATIVE); INFLUENZA A NAA NEGATIVE (NEGATIVE); INFLUENZA B NAA NEGATIVE (NEGATIVE); RESPIRATORY SYNCYTIAL VIR NAA NEGATIVE (NEGATIVE)
[2023-03-04] MEDS: Insulin Lispro 100 Unit/ML 3 ML KwikPen SUBCUT SCH (20:44)
[2023-03-04] MEDS ORDERED: Gabapentin 400 MG Cap PO SCH (21:00)
[2023-03-04] MEDS ORDERED: Mirtazapine 15 MG Tab PO SCH (21:00)
[2023-03-04] MEDS ORDERED: Non-Formulary Medication 1 Each (Trazodone Hcl [Trazodone Hcl] 100 MG Tablet) PO SCH (21:00)
[2023-03-04] MEDS ORDERED: Insulin Glargine,Human Rec. Analog 100 Units/ML 3 ML Pen SUBCUT SCH ×2 (21:00)
[2023-03-04] MEDS ORDERED: traZODone 50 MG Tab PO SCH (22:02)
[2023-03-04] MEDS: metFORMIN 500 MG Tab PO SCH (22:07)
[2023-03-04] MEDS: Gabapentin 400 MG Cap PO SCH (22:31)
[2023-03-05 06:43] LABS: BASOPHILS ABSOLUTE AUTO 0.06 K/uL (0.00-0.10); BASOPHILS PERCENT AUTO 0.8 % (0.1-1.3); EOSINOPHILS ABSOLUTE AUTO 0.17 K/uL (0.00-0.40); EOSINOPHILS PERCENT AUTO 2.3 % (0.0-5.4); HEMATOCRIT 36.7 % (34.3-46.0); HEMOGLOBIN 12.2 g/dL (11.2-15.5); IMMATURE GRAN PERCENT AUTO 0.3 % (0.0-0.7); LYMPHOCYTES ABSOLUTE AUTO 2.73 K/uL (0.8-3.3); LYMPHOCYTES PERCENT AUTO 36.5 % (11.4-47.7); MEAN CORPUSCULAR HEMOGLOBIN 29.5 pg (31.6-35.5); MEAN CORPUSCULAR HGB CONC 33.2 g/dL (31.6-35.5); MEAN CORPUSCULAR VOLUME 88.9 fL (81.4-99.0); MONOCYTES ABSOLUTE AUTO 0.62 K/uL (0.20-0.90); MONOCYTES PERCENT AUTO 8.3 % (3.3-12.6); NEUTROPHILS ABSOLUTE AUTO 3.87 K/uL (1.0-7.6); NEUTROPHILS PERCENT AUTO 51.8 % (40.0-78.1); PLATELET COUNT,PLT 255 K/uL (130-375); RED BLOOD CELL COUNT 4.13 M/uL (3.77-5.24); WHITE BLOOD CELL COUNT,WBC 7.5 K/uL (3.2-11.0)
[2023-03-05 06:44] LABS: IMMATURE GRAN ABSOLUTE AUTO 0.02 K/uL (0.00-0.23)
[2023-03-05 06:56] LABS: CALCIUM 8.5 mg/dL (8.5-10.1); CREATININE 1.3 mg/dL (0.6-1.0); EST CRCL DRUG DOSING (CG) 35.21 mL/min; POTASSIUM,K 4.9 mmol/L (3.6-5.2)
[2023-03-05 07:11] LABS: ANION GAP 12.9 mmol/L (5.0-14.0)
[2023-03-05] MEDS ORDERED: Pantoprazole 40 MG Tab.CR PO SCH (07:30)
[2023-03-05] MEDS: Insulin Lispro 100 Unit/ML 3 ML KwikPen SUBCUT SCH ×4 (07:37→11:10)
[2023-03-05] MEDS: metFORMIN 500 MG Tab PO SCH (08:28)
[2023-03-05] MEDS: Gabapentin 400 MG Cap PO SCH (08:29)
[2023-03-05] MEDS ORDERED: Metoprolol Succinate 50 MG Tab.ER PO SCH (09:00)
[2023-03-05] MEDS ORDERED: traZODone 50 MG Tab PO SCH (09:00)
[2023-03-05] MEDS ORDERED: Non-Formulary Medication 1 Each (Empagliflozin [Jardiance] 25 MG Tablet) PO SCH (09:00)
[2023-03-05] MEDS ORDERED: Non-Formulary Medication 1 Each (Dapagliflozin Propanediol [Farxiga] 10 MG Tablet) PO SCH (09:00)
[2023-03-05] MEDS ORDERED: Empagliflozin 10 MG Tab PO SCH (09:00)
[2023-03-05] MEDS ORDERED: LINAGLIPTIN 5 MG PO SCH (09:00)
[2023-03-05 11:06] VITALS: BP 128/61; PULSE 73
[2023-03-05] MEDS ORDERED: cefTRIAXone 1 GM in Sodium Chloride 0.9% 50 ML IV SCH (18:00)
== END 2023-03-05 11:52 | disposition home or self-care (01) | DRG 690 ==
LOC: JP.ED 13:23 → JP.MS 16:51
PROVIDERS: ADMIT Internal Medicine; ATTEND Internal Medicine
DX: N30.01 Acute cystitis with hematuria (principal); I48.91 Unspecified atrial fibrillation; I10 Essential (primary) hypertension; I25.10 Atherosclerotic heart disease of native coronary artery without angina pectoris; I25.2 Old myocardial infarction; J44.9 Chronic obstructive pulmonary disease, unspecified; D64.9 Anemia, unspecified; E11.9 Type 2 diabetes mellitus without complications; E78.00 Pure hypercholesterolemia, unspecified; M25.579 Pain in unspecified ankle and joints of unspecified foot; F17.210 Nicotine dependence, cigarettes, uncomplicated; Z88.6 Allergy status to analgesic agent; Z11.52 Encounter for screening for COVID-19; Z79.4 Long term (current) use of insulin; Z79.84 Long term (current) use of oral hypoglycemic drugs; E66.9 Obesity, unspecified; Z68.23 Body mass index [BMI] 23.0-23.9, adult; Z72.0 Tobacco use; Z88.0 Allergy status to penicillin; Z88.1 Allergy status to other antibiotic agents; Z90.710 Acquired absence of both cervix and uterus; Z90.49 Acquired absence of other specified parts of digestive tract; Z90.89 Acquired absence of other organs; Z98.890 Other specified postprocedural states; Z88.8 Allergy status to other drugs, medicaments and biological substances; Z88.2 Allergy status to sulfonamides; Z88.5 Allergy status to narcotic agent; Z79.899 Other long term (current) drug therapy
CPT/HCPCS: 0241U; 36415; 70450; 80048; 80305; 81001; 82947; 83605; 83735; 84145; 85025; 87040; 87086; 87088; 87186; 96360; 99285; A9270-GY; J0696; J1815; J1815-GY; J3490; J7030

== ENCOUNTER 2023-03-15 13:09 | Emergency (ER) | payer MEDICARE, MEDICAID | END 2023-03-15 14:21 | disposition left against medical advice (07) | LOC: JP.ED 13:09 | DX: Z53.21 Procedure and treatment not carried out due to patient leaving prior to being seen by health care provider (principal) ==

== ENCOUNTER 2023-03-24 15:00 | Inpatient (IN) | payer MEDICARE, MEDICAID ==
[2023-03-24] MEDS ORDERED: Sodium Chloride 0.9% 10 ML Syringe FLUSH PRN (15:26)
[2023-03-24] MEDS ORDERED: Pantoprazole 40 MG Tab.CR PO ONE (15:36)
[2023-03-24] MEDS ORDERED: Sodium Chloride 0.9% 1,000 ML IV ONE ×2 (15:36→16:33)
[2023-03-24 16:06] LABS: BASOPHILS ABSOLUTE AUTO 0.03 K/uL (0.00-0.10); BASOPHILS PERCENT AUTO 0.2 % (0.1-1.3); EOSINOPHILS PERCENT AUTO 0.1 % (0.0-5.4); HEMATOCRIT 41.9 % (34.3-46.0); HEMOGLOBIN 14.9 g/dL (11.2-15.5); IMMATURE GRAN ABSOLUTE AUTO 0.13 K/uL (0.00-0.23); IMMATURE GRAN PERCENT AUTO 0.8 % (0.0-0.7); LYMPHOCYTES ABSOLUTE AUTO 1.49 K/uL (0.8-3.3); LYMPHOCYTES PERCENT AUTO 9.1 % (11.4-47.7); MEAN CORPUSCULAR HEMOGLOBIN 29.9 pg (31.6-35.5); MEAN CORPUSCULAR HGB CONC 35.6 g/dL (31.6-35.5); MEAN CORPUSCULAR VOLUME 84.1 fL (81.4-99.0); MONOCYTES ABSOLUTE AUTO 0.82 K/uL (0.20-0.90); NEUTROPHILS ABSOLUTE AUTO 13.92 K/uL (1.0-7.6); NEUTROPHILS PERCENT AUTO 84.8 % (40.0-78.1); PLATELET COUNT,PLT 315 K/uL (130-375); RED BLOOD CELL COUNT 4.98 M/uL (3.77-5.24); WHITE BLOOD CELL COUNT,WBC 16.4 K/uL (3.2-11.0)
[2023-03-24 16:11] LABS: EOSINOPHILS ABSOLUTE AUTO 0.01 K/uL (0.00-0.40)
[2023-03-24 16:27] LABS: PTT,PARTIAL THROMBOPLSTIN TIME 18.7 sec (21.8-27.3)
[2023-03-24 16:28] LABS: A/G RATIO 1.1 (1.2-2.2); ALANINE AMINOTRANSFERASE,ALT 24 U/L (12-78); ALBUMIN 4.2 g/dL (3.4-5.0); ALKALINE PHOSPHATASE 95 U/L (46-116); ASPARTATE AMNIOTRANSFERASE,AST 9 U/L (15-37); BILIRUBIN TOTAL 0.4 mg/dL (0.2-1.0); BLOOD UREA NITROGEN,BUN 61 mg/dL (7-18); CALCIUM 9.9 mg/dL (8.5-10.1); CARBON DIOXIDE,CO2 20 mmol/L (21-32); CHLORIDE,CL 94 mmol/L (100-108); CREATINE KINASE,CK 136 U/L (26-192); CREATININE 1.4 mg/dL (0.6-1.0); EST CRCL DRUG DOSING (CG) 31.26 mL/min; ESTIMATED GFR 41 mL/min (>60); POTASSIUM,K 4.5 mmol/L (3.6-5.2); SODIUM,NA 129 mmol/L (140-148)
[2023-03-24 16:32] LABS: ANION GAP 19.5 mmol/L (5.0-14.0); GLUCOSE RANDOM 495 mg/dL (74-106)
[2023-03-24 16:39] LABS: MAGNESIUM 1.4 mg/dL (1.8-2.4); TROPONIN I HIGH SENSITIVITY 7.2 pg/mL (<=60.3); TSH ULTRASENSITIVE 0.55 uIU/mL (0.358-3.740)
[2023-03-24] MEDS ORDERED: Sodium Chloride 0.9% 100 ML IV SCH (16:45)
[2023-03-24 16:46] LABS: CORONAVIRUS COVID-19 NAA NEGATIVE (NEGATIVE); INFLUENZA A NAA NEGATIVE (NEGATIVE); INFLUENZA B NAA NEGATIVE (NEGATIVE); RESPIRATORY SYNCYTIAL VIR NAA NEGATIVE (NEGATIVE)
[2023-03-24] MEDS: Iopamidol 612 MG/ML 100 ML Bottle IV PRN ×2 (16:46→16:47)
[2023-03-24 17:07] LABS: APPEARANCE,URINE SLIGHTLY CLOUDY (CLEAR); BILIRUBIN,URINE NEGATIVE (NEGATIVE); COLOR,URINE YELLOW (YELLOW); GLUCOSE,URINE 500 mg/dL (NEGATIVE); KETONES,URINE 15 mg/dL (NEGATIVE); LEUKOCYTE ESTERASE,URINE NEGATIVE (NEGATIVE); NITRITE,URINE NEGATIVE (NEGATIVE); OCCULT BLOOD,URINE NEGATIVE (NEGATIVE); PH,URINE 5.5 (5.0-8.0); PROTEIN,URINE NEGATIVE (NEGATIVE); UROBILINOGEN,URINE 0.2 EU/dL (0.2-1.0)
[2023-03-24 17:13] LABS: AMORPHOUS SEDIMENT,URINE NOT SEEN; BACTERIA,URINE MANY; EPITHELIAL CELLS,URINE FEW; MUCUS,URINE NOT SEEN; RBC,URINE 0-5 (0-5); WBC,URINE 0-5 (0-5)
[2023-03-24] MEDS ORDERED: 50% Dextrose in Water 50 ML Syringe IVPUSH PRN ×2 (19:01→20:42)
[2023-03-24] MEDS ORDERED: Glucagon,Human Recombinant 1 MG Vial IM PRN ×2 (19:01→20:42)
[2023-03-24] MEDS ORDERED: Insulin Lispro 100 Unit/ML 3 ML KwikPen SUBCUT ONE (19:01)
[2023-03-24] MEDS: Sodium Chloride 0.9% 1,000 ML IV SCH (20:19)
[2023-03-24] MEDS ORDERED: Cyclobenzaprine 10 MG Tab PO PRN (20:42)
[2023-03-24] MEDS ORDERED: Nitroglycerin 0.4 MG Tab.SL SL PRN (20:42)
[2023-03-24] MEDS ORDERED: Non-Formulary Medication 1 Each (Evolocumab [Repatha Sureclick] 140 MG) SQ SCH (20:45)
[2023-03-24] MEDS ORDERED: Gabapentin 400 MG Cap PO SCH (21:00)
[2023-03-24] MEDS: Insulin Glargine,Human Rec. Analog 100 Units/ML 3 ML Pen SUBCUT SCH (21:58)
[2023-03-24] MEDS: Ondansetron 4 MG Tab.DIS PO PRN (21:59)
[2023-03-24] MEDS: Mirtazapine 15 MG Tab PO SCH (21:59)
[2023-03-25] MEDS: Sodium Chloride 0.9% 1,000 ML IV SCH ×2 (04:16→16:07)
[2023-03-25] MEDS: Ondansetron 4 MG Tab.DIS PO PRN (07:36)
[2023-03-25] MEDS: Insulin Lispro 100 Unit/ML 3 ML KwikPen SUBCUT SCH ×7 (07:37→21:25)
[2023-03-25] MEDS: Pantoprazole 40 MG Tab.CR PO SCH (07:39)
[2023-03-25] MEDS: metFORMIN 500 MG Tab PO SCH ×2 (07:40→16:49)
[2023-03-25] MEDS: Metoprolol Succinate 50 MG Tab.ER PO SCH (08:49)
[2023-03-25] MEDS: Empagliflozin 10 MG Tab PO SCH (08:50)
[2023-03-25] MEDS: traZODone 50 MG Tab PO SCH (08:50)
[2023-03-25] MEDS ORDERED: Enoxaparin 40 MG/0.4 ML Syringe SUBCUT SCH (16:00)
[2023-03-25] MEDS ORDERED: traZODone 50 MG Tab PO SCH (21:00)
[2023-03-25] MEDS: Insulin Glargine,Human Rec. Analog 100 Units/ML 3 ML Pen SUBCUT SCH (21:46)
[2023-03-25] MEDS: Mirtazapine 15 MG Tab PO SCH (21:47)
[2023-03-26] MEDS: Sodium Chloride 0.9% 1,000 ML IV SCH (00:19)
[2023-03-26 04:56] LABS: BASOPHILS ABSOLUTE AUTO 0.03 K/uL (0.00-0.10); BASOPHILS PERCENT AUTO 0.3 % (0.1-1.3); EOSINOPHILS ABSOLUTE AUTO 0.09 K/uL (0.00-0.40); HEMATOCRIT 31.9 % (34.3-46.0); HEMOGLOBIN 10.8 g/dL (11.2-15.5); IMMATURE GRAN ABSOLUTE AUTO 0.06 K/uL (0.00-0.23); IMMATURE GRAN PERCENT AUTO 0.6 % (0.0-0.7); LYMPHOCYTES ABSOLUTE AUTO 3.16 K/uL (0.8-3.3); LYMPHOCYTES PERCENT AUTO 33.9 % (11.4-47.7); MEAN CORPUSCULAR HEMOGLOBIN 29.3 pg (31.6-35.5); MEAN CORPUSCULAR HGB CONC 33.9 g/dL (31.6-35.5); MEAN CORPUSCULAR VOLUME 86.4 fL (81.4-99.0); MONOCYTES ABSOLUTE AUTO 0.71 K/uL (0.20-0.90); MONOCYTES PERCENT AUTO 7.6 % (3.3-12.6); NEUTROPHILS ABSOLUTE AUTO 5.27 K/uL (1.0-7.6); NEUTROPHILS PERCENT AUTO 56.6 % (40.0-78.1); PLATELET COUNT,PLT 221 K/uL (130-375); RED BLOOD CELL COUNT 3.69 M/uL (3.77-5.24); WHITE BLOOD CELL COUNT,WBC 9.3 K/uL (3.2-11.0)
[2023-03-26 05:17] LABS: CALCIUM 7.5 mg/dL (8.5-10.1); CREATININE 0.8 mg/dL (0.6-1.0); EST CRCL DRUG DOSING (CG) 54.71 mL/min; POTASSIUM,K 3.2 mmol/L (3.6-5.2)
[2023-03-26 05:26] LABS: ANION GAP 12.2 mmol/L (5.0-14.0)
[2023-03-26] MEDS: metFORMIN 500 MG Tab PO SCH (07:20)
[2023-03-26] MEDS: Pantoprazole 40 MG Tab.CR PO SCH (07:20)
[2023-03-26] MEDS: Insulin Lispro 100 Unit/ML 3 ML KwikPen SUBCUT SCH ×3 (07:32→11:45)
[2023-03-26] MEDS: Empagliflozin 10 MG Tab PO SCH (08:25)
[2023-03-26] MEDS: traZODone 50 MG Tab PO SCH (08:25)
[2023-03-26] MEDS: Metoprolol Succinate 50 MG Tab.ER PO SCH (08:26)
[2023-03-26 11:45] VITALS: BP 131/62; PULSE 65
== END 2023-03-26 13:10 | disposition left against medical advice (07) | DRG 638 ==
LOC: JP.ED 15:00 → JP.ICU 19:34
PROVIDERS: ADMIT Internal Medicine; ATTEND Internal Medicine
DX: E86.0 Dehydration (principal); R53.1 Weakness; N17.9 Acute kidney failure, unspecified; E87.1 Hypo-osmolality and hyponatremia; I48.91 Unspecified atrial fibrillation; J44.9 Chronic obstructive pulmonary disease, unspecified; K27.9 Peptic ulcer, site unspecified, unspecified as acute or chronic, without hemorrhage or perforation; M81.0 Age-related osteoporosis without current pathological fracture; I25.10 Atherosclerotic heart disease of native coronary artery without angina pectoris; D64.9 Anemia, unspecified; M32.9 Systemic lupus erythematosus, unspecified; R10.84 Generalized abdominal pain; R10.9 Unspecified abdominal pain; R11.2 Nausea with vomiting, unspecified; R41.0 Disorientation, unspecified; F17.210 Nicotine dependence, cigarettes, uncomplicated; E71.32 Disorders of ketone metabolism; E11.65 Type 2 diabetes mellitus with hyperglycemia; R63.4 Abnormal weight loss; I10 Essential (primary) hypertension; Z93.2 Ileostomy status; I25.2 Old myocardial infarction; J45.909 Unspecified asthma, uncomplicated; E66.9 Obesity, unspecified; Z88.1 Allergy status to other antibiotic agents; Z90.49 Acquired absence of other specified parts of digestive tract; Z90.710 Acquired absence of both cervix and uterus; Z98.890 Other specified postprocedural states; Z11.52 Encounter for screening for COVID-19; Z87.11 Personal history of peptic ulcer disease; Z88.2 Allergy status to sulfonamides; Z88.0 Allergy status to penicillin; Z88.8 Allergy status to other drugs, medicaments and biological substances; Z88.6 Allergy status to analgesic agent; Z88.5 Allergy status to narcotic agent; Z79.84 Long term (current) use of oral hypoglycemic drugs; Z79.4 Long term (current) use of insulin; Z79.899 Other long term (current) drug therapy; Z68.27 Body mass index [BMI] 27.0-27.9, adult; Z20.822 Contact with and (suspected) exposure to COVID-19
CPT/HCPCS: 0241U; 36415; 51798; 70450; 74177; 80048; 80053; 81001; 82009; 82550; 82800; 82947; 83605; 83690; 83735; 84443; 84484; 85025; 85610; 85730; 87086; 87088; 87186; 93005; 93925; 96360; 96361; 97110; 97129; 97161; 97166; 97530; 99285; A9270-GY; J1650; J1815; J1815-GY; J3490; J7030; Q0162; Q9967

== ENCOUNTER 2023-05-11 18:35 | Inpatient (IN) | payer MEDICARE, MEDICAID ==
[2023-05-11 19:25] LABS: BASOPHILS ABSOLUTE AUTO 0.03 K/uL (0.00-0.10); BASOPHILS PERCENT AUTO 0.3 % (0.1-1.3); EOSINOPHILS ABSOLUTE AUTO 0.09 K/uL (0.00-0.40); EOSINOPHILS PERCENT AUTO 0.8 % (0.0-5.4); HEMATOCRIT 37.3 % (34.3-46.0); HEMOGLOBIN 13.3 g/dL (11.2-15.5); IMMATURE GRAN ABSOLUTE AUTO 0.05 K/uL (0.00-0.23); IMMATURE GRAN PERCENT AUTO 0.4 % (0.0-0.7); LYMPHOCYTES ABSOLUTE AUTO 1.01 K/uL (0.8-3.3); LYMPHOCYTES PERCENT AUTO 8.5 % (11.4-47.7); MEAN CORPUSCULAR HEMOGLOBIN 30.2 pg (31.6-35.5); MEAN CORPUSCULAR HGB CONC 35.7 g/dL (31.6-35.5); MEAN CORPUSCULAR VOLUME 84.6 fL (81.4-99.0); MONOCYTES ABSOLUTE AUTO 0.45 K/uL (0.20-0.90); MONOCYTES PERCENT AUTO 3.8 % (3.3-12.6); NEUTROPHILS ABSOLUTE AUTO 10.24 K/uL (1.0-7.6); NEUTROPHILS PERCENT AUTO 86.2 % (40.0-78.1); PLATELET COUNT,PLT 344 K/uL (130-375); RED BLOOD CELL COUNT 4.41 M/uL (3.77-5.24); WHITE BLOOD CELL COUNT,WBC 11.9 K/uL (3.2-11.0)
[2023-05-11] MEDS: Sodium Chloride 0.9% 1,000 ML IV SCH (19:30)
[2023-05-11] MEDS: Ondansetron 4 MG/2 ML SDV IVPUSH ONE ×2 (19:34→21:26)
[2023-05-11 19:58] LABS: A/G RATIO 0.7 (1.2-2.2); ALANINE AMINOTRANSFERASE,ALT 26 U/L (12-78); ALBUMIN 3.3 g/dL (3.4-5.0); ALKALINE PHOSPHATASE 124 U/L (46-116); ASPARTATE AMNIOTRANSFERASE,AST 14 U/L (15-37); BILIRUBIN TOTAL 0.5 mg/dL (0.2-1.0); BLOOD UREA NITROGEN,BUN 36 mg/dL (7-18); CARBON DIOXIDE,CO2 25 mmol/L (21-32); CHLORIDE,CL 90 mmol/L (100-108); CREATININE 1.6 mg/dL (0.6-1.0); EST CRCL DRUG DOSING (CG) 28.61 mL/min; ESTIMATED GFR 35 mL/min (>60); GLUCOSE RANDOM 370 mg/dL (74-106); PROTEIN TOTAL,TP 8.1 g/dL (6.4-8.2); SODIUM,NA 130 mmol/L (140-148)
[2023-05-11 20:00] LABS: ANION GAP 17.9 mmol/L (5.0-14.0); POTASSIUM,K 2.9 mmol/L (3.6-5.2)
[2023-05-11] MEDS ORDERED: Glucagon,Human Recombinant 1 MG Vial IM PRN ×2 (20:08→22:55)
[2023-05-11] MEDS ORDERED: 50% Dextrose in Water 50 ML Syringe IVPUSH PRN ×2 (20:08→22:55)
[2023-05-11] MEDS: LORazepam 2 MG/ML SDV IVPUSH ONE (21:17)
[2023-05-11] MEDS: Insulin Regular, Human 100 Units/ML 3 ML Vial SUBCUT ONE (21:23)
[2023-05-11 21:40] LABS: APPEARANCE,URINE CLOUDY (CLEAR); BILIRUBIN,URINE NEGATIVE (NEGATIVE); COLOR,URINE YELLOW (YELLOW); GLUCOSE,URINE 500 mg/dL (NEGATIVE); KETONES,URINE 15 mg/dL (NEGATIVE); LEUKOCYTE ESTERASE,URINE NEGATIVE (NEGATIVE); NITRITE,URINE NEGATIVE (NEGATIVE); OCCULT BLOOD,URINE TRACE-LYSED (NEGATIVE); PH,URINE 5.5 (5.0-8.0); PROTEIN,URINE 30 mg/dL (NEGATIVE); UROBILINOGEN,URINE 0.2 EU/dL (0.2-1.0)
[2023-05-11 21:46] LABS: RBC,URINE 0-5 (0-5)
[2023-05-11 21:46] LABS: CORONAVIRUS COVID-19 NAA NEGATIVE (NEGATIVE); INFLUENZA A NAA NEGATIVE (NEGATIVE); INFLUENZA B NAA NEGATIVE (NEGATIVE); RESPIRATORY SYNCYTIAL VIR NAA NEGATIVE (NEGATIVE)
[2023-05-11 21:47] LABS: AMORPHOUS SEDIMENT,URINE NOT SEEN; BACTERIA,URINE MANY; EPITHELIAL CELLS,URINE MANY; MUCUS,URINE NOT SEEN
[2023-05-11 21:48] LABS: AMPHETAMINES SCREEN, URINE NEGATIVE (NEGATIVE); BARBITURATE SCREEN,URINE NEGATIVE (NEGATIVE); BENZODIAZEPINES SCREEN,URINE NEGATIVE (NEGATIVE); METHADONE SCREEN, URINE NEGATIVE (NEGATIVE); METHAMPHETAMINES SCREEN, URINE NEGATIVE (NEGATIVE); OXYCODONE SCREEN,URINE NEGATIVE (NEGATIVE); PROPOXYPHENE SCREEN,URINE NEGATIVE (NEGATIVE); THC SCREEN,URINE 50 NG/ML NEGATIVE (NEGATIVE)
[2023-05-11] MEDS: Potassium Chloride 20 MEQ Tab.ER PO ONE ×2 (22:15)
[2023-05-11] MEDS: Potassium Chloride 10% 20 MEQ/15 ML Soln 15 ML UD Cup PO ONE (22:15)
[2023-05-11] MEDS: Potassium Chloride 10 MEQ in Premix Bag 1 BAG IV ONE (22:38)
[2023-05-11] MEDS ORDERED: Nitroglycerin 0.4 MG Tab.SL SL PRN (22:48)
[2023-05-11] MEDS ORDERED: Non-Formulary Medication 1 Each (Evolocumab [Repatha Sureclick] 140 MG) SQ SCH (23:00)
[2023-05-11] MEDS: Haloperidol Lactate 5 MG/ML SDV IVPUSH ONE (23:17)
[2023-05-11] MEDS: cefTRIAXone 2 GM in Sodium Chloride 0.9% 50 ML IV ONE (23:19)
[2023-05-12] MEDS ORDERED: LORazepam 2 MG/ML SDV IVPUSH PRN (00:12)
[2023-05-12] MEDS: Haloperidol 5 MG Tab PO SCH (01:27)
[2023-05-12] MEDS: Sodium Chloride 0.9% 1,000 ML IV SCH (04:37)
[2023-05-12] MEDS: Insulin Lispro 100 Unit/ML 3 ML KwikPen SUBCUT SCH (10:25)
[2023-05-12] MEDS: Metoprolol Succinate 50 MG Tab.ER PO SCH (10:25)
[2023-05-12] MEDS: Empagliflozin 25 MG Tab PO SCH (10:25)
[2023-05-12] MEDS: Gabapentin 400 MG Cap PO SCH (18:13)
[2023-05-12] MEDS: metFORMIN 500 MG Tab PO SCH (18:13)
[2023-05-12] MEDS: Ondansetron 4 MG Tab.DIS PO PRN (21:10)
[2023-05-12] MEDS: cefTRIAXone 1 GM in Sodium Chloride 0.9% 50 ML IV SCH (21:10)
[2023-05-12] MEDS: Insulin Glargine,Human Rec. Analog 100 Units/ML 3 ML Pen SUBCUT SCH (21:13)
[2023-05-12] MEDS: Acetaminophen 325 MG Tab PO PRN (21:38)
[2023-05-12] MEDS: Ondansetron 4 MG Tab.DIS ONE (23:53)
[2023-05-12] MEDS: Acetaminophen 325 MG Tab ONE (23:54)
[2023-05-13] MEDS: metFORMIN 500 MG Tab PO SCH (10:01)
[2023-05-13 13:54] LABS: BASOPHILS PERCENT AUTO 0.2 % (0.1-1.3); EOSINOPHILS PERCENT AUTO 0.2 % (0.0-5.4); HEMATOCRIT 31.3 % (34.3-46.0); HEMOGLOBIN 10.7 g/dL (11.2-15.5); IMMATURE GRAN ABSOLUTE AUTO 0.14 K/uL (0.00-0.23); IMMATURE GRAN PERCENT AUTO 1.7 % (0.0-0.7); LYMPHOCYTES ABSOLUTE AUTO 1.35 K/uL (0.8-3.3); LYMPHOCYTES PERCENT AUTO 16.5 % (11.4-47.7); MEAN CORPUSCULAR HEMOGLOBIN 29.9 pg (31.6-35.5); MEAN CORPUSCULAR HGB CONC 34.2 g/dL (31.6-35.5); MEAN CORPUSCULAR VOLUME 87.4 fL (81.4-99.0); MONOCYTES ABSOLUTE AUTO 0.44 K/uL (0.20-0.90); MONOCYTES PERCENT AUTO 5.4 % (3.3-12.6); NEUTROPHILS ABSOLUTE AUTO 6.22 K/uL (1.0-7.6); PLATELET COUNT,PLT 315 K/uL (130-375); RED BLOOD CELL COUNT 3.58 M/uL (3.77-5.24); WHITE BLOOD CELL COUNT,WBC 8.2 K/uL (3.2-11.0)
[2023-05-13 13:55] LABS: BASOPHILS ABSOLUTE AUTO 0.02 K/uL (0.00-0.10); EOSINOPHILS ABSOLUTE AUTO 0.02 K/uL (0.00-0.40)
[2023-05-13 14:14] LABS: A/G RATIO 0.7 (1.2-2.2); ALANINE AMINOTRANSFERASE,ALT 24 U/L (12-78); ALBUMIN 2.7 g/dL (3.4-5.0); ALKALINE PHOSPHATASE 92 U/L (46-116); ASPARTATE AMNIOTRANSFERASE,AST 24 U/L (15-37); BILIRUBIN TOTAL 0.2 mg/dL (0.2-1.0); BLOOD UREA NITROGEN,BUN 12 mg/dL (7-18); CALCIUM 8.6 mg/dL (8.5-10.1); CARBON DIOXIDE,CO2 29 mmol/L (21-32); CHLORIDE,CL 102 mmol/L (100-108); CREATININE 0.9 mg/dL (0.6-1.0); EST CRCL DRUG DOSING (CG) 50.86 mL/min; ESTIMATED GFR 71 mL/min (>60); GLUCOSE RANDOM 188 mg/dL (74-106); POTASSIUM,K 3.5 mmol/L (3.6-5.2); PROTEIN TOTAL,TP 6.6 g/dL (6.4-8.2); SODIUM,NA 141 mmol/L (140-148)
[2023-05-13 14:15] LABS: ANION GAP 13.5 mmol/L (5.0-14.0)
[2023-05-13] MEDS: Magnesium Sulfate/Water 2 GM in Premix Bag 1 BAG IV SCH (18:55)
[2023-05-13] MEDS: Magnesium Sulfate/Water 4 GM in Premix Bag 1 BAG IV ONE (19:43)
[2023-05-14 04:52] LABS: MEAN CORPUSCULAR HEMOGLOBIN 30.2 pg (31.6-35.5); MEAN CORPUSCULAR HGB CONC 35.5 g/dL (31.6-35.5); MEAN CORPUSCULAR VOLUME 85.2 fL (81.4-99.0); RED BLOOD CELL COUNT 3.64 M/uL (3.77-5.24); WHITE BLOOD CELL COUNT,WBC 9.1 K/uL (3.2-11.0)
[2023-05-14 05:12] LABS: A/G RATIO 0.7 (1.2-2.2); ALANINE AMINOTRANSFERASE,ALT 22 U/L (12-78); ALBUMIN 2.7 g/dL (3.4-5.0); ALKALINE PHOSPHATASE 84 U/L (46-116); ASPARTATE AMNIOTRANSFERASE,AST 21 U/L (15-37); BILIRUBIN DIRECT 0.05 mg/dL (0.0-0.2); BILIRUBIN TOTAL 0.3 mg/dL (0.2-1.0); BLOOD UREA NITROGEN,BUN 8 mg/dL (7-18); CARBON DIOXIDE,CO2 27 mmol/L (21-32); CHLORIDE,CL 101 mmol/L (100-108); CREATININE 0.7 mg/dL (0.6-1.0); ESTIMATED GFR 95 mL/min (>60); GLUCOSE RANDOM 142 mg/dL (74-106); MAGNESIUM 2.1 mg/dL (1.8-2.4); PHOSPHORUS 1.8 mg/dL (2.5-4.9); PROTEIN TOTAL,TP 6.4 g/dL (6.4-8.2); SODIUM,NA 139 mmol/L (140-148)
[2023-05-14 05:22] LABS: ANION GAP 13.7 mmol/L (5.0-14.0); POTASSIUM,K 2.7 mmol/L (3.6-5.2)
[2023-05-14] MEDS: Potassium Chloride 20 MEQ Tab.ER PO ONE (05:55)
[2023-05-14] MEDS ORDERED: Potassium Chloride 10 MEQ in Premix Bag 1 BAG IV SCH (06:00)
[2023-05-14] MEDS: Potassium Phos in 0.9 % NaCl 250 ML IV ONE (06:13)
[2023-05-14] MEDS: Potassium Chloride 10 MEQ in Premix Bag 1 BAG IV ONE (06:14)
[2023-05-14] MEDS ORDERED: Potassium Phos in 0.9 % NaCl 250 ML IV ONE (07:30)
[2023-05-14] MEDS: Potassium Phosphates 15 MMOLE in Sodium Chloride 0.9% 250 ML IV ONE (09:55)
[2023-05-14] MEDS ORDERED: cefTRIAXone 1 GM Vial IV SCH (10:45)
[2023-05-14] MEDS: Potassium Chloride 20 MEQ Tab.ER PO SCH ×2 (12:26→22:11)
[2023-05-14 16:39] LABS: ALBUMIN 3.1 g/dL (3.4-5.0); BLOOD UREA NITROGEN,BUN 9 mg/dL (7-18); CALCIUM 8.7 mg/dL (8.5-10.1); CARBON DIOXIDE,CO2 27 mmol/L (21-32); CHLORIDE,CL 99 mmol/L (100-108); CREATININE 0.7 mg/dL (0.6-1.0); ESTIMATED GFR 95 mL/min (>60); GLUCOSE RANDOM 137 mg/dL (74-106); PHOSPHORUS 2.7 mg/dL (2.5-4.9); POTASSIUM,K 3.2 mmol/L (3.6-5.2); SODIUM,NA 137 mmol/L (140-148)
[2023-05-14 16:41] LABS: ANION GAP 14.2 mmol/L (5.0-14.0)
[2023-05-14] MEDS: cefTRIAXone 1 GM in Sodium Chloride 0.9% 50 ML IV SCH (22:11)
[2023-05-15 07:42] LABS: MEAN CORPUSCULAR HEMOGLOBIN 30.1 pg (31.6-35.5); MEAN CORPUSCULAR HGB CONC 35.3 g/dL (31.6-35.5); MEAN CORPUSCULAR VOLUME 85.2 fL (81.4-99.0); RED BLOOD CELL COUNT 3.99 M/uL (3.77-5.24); WHITE BLOOD CELL COUNT,WBC 9.9 K/uL (3.2-11.0)
[2023-05-15 08:11] LABS: A/G RATIO 0.8 (1.2-2.2); ALANINE AMINOTRANSFERASE,ALT 25 U/L (12-78); ALBUMIN 3.1 g/dL (3.4-5.0); ALKALINE PHOSPHATASE 98 U/L (46-116); ASPARTATE AMNIOTRANSFERASE,AST 16 U/L (15-37); BILIRUBIN DIRECT 0.08 mg/dL (0.0-0.2); BILIRUBIN TOTAL 0.3 mg/dL (0.2-1.0); BLOOD UREA NITROGEN,BUN 8 mg/dL (7-18); CALCIUM 8.7 mg/dL (8.5-10.1); CARBON DIOXIDE,CO2 27 mmol/L (21-32); CHLORIDE,CL 100 mmol/L (100-108); CREATININE 0.8 mg/dL (0.6-1.0); EST CRCL DRUG DOSING (CG) 57.22 mL/min; ESTIMATED GFR 81 mL/min (>60); GLUCOSE RANDOM 168 mg/dL (74-106); MAGNESIUM 2.1 mg/dL (1.8-2.4); PHOSPHORUS 2.8 mg/dL (2.5-4.9); SODIUM,NA 138 mmol/L (140-148)
[2023-05-15 08:12] LABS: C-REACTIVE PROTEIN < 0.50 mg/dL (<0.50)
[2023-05-15] MEDS ORDERED: LORazepam 2 MG/ML SDV IVPUSH PRN (08:54)
[2023-05-15] MEDS: Potassium Chloride 20 MEQ Tab.ER PO SCH (09:01)
[2023-05-15] MEDS: Potassium Chloride 10 MEQ in Premix Bag 1 BAG IV ONE (10:02)
[2023-05-15] MEDS: Haloperidol 5 MG Tab PO SCH (10:04)
[2023-05-15 13:26] VITALS: BP 157/66; PULSE 66
[2023-05-15] MEDS: cefTRIAXone 1 GM in Sodium Chloride 0.9% 50 ML IV SCH (14:06)
== END 2023-05-15 15:00 | disposition home or self-care (01) | DRG 690 ==
LOC: JP.ED 18:35 → JP.MS 22:38
PROVIDERS: ADMIT Internal Medicine; ATTEND Hospitalist
DX: N39.0 Urinary tract infection, site not specified (principal); I48.91 Unspecified atrial fibrillation; T39.1X1A Poisoning by 4-Aminophenol derivatives, accidental (unintentional), initial encounter; R41.0 Disorientation, unspecified; E86.0 Dehydration; J44.9 Chronic obstructive pulmonary disease, unspecified; M19.90 Unspecified osteoarthritis, unspecified site; G89.29 Other chronic pain; G43.909 Migraine, unspecified, not intractable, without status migrainosus; M79.7 Fibromyalgia; M54.50 Low back pain, unspecified; E87.6 Hypokalemia; I10 Essential (primary) hypertension; E83.39 Other disorders of phosphorus metabolism; B96.1 Klebsiella pneumoniae [K. pneumoniae] as the cause of diseases classified elsewhere; F17.210 Nicotine dependence, cigarettes, uncomplicated; M81.0 Age-related osteoporosis without current pathological fracture; F43.10 Post-traumatic stress disorder, unspecified; I25.2 Old myocardial infarction; I25.10 Atherosclerotic heart disease of native coronary artery without angina pectoris; D64.9 Anemia, unspecified; Z86.718 Personal history of other venous thrombosis and embolism; Z90.89 Acquired absence of other organs; E78.00 Pure hypercholesterolemia, unspecified; E11.9 Type 2 diabetes mellitus without complications; E66.9 Obesity, unspecified; Z68.23 Body mass index [BMI] 23.0-23.9, adult; Z98.890 Other specified postprocedural states; Z90.49 Acquired absence of other specified parts of digestive tract; Z90.710 Acquired absence of both cervix and uterus; Z93.2 Ileostomy status; Z87.442 Personal history of urinary calculi; Z88.0 Allergy status to penicillin; Z88.1 Allergy status to other antibiotic agents; Z88.2 Allergy status to sulfonamides; Z88.5 Allergy status to narcotic agent; Z93.3 Colostomy status; Z88.8 Allergy status to other drugs, medicaments and biological substances; Z68.21 Body mass index [BMI] 21.0-21.9, adult; Z79.84 Long term (current) use of oral hypoglycemic drugs; Z79.4 Long term (current) use of insulin; Z79.899 Other long term (current) drug therapy
CPT/HCPCS: 0241U; 36415; 70450; 80053; 80069; 80076; 80143; 80305; 80307; 81001; 82140; 82550; 82947; 83735; 83880; 84132; 85025; 85027; 85651; 86140; 87086; 87088; 87186; 93005; 97110; 97161; 97165; 72100; 72100-26; 99233; 99239; A9270-GY; J0696; J1630; J1815; J1815-GY; J2405; J3475; J3480; J3490; J7030; J7050; Q0162